=== PATIENT | female | born 1955 | race Caucasian/White ===

== ENCOUNTER 2019-06-07 08:20 | Outpatient (CLI) | payer OTHER, BC, SELFPAY ==
[2019-06-07 08:38] LABS: Hematocrit 41.9 % (35.0-49.0); Hemoglobin 13.6 g/dL (12.0-15.0); Mean Corpuscular HGB Conc 32.5 g/dL (32.0-36.0); Mean Corpuscular Hemoglobin 31.7 pg (27.0-31.0); Mean Corpuscular Volume 97.7 fL (78.0-102.0); Mean Platelet Volume 9.6 fl (9.2-11.8); Platelet Count Result 219 K/mm3 (150-420); Red Blood Count 4.29 M/mm3 (4.20-5.40); White Blood Count 5.1 K/mm3 (4.8-10.8)
[2019-06-07 09:17] LABS: Alanine Aminotransferase 29 U/L (14-59); Albumin Level 4.9 g/dL (3.4-5.0); Alkaline Phosphatase 80 U/L (46-116); Anion Gap 12.5 mmol/L (7-16); Aspartate Amino Transferase 33 U/L (15-37); Bilirubin Direct 0.2 mg/dL (0-0.2); Bilirubin,Total 0.7 mg/dL (0.00-1.00); Blood Urea Nitrogen 11 mg/dL (7-18); Calcium 9.5 mg/dL (8.5-10.1); Carbon Dioxide 31 mmol/L (21-32); Chloride 106 mmol/L (98-108); Cholesterol 155 mg/dL (0-200); Estimated Glomerular Filt Rate > 60; Glucose 87 mg/dL (70-99); HDL Direct 76 mg/dL (40-60); LDL Cholesterol Calculated 67 mg/dL (<130); Osmolality Calculated 298 mOsm/kg (285-295); Potassium 4.5 mmol/L (3.5-5.1); Sodium 145 mmol/L (136-145); Total Protein 7.3 g/dL (6.4-8.2); Triglycerides 59 mg/dL (0-150)
[2019-06-10 18:55] LABS: Immunoglobulin G 557 mg/dL (600-1540)
[2019-06-11 01:09] LABS: NIL 0.02 IU/mL; Quantiferon TB Plus, 1T NEGATIVE (NEGATIVE); TB1-NIL 0.01 IU/mL
== END 2019-06-07 08:21 | disposition home or self-care (01) ==
LOC: CHSLAB 08:24
PROVIDERS: PCP Family Medicine
DX: R13.10 Dysphagia, unspecified (principal); I10 Essential (primary) hypertension; Z79.899 Other long term (current) drug therapy
CPT/HCPCS: 36415; 80048; 80061; 80076; 82784; 85027; 86480

== ENCOUNTER 2019-06-10 08:48 | Outpatient (RCR) | payer OTHER, BC, SELFPAY ==
--- NOTE | 2019-06-10 10:06 | PTOPEVAL ---
Thank you for referring this patient to [facility]. Please review, sign, date and return this plan of care DC. I agree with and certify that the following plan of care is medically necessary. Referring Physician Date Admitting Provider: Attending Provider: Florencio Reyes MD Referring Provider: *PT Outpatient Evaluation Start: 06/10/19 08:53 Freq: Status: Active Protocol: Document 06/10/19 08:53 BRIA (Rec: 06/10/19 09:34 BRAI [id number]) Therapy Assessment Status Assessment Status Assessment Status Evaluation Evaluation Information Problem Diagnosis right knee ankylosis Onset 05/27/19 Subjective Information Pt. reports that she has noted Query Text:As Reported By Patient/ increasing stiffening of the Family right knee. She reports that she is tripping more often due to inability to bend her knee . She reports that she notes that her toe catches the ground because she cannot bend her knee. She notes that she has changed the way she walks due to difficulty with right knee mobility. She has hx bilateral MERRY, bilateral TKA and left ankle replacement. She reports that her goal is to improve her right knee mobility and states that she is hopeful to reduce right knee pain. Diagnostic Tests X-Rays For This Problem Yes Prior Level of Function Activity Level (Last 3 Months) Occupation retired Hand Dominance Right Activity of Daily Living Ability Independent Indoor/Home Mobility Independent Community Mobility Independent Stairs Ability Independent Functional Cognition (Planning, Shopping Independent , Taking Medications) Cooking Yes Cleaning Yes Laundry Yes Shopping Yes Driving Yes Pain Assessment Pain Scale Pain Scale Used Numeric (1 - 10) Self Report Pain Assessment Right Knee(s) Reported Pain Level 5 Pain Frequency Continuous Current Pain Intensity 5 Lowest Pain Intensity 3 Greatest Pain Intensity 9 Pain Aggravating Factors Prolonged Position,Stair
--- NOTE | 2019-07-22 08:21 | PTOPEVAL ---
Thank you for referring Qing Abdullahi to [facility]. Please review, sign, date and return this plan of care DC. I agree with and certify that the following plan of care is medically necessary. Referring Physician Date Admitting Provider: Attending Provider: Florencio Reyes MD Referring Provider: *PT Outpatient Evaluation Start: 06/10/19 08:53 Freq: Status: Active Protocol: Document 07/15/19 08:16 BRIA (Rec: 07/15/19 08:28 BRIA [id number]) Therapy Assessment Status Assessment Status Assessment Status Re-evaluation Outpatient Past Medical History Neurological History Hx Neurological Disorders No Significant History Cardiovascular History Hx Hypertension Yes Respiratory History Hx Chronic Obstructive Pulmonary Disease Yes (COPD) Gastrointestinal History Hx Other Gastrointestinal Disorders Yes: DYSPHAGIA Genitourinary History Hx Kidney Stones Yes: 2013 Musculoskeletal History Hx Arthritis Yes: RHEUMATOID Hx Joint Replacement Yes: BILATERAL SHOULDER, HIP, KNEE & L ANKLE Hematological History Hx Blood Transfusion Reaction Yes: AFTER SURGERY Endocrine History Hx Endocrine Disorders No Significant History HEENT History Hx Sinus Problems Yes: SEPTOPLASTY / TURBINECTOMY Integumentary History Hx Skin Disorders No Significant History Reproductive History Hx Reproductive Disorders No Significant History Psychosocial History Hx Psychiatric Disorders No Significant History Pain History History of Any Previous or Ongoing No Significant History Instance of Pain Anesthesia History Hx Post-Op Nausea/Vomiting Yes Evaluation Information Problem Diagnosis right knee ankylosis Subjective Information Pt. reports that she continues Query Text:As Reported By Patient/ to note improved mobility. Family She does have pain, but states that it is more mild today. She reports that she is able to walk over uneven terrain with less pain. Pain Assessment Pain Scale Pain Scale Used Numeric (1 - 10) Self Report Pain Assessment Right Knee(s) Reported Pain Level 2 Pain Score Pain Score 2: Self Report Lower Extremity Range of Motion General Lower Extremity Range of Motion Gross Lower Extremity Range of Motion right knee AROM 5-65 degrees Comments Lower Extremity Muscle Strength Testing General Lower Extremity Strength Gross Lower Extremity Strength bilateral hip flexion 4+/5, right hip abduction 4-/5, left
== END 2019-08-08 10:51 | disposition home or self-care (01) ==
LOC: CHSPT 08:48
PROVIDERS: Visit Provider Orthopaedic Surgery
DX: M24.669 Ankylosis, unspecified knee (principal)
CPT/HCPCS: 97110; 97112; 97140; 97161

== ENCOUNTER 2019-06-27 01:32 | Day surgery (SDC) | payer OTHER, BC, SELFPAY ==
[2019-06-21 13:09] VITALS: BMI 22.5
[2019-06-27 08:31] VITALS: BP 140/66; PULSE 70; RESP 16; TEMP 37.3; O2SAT 98; BMI 21.9
--- NOTE | 2019-06-27 08:45 | WPDANESEPPF ---
Anes - Initial Pre Proc Eval Procedure: Operation Date: 06/27/19 09:15 Proposed Procedures p Esophagogastroduodenoscopy - Randy Jang MD Date/Time: 06/27/19 08:45 Surgeon: Randy Jang MD Pre Op Diagnosis: Dysphagia Patient Data Age: 63 Gender: F Height: 1.65 m Weight: 59.7 kg Last Vital Signs Temp 37.3 C 06/27/19 08:31 Pulse 70 06/27/19 08:31 Resp 16 06/27/19 08:31 BP 140/66 06/27/19 08:31 Pulse Ox 98 06/27/19 08:31 Allergies Allergy/AdvReac Type Severity Reaction Status Date / Time levofloxacin [Levaquin] Allergy Intermediate Unknown Verified 06/27/19 08:30 Penicillins Allergy Intermediate Unknown Verified 06/27/19 08:30 clindamycin AdvReac Severe Itching on Verified 06/27/19 08:30 scalp Cephalosporins AdvReac Mild Itching Verified 06/27/19 08:30 Mushroom AdvReac Intermediate ARTHRITIS Uncoded 06/27/19 08:30 SWELLS UP. Home Medications Medication Instructions Recorded Confirmed Type cetirizine 5 mg-pseudoephedrine ER 1 tablet PO Q12H 03/07/19 06/21/19 History 120 mg tablet,extended release,12hr lisinopril 20 mg tablet 20 mg PO DAILY 03/07/19 06/21/19 History oxaprozin 600 mg tablet 1,200 mg PO DAILY tablet 03/07/19 06/21/19 History ranitidine HCl 150 mg tablet 150 mg PO BID tablet 03/07/19 06/21/19 History ascorbic acid (vitamin C) 500 mg 500 mg PO DAILY 05/27/19 06/21/19 History capsule black cohosh 540 mg capsule 540 mg PO DAILY 05/27/19 06/21/19 History cholecalciferol (vitamin D3) 125 125 mcg PO DAILY 05/27/19 06/21/19 History mcg (5,000 unit) capsule cranberry extract 250 mg capsule 250 mg PO DAILY 05/27/19 06/21/19 History folic acid 800 mcg tablet 0.8 mg PO DAILY 05/27/19 06/21/19 History omeprazole 20 mg capsule,delayed 20 mg PO DAILY 05/27/19 06/21/19 History release potassium gluconate 595 mg (99 mg) 595 mg PO DAILY 05/27/19 06/21/19 History tablet pyridoxine (vitamin B6) 100 mg 100 mg PO DAILY 05/27/19 06/21/19 History tablet vitamin A 8,000 unit PO DAILY 06/21/19 06/21/19 History Patient hx anesthesia problems: none Family hx anesthesia problems: none [facility] Past Medical History Medical History (Updated 06/27/19 @ 08:44 by Krzysztof Bianchi DO) Arthrofibrosis of knee joint Colon cancer screening Dysphagia History of revision of total replacement of right knee joint (~06/2010) Hypertension Rheumatoid arthritis Surgical History Surgical History History of left ankle joint replacement (~08/2015) History of left hip replacement (~02/2008) History of left knee replacement (~11/2000) History of left shoulder replacement (~06/2011) History of total replacement of right shoulder joint (~09/2003) History of total right hip replacement (~01/2008) History of total right knee replacement (~04/2000) Social History Social History Smoking status: Never smoker Alcohol intake: never Substance use: never Anes - Eval Final PreProcedure Day of Procedure 06/27/19 08:45 Patient weight: normal Heart: regular rate and rhythm Lungs: clear to auscultation and normal air movement Airway: Mallampati scale class II Neurological: alert and oriented Last oral intake: >/= 8 hours ASA classification: III Emergent: no Anesthetic plan: proceed Anesthesia type and monitoring: general GIVS and standard monitoring Informed Consent: The patient's anesthetic plan and its attendant risks and benefits were discussed with the patient/family/POA. Questions were solicited and answers provided to the satisfaction of the patient/family/POA.
[2019-06-27] MEDS: LACTATED RINGERS 1,000 ML 150 ML IV CONT (08:51)
--- NOTE | 2019-06-27 09:08 | WPDHPUPDATE1 ---
History and Physical Update Update Date/Time: 06/27/19 09:08 History and Physical has been reviewed, including an updated exam of the patient. There are NO changes in the patient's condition. Risks, benefits, and alternatives have been discussed and questions answered. Patient agrees to proceed with procedure.
[2019-06-27 09:30] VITALS: BP 120/63; PULSE 74; RESP 16; O2SAT 100
[2019-06-27 09:40] VITALS: BP 146/74; PULSE 77; RESP 16; O2SAT 100
[2019-06-27 09:50] VITALS: BP 122/77; PULSE 69; RESP 16; O2SAT 100
== END 2019-06-27 09:50 | disposition home or self-care (01) ==
PROVIDERS: PCP Family Medicine; Visit Provider Internal Medicine Gastroenterology
PROC: 0DJ08ZZ Inspection of Upper Intestinal Tract, Via Natural or Artificial Opening Endoscopic (ICD-10-PCS; CPT 43235; principal; 2019-06-27 09:15)
DX: R13.10 Dysphagia, unspecified (principal); K21.0 Gastro-esophageal reflux disease with esophagitis; K29.50 Unspecified chronic gastritis without bleeding; M06.9 Rheumatoid arthritis, unspecified; I10 Essential (primary) hypertension
CPT/HCPCS: 43239; 87081; 88305; J2704; J7120

== ENCOUNTER 2019-07-02 12:13 | Outpatient (CLI) | payer OTHER, BC, SELFPAY ==
--- NOTE | ~2019-07-02 | US_ITS ---
EXAMINATION: US renal BI EXAM DATE: 07/02/2019 12:49 INDICATION: Bilateral lower flank pain. TECHNIQUE: Multiple grayscale and Doppler images of the kidneys were obtained (by a technologist who performed the scan) and subsequently reviewed. There is no prior study for comparison. FINDINGS: Right kidney: There is normal contour and echogenicity. It measures 10.5 x 3.5 centimeters. There is a cyst measuring about 1.5 cm, another smaller cyst. Additional 5 mm hyperechoic focus with posterio r shadowing, could be nephrolithiasis. There is no hydronephrosis. Left kidney: There is normal contour and echogenicity. It measures 11.4 x 4.1 x 4.2 centimeters. The re is a cystic mass in the superior pole of the left kidney with septation, and possibly wall thicken ing. This measures up to 3.6 cm, size may be mildly increased compared to a CT scan from 2013. Ther e is no hydronephrosis. Bladder unremarkable. IMPRESSION: 1. Left renal lesion with mild complexity, mild interval increase in size compared to 2013. Recomme nd renal MRI examination for further evaluation. 2. Probable right nephrolithiasis. Reviewed, dictated and finalized at location A. IMPRESSION: 1. Left renal lesion with mild complexity, mild interval increase in size comp ared to 2013. Recommend renal MRI examination for further evaluation. 2. Probable right nephrolithiasis.
== END 2019-07-02 12:14 | disposition home or self-care (01) ==
LOC: CHSIMG 12:15
PROVIDERS: PCP Family Medicine; Visit Provider Nurse Practitioner Family
DX: R10.9 Unspecified abdominal pain (principal); R31.9 Hematuria, unspecified
CPT/HCPCS: 76775

== ENCOUNTER 2019-07-06 08:20 | Outpatient (CLI) | payer OTHER, BC, SELFPAY ==
[2019-07-06 09:32] LABS: Estimated Glomerular Filt Rate > 60
== END 2019-07-06 08:21 | disposition home or self-care (01) ==
LOC: CHSIMG 08:22
PROVIDERS: PCP Family Medicine; Visit Provider Nurse Practitioner Family
DX: N28.89 Other specified disorders of kidney and ureter (principal)
CPT/HCPCS: 99199

== ENCOUNTER 2019-07-27 08:08 | Outpatient (CLI) | payer OTHER, BC, SELFPAY ==
--- NOTE | ~2019-07-27 | MR_ITS ---
EXAMINATION: MR abdomen wo/w con DATE: 07/27/2019 10:58 INDICATION: Left kidney mass. TECHNIQUE: Magnetic resonance imaging (MRI) of the abdomen was performed without and with 10 mL Multi Ramona intravenous contrast. Sequences included coronal T2-weighted FS FSE, coronal and axial FIESTA F S, coronal LAVA-flex, axial LAVA, axial T2-weighted FSE, axial T1-weighted dual-echo FSPGR, axial STI R FSE, and axial DWI. Postcontrast sequences included coronal LAVA-flex and a time course of axial LA VA. COMPARISON: Ultrasound kidneys 07/02/2019, CT abdomen and pelvis 12/03/2012 FINDINGS: Breast implants are noted. There is a 5 mm cyst in the liver. The gallbladder, spleen, pancreas, and adrenal glands are normal. There are simple cysts in the kidneys measuring up to 1.8 cm on the right. There is a 4.4 cm cyst in left kidney with a few thin septa (Bosniak type II). There are no dilated loops of bowel. There are no pathologically enlarged lymph nodes. There is no free intraperitoneal fl uid. IMPRESSION: 1. Benign cysts in the kidneys. Reviewed, dictated and finalized at location A.
[2019-07-27 09:16] LABS: Estimated Glomerular Filt Rate > 60
== END 2019-07-27 08:09 | disposition home or self-care (01) ==
LOC: CHSIMG 08:10
PROVIDERS: PCP Family Medicine; Visit Provider Family Medicine
DX: N28.89 Other specified disorders of kidney and ureter (principal)
CPT/HCPCS: 74183; A9577

== ENCOUNTER 2019-07-30 10:44 | Outpatient (CLI) | payer OTHER, BC, SELFPAY ==
--- NOTE | ~2019-07-30 | XR_ITS ---
EXAMINATION: XR sacroiliac joints min 3V, XR lumbar spine 2-3V DATE: 07/30/2019 11:08 INDICATION: Dorsalgia TECHNIQUE: 1. Anteroposterior and lateral views of the lumbar spine, and cone-down lateral view of the lumbosacr al junction were obtained. 2. AP and left and right oblique views of the sacroiliac joints were obtained. COMPARISON: 11/10/2016 FINDINGS: Lumbar spine: 3 mm anterolisthesis L4 on L5. Vertebral body heights are normal. Mild disc height loss at L3-L4 and L4-L5. Severe disc height loss at L5-S1. Multilevel bilateral lumbar facet osteoarthritis, severe on the right at L4-L5 and moderate on the left at L4-L5 and L5-S1, otherwise mild. Multiple stones proje ct over the upper pole of the right kidney. Sacroiliac joints: Mild bilateral sacroiliac osteoarthritis with no evident erosions to suggest an inflammatory sacroili itis. Sacral arches appear intact. Partially visualized bilateral total hip arthroplasties. Multiple surgical clips near left inguinal region suggesting prior hernia repair. IMPRESSION: 1. Severe spondylosis at L5-S1 with lesser spondylosis in the more cephalad lumbar spine. 2. Mild bilateral sacroiliac osteoarthritis. 3. Right nephrolithiasis. Reviewed, dictated and finalized at location A. IMPRESSION: 1. Severe spondylosis at L5-S1 with lesser spondylosis in the more cephalad lum bar spine. 2. Mild bilateral sacroiliac osteoarthritis. 3. Right nephrolithiasis.
[2019-07-30 11:27] LABS: Add Urine Microscopic? YES; Appearance Urine Sl Cloudy (Clear); Bilirubin Urine Negative (Negative); Blood Urine 3+ (Negative); Color Urine Yellow (Yellow); Glucose Urine UA Negative (Negative); Ketones Urine Negative (Negative); Leukocyte Esterase Ur Negative (Negative); Nitrate Urine Negative (Negative); Protein Urine Negative (Negative); Urobilinogen Urine 0.2 mg/dL (0.2-1.0)
[2019-07-30 11:32] LABS: Bacteria Urine Trace /hpf; RBC Urine 51-75 /hpf (0-2); Squamous Epithelial Cell Urine Rare /hpf (Few); WBC Urine 0-3 /hpf (0-3)
== END 2019-07-30 10:45 | disposition home or self-care (01) ==
PROVIDERS: PCP Family Medicine; Visit Provider Family Medicine
DX: R31.9 Hematuria, unspecified (principal); M54.9 Dorsalgia, unspecified
CPT/HCPCS: 72100; 72202; 81001

== ENCOUNTER 2019-10-22 10:52 | Outpatient (CLI) | payer OTHER, BC, SELFPAY ==
[2019-10-22 11:08] LABS: Basophils Absolute Auto 0.02 K/mm3 (0.00-0.10); Basophils Percent Auto 0.5 % (0.0-1.0); Eosinophils Absolute Auto 0.07 K/mm3 (0.02-0.50); Eosinophils Percent Auto 1.8 % (1.0-6.0); Hematocrit 39.4 % (35.0-49.0); Hemoglobin 13.1 g/dL (12.0-15.0); Immature Granulocyte Absolute 0.01 K/mm3 (0.00-0.00); Immature Granulocyte Percent A 0.3 % (0.0-0.0); Lymphocytes Absolute Auto 1.41 K/mm3 (1.10-4.50); Lymphocytes Percent Auto 35.3 % (18.0-42.0); Mean Corpuscular HGB Conc 33.2 g/dL (32.0-36.0); Mean Corpuscular Hemoglobin 32.1 pg (27.0-31.0); Mean Corpuscular Volume 96.6 fL (78.0-102.0); Mean Platelet Volume 9.5 fl (9.2-11.8); Monocytes Absolute Auto 0.32 K/mm3 (0.10-0.90); Neutrophils Absolute Auto 2.2 K/mm3 (1.7-7.2); Neutrophils Percent Auto 54.1 % (50.0-70.0); Platelet Count Result 243 K/mm3 (150-420); Red Blood Count 4.08 M/mm3 (4.20-5.40); Red Cell Distribution Width 12.9 % (11.6-14.4)
== END 2019-10-22 10:53 | disposition home or self-care (01) ==
PROVIDERS: PCP Internal Medicine Rheumatology; Visit Provider Internal Medicine Rheumatology
DX: Z79.899 Other long term (current) drug therapy (principal)
CPT/HCPCS: 36415; 85025

== ENCOUNTER 2020-03-02 10:39 | Outpatient (CLI) | payer OTHER, BC, SELFPAY ==
--- NOTE | ~2020-03-02 | DEXA_ITS ---
Bone Density Report Name: Qing Abdullahi Age: 64 Sex: Female Ethnicity: White Date of : 1955 Indication: postmenopausal; screening for osteoporosis; rheumatoid arthritis; Referring Provider: Debbie, Mervin Perkins Study: Bone densitometry was performed. Exam Date: March 02, 2020 Accession number: [id number] Bone Density: Region BMD T-score Z-score Classification AP Spine(L1-L4) 0.907 -1.3 0.3 Osteopenia World Health Organization criteria for BMD impression classify patients as: Normal (T-score at or above -1.0), Osteopenia (T-score between -1.0 and -2.5), or Osteoporosis (T-score at or below -2.5). Previous Exams: Region Exam Age BMD T-score BMD Change BMD Change Date g/cm2 vs Baseline vs Previous AP Spine (L1-L4) 03/02/2020 64 0.907 -1.3 -0.136 (-13.1% -0.136 (-13.1% 09/19/2011 55 1.044 0.0 *Denotes significance at 95% confidence level, LSC for AP Spine = 0.022 g/cm2 # Denotes dissimilar scan types or analysis methods Clinical Information Provided by Patient: Has rheumatoid arthritis Has used the following medications: Vitamin D Patient maximum height was 65 Drinks caffeinated beverages Onset of menses at age 19 Number of children 0 Impression: The patient has low bone mass, based on the Total Spine T-score. No significant bone loss was observed. Discussion: BONE DENSITY IS LOW AT ONE OR MORE SKELETAL SITES. This patient's lowest T-score is low at one or more skeletal sites. It meets the World Health Organization's (WHO) criteria for ?low bone mass? (T-score between -1.0 and -2.5). The patient's 10-year risk of fracture as calculated by FRAX is less than the threshold where pharmacological therapy is recommended by the National Osteoporosis Foundation (NOF). However, all treatment decisions require clinical judgment and consideration of individual patient factors, including patient preferences, comorbidities, previous drug use, risk factors not captured in the FRAX model (e.g., frailty, falls, vitamin D deficiency, increased bone turnover, interval significant decline in bone density) and possible under or overestimation of fracture risk by FRAX. The patient should follow a healthful lifestyle (good nutrition with adequate calcium and vitamin D, and appropriate weight-bearing exercise). Follow-Up: Consider repeating this study in 2 to 3 years to reassess this patient's status, or sooner if there is some new clinical indication. Reported by: Dr. Rommel Wild on 03/02/2020 11:23:00 AM. Reviewed, dictated and finalized at location A. [facility]
== END 2020-03-02 10:40 | disposition home or self-care (01) ==
LOC: CHSIMG 10:42
PROVIDERS: PCP Internal Medicine Rheumatology; Visit Provider Internal Medicine Rheumatology
DX: Z78.0 Asymptomatic menopausal state (principal)
CPT/HCPCS: 77080

== ENCOUNTER 2020-03-31 14:40 | Outpatient (CLI) | payer OTHER, BC, SELFPAY ==
[2020-03-31 14:55] LABS: Basophils Absolute Auto 0.02 K/mm3 (0.00-0.10); Basophils Percent Auto 0.5 % (0.0-1.0); Eosinophils Absolute Auto 0.07 K/mm3 (0.02-0.50); Eosinophils Percent Auto 1.6 % (1.0-6.0); Hematocrit 38.3 % (35.0-49.0); Hemoglobin 12.5 g/dL (12.0-15.0); Immature Granulocyte Absolute 0.03 K/mm3 (0.00-0.00); Immature Granulocyte Percent A 0.7 % (0.0-0.0); Lymphocytes Absolute Auto 1.75 K/mm3 (1.10-4.50); Lymphocytes Percent Auto 39.7 % (18.0-42.0); Mean Corpuscular HGB Conc 32.6 g/dL (32.0-36.0); Mean Corpuscular Hemoglobin 32.3 pg (27.0-31.0); Mean Platelet Volume 9.3 fl (9.2-11.8); Monocytes Absolute Auto 0.43 K/mm3 (0.10-0.90); Monocytes Percent Auto 9.8 % (2.0-11.0); Neutrophils Absolute Auto 2.1 K/mm3 (1.7-7.2); Neutrophils Percent Auto 47.7 % (50.0-70.0); Platelet Count Result 295 K/mm3 (150-420); Red Blood Count 3.87 M/mm3 (4.20-5.40); Red Cell Distribution Width 12.8 % (11.6-14.4); White Blood Count 4.4 K/mm3 (4.8-10.8)
[2020-03-31 15:11] LABS: Alanine Aminotransferase 30 U/L (14-59); Albumin Level 4.5 g/dL (3.4-5.0); Alkaline Phosphatase 100 U/L (46-116); Aspartate Amino Transferase 28 U/L (15-37); Bilirubin Direct 0.2 mg/dL (0-0.2); Bilirubin,Total 0.5 mg/dL (0.00-1.00); Estimated Glomerular Filt Rate 47; Total Protein 7.6 g/dL (6.4-8.2)
== END 2020-03-31 14:41 | disposition home or self-care (01) ==
LOC: CHSLAB 14:42
PROVIDERS: PCP Family Medicine; Visit Provider Internal Medicine Rheumatology
DX: Z79.899 Other long term (current) drug therapy (principal)
CPT/HCPCS: 36415; 80076; 82565; 85025

== ENCOUNTER 2020-06-17 11:07 | Outpatient (CLI) | payer OTHER, BC, SELFPAY ==
--- NOTE | ~2020-06-17 | XR_ITS ---
EXAMINATION: XR shoulder LT min 2V DATE: 06/17/2020 11:46 INDICATION: Left shoulder pain TECHNIQUE: AP internally and externally rotated, AP oblique externally rotated and transscapular Y vi ews of the left shoulder were obtained. COMPARISON: None FINDINGS: Left shoulder hemiarthroplasty with noncemented humeral component which appears well seated in near-a natomic alignment. There is remodeling of the glenoid with prominent osteophytes along the inferior g lenoid. No fracture. Mild left acromioclavicular osteoarthritis with inferior directed osteophytes. S oft tissues are unremarkable. Multiple scattered tiny calcified pulmonary nodules consistent with old granulomatous disease. Moderate to severe lower cervical facet osteoarthritis. IMPRESSION: Left glenohumeral hemiarthroplasty with likely secondary remodeling of the glenoid. No acute osseous abnormality. Reviewed, dictated and finalized at location B. NESS CONSULT IMPRESSION: Left glenohumeral hemiarthroplasty with likely secondary remodeling of the mayank oid. No acute osseous abnormality.
--- NOTE | ~2020-06-17 | XR_ITS ---
EXAMINATION: XR_CERV2-3V_CR EXAM DATE: 06/17/2020 11:46 INDICATION: Cervical pain after fall. TECHNIQUE: Cervical spine frontal, lateral, lateral swimmers, submentovertex and open-mouth odontoid projections. Prior study from 06/15/2011 not retrieving at this time. FINDINGS: There is no evidence of acute cervical fracture. The odontoid process is intact. Pre-dens space is normal. Prevertebral soft tissue is normal. There are no soft tissue abnormalities identi fied. Cervical disc heights are maintained. There is advanced cervical arthropathy and likely causin g multilevel neural foraminal stenosis. Bilateral shoulder replacements. The vertebral bodies are al igned in the AP dimension. Lung apices are clear. IMPRESSION: 1. No acute cervical findings. 2. Advanced cervical arthropathy. Reviewed, dictated and finalized at location A. [employer]
== END 2020-06-17 11:08 | disposition home or self-care (01) ==
LOC: CHSIMG 11:10
PROVIDERS: PCP Family Medicine; Visit Provider Family Medicine
DX: M25.512 Pain in left shoulder (principal)
CPT/HCPCS: 72040; 73030

== ENCOUNTER 2020-06-23 07:40 | Outpatient (RCR) | payer OTHER, BC, SELFPAY ==
--- NOTE | 2020-06-23 08:25 | PTOPEVAL ---
Thank you for referring Qing Abdullahi to [facility].? The patient is scheduled to be seen for therapy? __2__x/week for 10 visits. Please review, sign, date and return this plan of care DC. I agree with and certify that the following plan of care is medically necessary. Referring Physician Date Admitting Provider: Attending Provider: Krunal Sarmiento DO Referring Provider: *PT Outpatient Evaluation Start: 06/23/20 07:06 Freq: Status: Active Protocol: Document 06/23/20 07:07 BRIA (Rec: 06/23/20 08:00 BRIA [id number]) Therapy Assessment Status Assessment Status Assessment Status Evaluation Outpatient Past Medical History Neurological History Hx Neurological Disorders No Significant History Cardiovascular History Hx Hypertension Yes Respiratory History Hx Chronic Obstructive Pulmonary Disease Yes (COPD) Gastrointestinal History Hx Other Gastrointestinal Disorders Yes: DYSPHAGIA Genitourinary History Hx Kidney Stones Yes: 2013 Musculoskeletal History Hx Arthritis Yes: RHEUMATOID Hx Joint Replacement Yes: BILATERAL SHOULDER, HIP, KNEE & L ANKLE Hematological History Hx Blood Transfusion Reaction Yes: AFTER SURGERY Endocrine History Hx Endocrine Disorders No Significant History HEENT History Hx Sinus Problems Yes: SEPTOPLASTY / TURBINECTOMY Integumentary History Hx Skin Disorders No Significant History Reproductive History Hx Reproductive Disorders No Significant History Psychosocial History Hx Psychiatric Disorders No Significant History Pain History History of Any Previous or Ongoing No Significant History Instance of Pain Anesthesia History Hx Post-Op Nausea/Vomiting Yes Evaluation Information Problem Diagnosis shoulder pain left, cervicalgia, unsteady gait Onset 06/08/20 Subjective Information Pt. reports that she stumbled Query Text:As Reported By Patient/ and fell into the door frame Family while in her home. She describes striking the front of the left shoulder and into the left side of the neck. In the past weeks she has fallen 2 times. She reports that her pain intensity is staying consistent. She reports that her pain is constant and does not have anything specific that triggers her pain. she reports that the pain does
== END 2020-07-23 11:17 | disposition home or self-care (01) ==
LOC: CHSPT 07:40
PROVIDERS: PCP Family Medicine; Visit Provider Family Medicine
DX: R26.81 Unsteadiness on feet (principal); M25.519 Pain in unspecified shoulder; M54.2 Cervicalgia
CPT/HCPCS: 97014; 97110; 97140; 97162; G0283

== ENCOUNTER 2020-06-29 07:45 | Outpatient (CLI) | payer OTHER, BC, SELFPAY ==
--- NOTE | 2020-06-29 07:47 | ECG_ITS ---
Measurements Intervals [place] Rate: 61 P: 79 CO: 157 QRS: 65 QRSD: 105 T: 72 QT: 410 QTc: 415 Interpretive Statements SINUS RHYTHM POSSIBLE LEFT ATRIAL ENLARGEMENT INCOMPLETE RIGHT BUNDLE BRANCH BLOCK BORDERLINE ECG Electronically Signed On 06-29-2020 8:18:53 CDT by Jose Alberto Jessica D.O.
== END 2020-06-29 07:46 | disposition home or self-care (01) ==
LOC: CHSCARD 07:47
PROVIDERS: PCP Family Medicine; Visit Provider Family Medicine
DX: Z01.818 Encounter for other preprocedural examination (principal)
CPT/HCPCS: 93005

== ENCOUNTER 2020-07-09 07:22 | Outpatient (CLI) | payer OTHER, BC, SELFPAY ==
[2020-07-09 07:32] LABS: Basophils Absolute Auto 0.02 K/mm3 (0.00-0.10); Basophils Percent Auto 0.4 % (0.0-1.0); Eosinophils Absolute Auto 0.04 K/mm3 (0.02-0.50); Eosinophils Percent Auto 0.9 % (1.0-6.0); Hemoglobin 12.8 g/dL (12.0-15.0); Immature Granulocyte Absolute 0.02 K/mm3 (0.00-0.00); Immature Granulocyte Percent A 0.4 % (0.0-0.0); Lymphocytes Absolute Auto 1.32 K/mm3 (1.10-4.50); Lymphocytes Percent Auto 28.5 % (18.0-42.0); Mean Corpuscular HGB Conc 32.8 g/dL (32.0-36.0); Mean Corpuscular Hemoglobin 32.6 pg (27.0-31.0); Mean Corpuscular Volume 99.2 fL (78.0-102.0); Mean Platelet Volume 8.9 fl (9.2-11.8); Monocytes Absolute Auto 0.49 K/mm3 (0.10-0.90); Monocytes Percent Auto 10.6 % (2.0-11.0); Neutrophils Absolute Auto 2.7 K/mm3 (1.7-7.2); Neutrophils Percent Auto 59.2 % (50.0-70.0); Platelet Count Result 245 K/mm3 (150-420); Red Blood Count 3.93 M/mm3 (4.20-5.40); Red Cell Distribution Width 13.4 % (11.6-14.4); White Blood Count 4.6 K/mm3 (4.8-10.8)
[2020-07-09 08:05] LABS: Alanine Aminotransferase 35 U/L (14-59); Albumin Level 4.6 g/dL (3.4-5.0); Alkaline Phosphatase 97 U/L (46-116); Aspartate Amino Transferase 32 U/L (15-37); Bilirubin Direct 0.2 mg/dL (0-0.2); Bilirubin,Total 0.6 mg/dL (0.00-1.00); Cholesterol 173 mg/dL (0-200); Estimated Glomerular Filt Rate > 60; HDL Direct 81 mg/dL (40-60); LDL Cholesterol Calculated 78 mg/dL (<130); Total Protein 7.3 g/dL (6.4-8.2); Triglycerides 72 mg/dL (0-150)
== END 2020-07-09 07:23 | disposition home or self-care (01) ==
LOC: CHSLAB 07:23
PROVIDERS: PCP Family Medicine; Visit Provider Internal Medicine Rheumatology
DX: M06.9 Rheumatoid arthritis, unspecified (principal)
CPT/HCPCS: 36415; 80061; 80076; 82565; 85025

== ENCOUNTER 2021-01-14 08:32 | Outpatient (CLI) | payer OTHER, BC, SELFPAY ==
[2021-01-14 08:47] LABS: Basophils Absolute Auto 0.02 K/mm3 (0.00-0.10); Basophils Percent Auto 0.4 % (0.0-1.0); Eosinophils Absolute Auto 0.07 K/mm3 (0.02-0.50); Eosinophils Percent Auto 1.5 % (1.0-6.0); Hematocrit 39.5 % (35.0-49.0); Hemoglobin 12.7 g/dL (12.0-15.0); Immature Granulocyte Absolute 0.04 K/mm3 (0.00-0.00); Immature Granulocyte Percent A 0.9 % (0.0-0.0); Lymphocytes Absolute Auto 1.38 K/mm3 (1.10-4.50); Lymphocytes Percent Auto 30.2 % (18.0-42.0); Mean Corpuscular HGB Conc 32.2 g/dL (32.0-36.0); Mean Corpuscular Hemoglobin 31.8 pg (27.0-31.0); Mean Platelet Volume 8.8 fl (9.2-11.8); Monocytes Absolute Auto 0.39 K/mm3 (0.10-0.90); Monocytes Percent Auto 8.5 % (2.0-11.0); Neutrophils Absolute Auto 2.7 K/mm3 (1.7-7.2); Neutrophils Percent Auto 58.5 % (50.0-70.0); Platelet Count Result 272 K/mm3 (150-420); Red Blood Count 3.99 M/mm3 (4.20-5.40); Red Cell Distribution Width 13.2 % (11.6-14.4); White Blood Count 4.6 K/mm3 (4.8-10.8)
[2021-01-14 09:31] LABS: Alanine Aminotransferase 45 U/L (14-59); Albumin Level 4.6 g/dL (3.4-5.0); Alkaline Phosphatase 95 U/L (46-116); Anion Gap 9 mmol/L (8-16); Aspartate Amino Transferase 37 U/L (15-37); Bilirubin,Total 0.4 mg/dL (0.00-1.00); Blood Urea Nitrogen 10 mg/dL (7-18); Calcium 9.6 mg/dL (8.5-10.1); Carbon Dioxide 31 mmol/L (21-32); Chloride 102 mmol/L (98-108); Estimated Glomerular Filt Rate > 60; Glucose 73 mg/dL (70-99); Osmolality Calculated 292 mOsm/kg (285-295); Potassium 4.6 mmol/L (3.5-5.1); Sodium 142 mmol/L (136-145); Total Protein 7.2 g/dL (6.4-8.2)
== END 2021-01-14 08:33 | disposition home or self-care (01) ==
PROVIDERS: PCP Family Medicine; Visit Provider Internal Medicine Rheumatology
DX: M06.041 Rheumatoid arthritis without rheumatoid factor, right hand (principal)
CPT/HCPCS: 36415; 80053; 85025

== ENCOUNTER 2021-06-11 07:08 | Outpatient (CLI) | payer OTHER, BC, SELFPAY ==
[2021-06-11 07:22] LABS: Basophils Absolute Auto 0.03 K/mm3 (0.00-0.10); Basophils Percent Auto 0.6 % (0.0-1.0); Eosinophils Absolute Auto 0.07 K/mm3 (0.02-0.50); Eosinophils Percent Auto 1.4 % (1.0-6.0); Hematocrit 38.7 % (35.0-49.0); Hemoglobin 12.4 g/dL (12.0-15.0); Immature Granulocyte Absolute 0.05 K/mm3 (0.00-0.00); Lymphocytes Absolute Auto 1.08 K/mm3 (1.10-4.50); Lymphocytes Percent Auto 21.5 % (18.0-42.0); Mean Corpuscular Hemoglobin 31.1 pg (27.0-31.0); Mean Platelet Volume 8.9 fl (9.2-11.8); Monocytes Absolute Auto 0.48 K/mm3 (0.10-0.90); Monocytes Percent Auto 9.6 % (2.0-11.0); Neutrophils Absolute Auto 3.3 K/mm3 (1.7-7.2); Neutrophils Percent Auto 65.9 % (50.0-70.0); Platelet Count Result 333 K/mm3 (150-420); Red Blood Count 3.99 M/mm3 (4.20-5.40); Red Cell Distribution Width 13.1 % (11.6-14.4)
[2021-06-11 08:50] LABS: Alanine Aminotransferase 25 U/L (14-59); Albumin Level 4.2 g/dL (3.4-5.0); Alkaline Phosphatase 110 U/L (46-116); Aspartate Amino Transferase 24 U/L (15-37); Bilirubin Direct 0.1 mg/dL (0-0.2); Bilirubin,Total 0.4 mg/dL (0.00-1.00); Cholesterol 180 mg/dL (0-200); Estimated Glomerular Filt Rate > 60; HDL Direct 98 mg/dL (40-60); LDL Cholesterol Calculated 73 mg/dL (<130); Thyroid Stimulating Hormone 1.16 uIU/mL (0.36-3.74); Triglycerides 45 mg/dL (0-150)
== END 2021-06-11 07:09 | disposition home or self-care (01) ==
LOC: CHSLAB 07:11
PROVIDERS: PCP Family Medicine; Visit Provider Internal Medicine Rheumatology
DX: Z79.899 Other long term (current) drug therapy (principal)
CPT/HCPCS: 36415; 80061; 80076; 82565; 84443; 85025

== ENCOUNTER 2021-08-09 07:20 | Outpatient (CLI) | payer OTHER, BC, SELFPAY ==
--- NOTE | ~2021-08-09 | CT_ITS ---
EXAMINATION: CT ankle LT wo con DATE: 08/09/2021 08:00 INDICATION: Left ankle pain and intermittent swelling. TECHNIQUE: High resolution computed tomography (CT) of the left ankle was performed without intraveno us contrast. Additional sagittal and coronal reconstructions were performed. Automated exposure contr ol and iterative reconstruction technique were employed. The dose-length product was 507.88 mGy-cm. COMPARISON: 03/15/2016 FINDINGS: Left tibiotalar arthroplasty which appears well seated in near-anatomic alignment. No periprosthetic lucency to suggest loosening or infection. Alignment appears near-anatomic. There is a lucent tunnel tract extending across the calcaneus. No fracture. The talonavicular articulation is fused. Polyartic ular osteoarthritis, moderate severity at the subtalar joint. There is suggestion of potentially deve loping early fusion across the medial margin of the articulation between the talus and the sustentacu lum galileo of the calcaneus. Additional mild to moderate polyarticular osteoarthritis in the mid and hi ndfoot most prominent at the naviculocuneiform, the calcaneocuboid articulation and the articulation between the cuboid and lateral cuneiform. There is some dystrophic calcification extending along the peroneus longus and brevis tendons which could be related to either old trauma or potentially crystal line deposition diseases such as gout. Small Achilles calcaneal spur. IMPRESSION: 1. 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 2. Left total tibiotalar arthroplasty and talonavicular arthrodesis. 3. Dystrophic calcification along the left peroneus longus and brevis tendons which could be sequela of old trauma or crystalline deposition diseases such as gout. Reviewed, dictated and finalized at location B. IMPRESSION: 1. 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 2. Left total tibiotalar arthroplasty and talonavicular arthrodesis. 3. Dystrophic calcification along the left peroneus longus and brevis tendons [facility] could be sequela of old trauma or crystalline deposition diseases such as gout.
== END 2021-08-09 07:21 | disposition home or self-care (01) ==
LOC: CHSIMG 07:21
PROVIDERS: PCP Family Medicine
DX: M25.572 Pain in left ankle and joints of left foot (principal)
CPT/HCPCS: 73700

== ENCOUNTER 2021-10-07 10:25 | Outpatient (CLI) | payer OTHER, BC, SELFPAY ==
[2021-10-07 10:41] LABS: Basophils Absolute Auto 0.02 K/mm3 (0.00-0.10); Basophils Percent Auto 0.4 % (0.0-1.0); Eosinophils Absolute Auto 0.08 K/mm3 (0.02-0.50); Eosinophils Percent Auto 1.8 % (1.0-6.0); Hematocrit 37.4 % (35.0-49.0); Hemoglobin 12.2 g/dL (12.0-15.0); Immature Granulocyte Absolute 0.04 K/mm3 (0.00-0.00); Immature Granulocyte Percent A 0.9 % (0.0-0.0); Lymphocytes Absolute Auto 1.15 K/mm3 (1.10-4.50); Lymphocytes Percent Auto 25.6 % (18.0-42.0); Mean Corpuscular HGB Conc 32.6 g/dL (32.0-36.0); Mean Corpuscular Volume 94.9 fL (78.0-102.0); Mean Platelet Volume 8.8 fl (9.2-11.8); Monocytes Absolute Auto 0.45 K/mm3 (0.10-0.90); Neutrophils Absolute Auto 2.8 K/mm3 (1.7-7.2); Neutrophils Percent Auto 61.3 % (50.0-70.0); Platelet Count Result 279 K/mm3 (150-420); Red Blood Count 3.94 M/mm3 (4.20-5.40); Red Cell Distribution Width 12.9 % (11.6-14.4); White Blood Count 4.5 K/mm3 (4.8-10.8)
--- NOTE | 2021-10-07 10:44 | ECG_ITS ---
Measurements Intervals [place] Rate: 67 P: 85 CO: 132 QRS: 64 QRSD: 99 T: 61 QT: 390 QTc: 413 Interpretive Statements SINUS RHYTHM INCOMPLETE RIGHT BUNDLE BRANCH BLOCK [90+ ms QRS DURATION, TERMINAL R IN V1/V2, 40+ ms S IN I/aVL/V4/V5/V6] BORDERLINE ECG COMPARED TO ECG 06/29/2020 08:03:43 NO SIGNIFICANT CHANGES Electronically Signed On 10-08-2021 15:51:00 CDT by Az Hernandez M.D.
[2021-10-07 11:36] LABS: Alanine Aminotransferase 18 U/L (14-59); Albumin Level 4.2 g/dL (3.4-5.0); Alkaline Phosphatase 111 U/L (46-116); Anion Gap 6 mmol/L (8-16); Aspartate Amino Transferase 26 U/L (15-37); Bilirubin,Total 0.4 mg/dL (0.00-1.00); Blood Urea Nitrogen 12 mg/dL (7-18); Calcium 9.6 mg/dL (8.5-10.1); Carbon Dioxide 30 mmol/L (21-32); Chloride 101 mmol/L (98-108); Estimated Glomerular Filt Rate > 60; Glucose 89 mg/dL (70-99); Osmolality Calculated 282 mOsm/kg (285-295); Potassium 4.8 mmol/L (3.5-5.1); Sodium 137 mmol/L (136-145); Total Protein 7.2 g/dL (6.4-8.2)
== END 2021-10-07 10:26 | disposition home or self-care (01) ==
PROVIDERS: PCP Nurse Practitioner Family; Visit Provider Nurse Practitioner Family
DX: Z01.818 Encounter for other preprocedural examination (principal)
CPT/HCPCS: 36415; 80053; 85025; 93005

== ENCOUNTER 2021-10-22 07:05 | Outpatient (CLI) | payer OTHER, BC, SELFPAY | END 2021-10-22 07:06 | disposition home or self-care (01) | LOC: CHSLAB 07:07 | PROVIDERS: PCP Nurse Practitioner Family; Visit Provider Nurse Practitioner Family | DX: Z01.818 Encounter for other preprocedural examination (principal) | CPT/HCPCS: 87081 ==

== ENCOUNTER 2021-12-28 08:58 | Outpatient (RCR) | payer OTHER, BC, SELFPAY ==
--- NOTE | 2021-12-28 12:02 | PTOPEVAL1 ---
Assessment and note entered by Trini Borrego DPT Evaluation Information Assessment Status Evaluation Diagnosis R TKA Onset 11/02/2021 Subjective Information Pt reports that she had a R TKA on 11/02/2021. This is her 3rd revision for her R knee, it is now a hinge. She reports that her MD says they were able to get to 90 degrees in the operating room. She reports that she feels her knee is doing better now since surgery but still feels very limited in her range of motion. She walks with a cane on uneven grounds, but does not use a cane on even ground. She reports she has had a few falls without serious injury due to her knee staying straight while walking. She also gets a lot of swelling in her knee. She reports knee is uncomfortable and feels stiff and has a lot of muscle tightness. Denies weakness, reports only occasional numbness/tingling. She reports she has been using biofreeze to help with her pain. Pt reports occasional discomfort when sleeping. Pt would like to be able to walk around in her yard without a cane. Reported Pain Level Pain Score 6: Self Report Assessment PT Clinical Summary Pt presents to physical therapy s/p R TKA on 2021 with pain, decreased ROM, decreased strength, and antalgic gait. These deficits make it more challenging for her to walk and stand without pain as needed for walking with her dogs and working. She was provided with an HEP focused on improving strength, balance, and mobility within her tolerance. She will benefit from skilled PT to faciliate symptom relief, improve the aforementioned impairments, and return to functional and recreational activities. Plan of Care Interventions Electrical Stimulation,Gait Training,Hot Pack/Cold Pack,Intermittent Compression,Manual Therapy, Neuro Re-education,Patient/Caregiver Educati, Therapeutic Activities,Therapeutic Exercise PT Services Indicated Yes Treatment Frequency and 1-2x week for 8 visits Duration These treatments will address the objective and functional deficits as defined above. The patient will be advanced safely and appropriately in order for the patient to progress towards his/her prior level of function. Additional exercises will be introduced and as well as a comprehensive home exercise program upon discharge, if needed, ?to ensure carryover of functional gains achieved in the clinic. This treatment plan has been reviewed and agreement upon by the patient.
== END 2022-01-13 13:59 | disposition home or self-care (01) ==
LOC: CHSPT 08:58
PROVIDERS: PCP Family Medicine
DX: T84.84XA Pain due to internal orthopedic prosthetic devices, implants and grafts, initial encounter (principal); M25.561 Pain in right knee
CPT/HCPCS: 97110; 97140; 97161

== ENCOUNTER 2021-12-30 07:56 | Outpatient (CLI) | payer OTHER, BC, SELFPAY ==
[2021-12-30 08:10] LABS: Basophils Absolute Auto 0.03 K/mm3 (0.00-0.10); Basophils Percent Auto 0.7 % (0.0-1.0); Eosinophils Absolute Auto 0.04 K/mm3 (0.02-0.50); Eosinophils Percent Auto 0.9 % (1.0-6.0); Hematocrit 33.2 % (35.0-49.0); Hemoglobin 10.4 g/dL (12.0-15.0); Immature Granulocyte Absolute 0.02 K/mm3 (0.00-0.00); Immature Granulocyte Percent A 0.4 % (0.0-0.0); Lymphocytes Absolute Auto 1.23 K/mm3 (1.10-4.50); Lymphocytes Percent Auto 26.7 % (18.0-42.0); Mean Corpuscular HGB Conc 31.3 g/dL (32.0-36.0); Mean Corpuscular Volume 95.7 fL (78.0-102.0); Mean Platelet Volume 8.8 fl (9.2-11.8); Monocytes Absolute Auto 0.48 K/mm3 (0.10-0.90); Monocytes Percent Auto 10.4 % (2.0-11.0); Neutrophils Absolute Auto 2.8 K/mm3 (1.7-7.2); Neutrophils Percent Auto 60.9 % (50.0-70.0); Platelet Count Result 380 K/mm3 (150-420); Red Blood Count 3.47 M/mm3 (4.20-5.40); Red Cell Distribution Width 15.1 % (11.6-14.4); White Blood Count 4.6 K/mm3 (4.8-10.8)
[2021-12-30 08:22] LABS: Alanine Aminotransferase 20 U/L (14-59); Aspartate Amino Transferase 23 U/L (15-37); Estimated Glomerular Filt Rate > 60
[2021-12-30 09:12] LABS: Erythrocyte Sedimentation Rate 35 mm/hr (0-20)
== END 2021-12-30 07:57 | disposition home or self-care (01) ==
LOC: CHSLAB 07:59
PROVIDERS: PCP Family Medicine
DX: Z79.899 Other long term (current) drug therapy (principal)
CPT/HCPCS: 36415; 82565; 84450; 84460; 85025; 85652

== ENCOUNTER 2022-04-28 14:09 | Outpatient (CLI) | payer OTHER, BC, SELFPAY ==
[2022-04-28 14:28] LABS: Hematocrit 33.3 % (35.0-49.0); Hemoglobin 10.2 g/dL (12.0-15.0); Mean Corpuscular HGB Conc 30.6 g/dL (32.0-36.0); Mean Corpuscular Hemoglobin 28.1 pg (27.0-31.0); Mean Corpuscular Volume 91.7 fL (78.0-102.0); Platelet Count Result 295 K/mm3 (150-420); Red Blood Count 3.63 M/mm3 (4.20-5.40); Red Cell Distribution Width 15.1 % (11.6-14.4)
[2022-04-28 14:46] LABS: Band Neutrophils Percent 0 % (0-6); Neutrophils Absolute Manual 1.44 K/mm3 (1.7-7.2); Neutrophils Percent Manual 48 % (46-73); Total Cells Counted 100
[2022-04-28 14:47] LABS: Basophils Absolute Manual 0.06 K/mm3 (0-0.1); Basophils Percent Manual 2 % (0-1); Eosinophils Absolute Manual 0.03 K/mm3 (0.02-0.5); Eosinophils Percent Manual 1 % (1-6); Lymphocytes Absolute Manual 1.29 K/mm3 (1.1-4.5); Lymphocytes Percent Manual 43 % (18-44); Monocytes Absolute Manual 0.18 K/mm3 (0.1-0.90); Monocytes Percent Manual 6 % (3-9); Platelet Estimate Adequate (Adequate)
[2022-04-28 14:58] LABS: Alanine Aminotransferase 21 U/L (14-59); Aspartate Amino Transferase 17 U/L (15-37)
== END 2022-04-28 14:10 | disposition home or self-care (01) ==
PROVIDERS: PCP Family Medicine
DX: Z79.899 Other long term (current) drug therapy (principal)
CPT/HCPCS: 36415; 84450; 84460; 85025

== ENCOUNTER 2022-09-02 08:00 | Outpatient (CLI) | payer OTHER, BC, SELFPAY ==
[2022-09-02 08:20] LABS: Basophils Absolute Auto 0.03 K/mm3 (0.00-0.10); Basophils Percent Auto 0.7 % (0.0-1.0); Eosinophils Absolute Auto 0.05 K/mm3 (0.02-0.50); Eosinophils Percent Auto 1.2 % (1.0-6.0); Hematocrit 35.3 % (35.0-49.0); Immature Granulocyte Absolute 0.03 K/mm3 (0.00-0.00); Immature Granulocyte Percent A 0.7 % (0.0-0.0); Lymphocytes Percent Auto 19.3 % (18.0-42.0); Mean Corpuscular HGB Conc 31.2 g/dL (32.0-36.0); Mean Corpuscular Hemoglobin 28.8 pg (27.0-31.0); Mean Corpuscular Volume 92.4 fL (78.0-102.0); Mean Platelet Volume 8.9 fl (9.2-11.8); Monocytes Absolute Auto 0.42 K/mm3 (0.10-0.90); Monocytes Percent Auto 10.1 % (2.0-11.0); Neutrophils Absolute Auto 2.8 K/mm3 (1.7-7.2); Platelet Count Result 307 K/mm3 (150-420); Red Blood Count 3.82 M/mm3 (4.20-5.40); Red Cell Distribution Width 15.3 % (11.6-14.4); White Blood Count 4.2 K/mm3 (4.8-10.8)
[2022-09-02 08:52] LABS: Alanine Aminotransferase 19 U/L (14-59); Aspartate Amino Transferase 25 U/L (15-37)
== END 2022-09-02 08:01 | disposition home or self-care (01) ==
LOC: CHSLAB 08:03
PROVIDERS: PCP Family Medicine
DX: Z79.899 Other long term (current) drug therapy (principal)
CPT/HCPCS: 36415; 84450; 84460; 85025

== ENCOUNTER 2022-12-13 14:30 | Outpatient (CLI) | payer MEDICARE, SELFPAY | END 2022-12-13 14:31 | disposition home or self-care (01) | PROVIDERS: PCP Family Medicine; Visit Provider Specialist | DX: D18.01 Hemangioma of skin and subcutaneous tissue (principal) | CPT/HCPCS: 88305 ==

== ENCOUNTER 2022-12-15 08:04 | Outpatient (CLI) | payer MEDICARE, SELFPAY ==
--- NOTE | ~2022-12-15 | DEXA_ITS ---
Bone Density Report Name: ÁLVARO OCASIO Age: 67 Sex: Female Ethnicity: White Date of : 1955 Indication: postmenopausal; screening for osteoporosis; rheumatoid arthritis; Referring Provider: JOHNATHAN SEXTON Study: Bone densitometry was performed. Exam Date: December 15, 2022 Accession number: [id number] Bone Density: Region BMD T-score Z-score Classification AP Spine(L1-L4) 0.845 -1.8 -0.1 Osteopenia World Health Organization criteria for BMD impression classify patients as: Normal (T-score at or above -1.0), Osteopenia (T-score between -1.0 and -2.5), or Osteoporosis (T-score at or below -2.5). Clinical Information Provided by Patient: Has rheumatoid arthritis Has used the following medications: Fosamax (i.e. alendronate), Vitamin D, Calcium Patient maximum height was 65 Menopause Age: 52 No regular weight bearing exercise Drinks caffeinated beverages Onset of menses at age 19 Number of children 0 Impression: The patient has low bone mass, based on the Total Spine T-score. Discussion: BONE DENSITY IS LOW AT ONE OR MORE SKELETAL SITES. This patient's lowest T-score is low at one or more skeletal sites. It meets the World Health Organization's (WHO) criteria for ?low bone mass? (T-score between -1.0 and -2.5). The patient's 10-year risk of fracture as calculated by FRAX is less than the threshold where pharmacological therapy is recommended by the National Osteoporosis Foundation (NOF). However, all treatment decisions require clinical judgment and consideration of individual patient factors, including patient preferences, comorbidities, previous drug use, risk factors not captured in the FRAX model (e.g., frailty, falls, vitamin D deficiency, increased bone turnover, interval significant decline in bone density) and possible under or overestimation of fracture risk by FRAX. The patient should follow a healthful lifestyle (good nutrition with adequate calcium and vitamin D, and appropriate weight-bearing exercise). Follow-Up: Consider repeating this study in 2 to 3 years to reassess this patient's status, or sooner if there is some new clinical indication. Reported by: Dr. Rommel Wild on 12/15/2022 8:27:00 AM. Reviewed, dictated and finalized at location [facility]
== END 2022-12-15 08:05 | disposition home or self-care (01) ==
LOC: CHSIMG 08:06
PROVIDERS: PCP Family Medicine; Visit Provider Nurse Practitioner Family
DX: Z78.0 Asymptomatic menopausal state (principal); M85.88 Other specified disorders of bone density and structure, other site
CPT/HCPCS: 77080

== ENCOUNTER 2023-01-05 08:20 | Outpatient (CLI) | payer MEDICARE, SELFPAY ==
[2023-01-05 08:34] LABS: Basophils Absolute Auto 0.02 K/mm3 (0.00-0.10); Basophils Percent Auto 0.4 % (0.0-1.0); Eosinophils Absolute Auto 0.08 K/mm3 (0.02-0.50); Eosinophils Percent Auto 1.7 % (1.0-6.0); Hematocrit 35.6 % (35.0-42.0); Hemoglobin 11.4 g/dL (11.7-13.8); Immature Granulocyte Absolute 0.03 K/mm3 (0.00-0.00); Immature Granulocyte Percent A 0.6 % (0.0-0.0); Lymphocytes Absolute Auto 0.79 K/mm3 (1.10-4.50); Lymphocytes Percent Auto 16.9 % (18.0-42.0); Mean Corpuscular Hemoglobin 30.2 pg (27.0-31.0); Mean Corpuscular Volume 94.4 fL (78.0-102.0); Mean Platelet Volume 9.1 fl (9.2-11.8); Monocytes Absolute Auto 0.46 K/mm3 (0.10-0.90); Monocytes Percent Auto 9.9 % (2.0-11.0); Neutrophils Absolute Auto 3.3 K/mm3 (1.7-7.2); Neutrophils Percent Auto 70.5 % (50.0-70.0); Platelet Count Result 308 K/mm3 (150-420); Red Blood Count 3.77 M/mm3 (4.20-5.40); Red Cell Distribution Width 13.9 % (11.6-14.4); White Blood Count 4.7 K/mm3 (4.8-10.8)
[2023-01-05 09:19] LABS: Alanine Aminotransferase 20 U/L (14-59); Aspartate Amino Transferase 32 U/L (15-37); Cholesterol 161 mg/dL (0-200); Estimated Glomerular Filt Rate > 60; HDL Direct 86 mg/dL (40-60); LDL Cholesterol Calculated 67 mg/dL (<130); Triglycerides 38 mg/dL (0-150)
== END 2023-01-05 08:21 | disposition home or self-care (01) ==
PROVIDERS: PCP Nurse Practitioner Family
DX: Z13.820 Encounter for screening for osteoporosis (principal); M06.9 Rheumatoid arthritis, unspecified; I10 Essential (primary) hypertension; Z79.899 Other long term (current) drug therapy
CPT/HCPCS: 36415; 80061; 82565; 84450; 84460; 85025

== ENCOUNTER 2023-03-02 07:52 | Outpatient (CLI) | payer MEDICARE, SELFPAY ==
--- NOTE | ~2023-03-02 | MM_ITS ---
EXAMINATION: MM scrn macario implant BI w kosta HISTORY: Screening mammogram TECHNIQUE: Craniocaudal and mediolateral oblique 3-D tomosynthesis images with implant displacement a nd synthetic 2-D images were generated. Craniocaudal and mediolateral oblique views of the breasts wi thout implant displacement were obtained using full field digital mammography. CAD analysis was submi tted and interpreted. COMPARISON: 10/05/2018, 06/08/2015, 12/16/2010 BREAST PARENCHYMAL COMPOSITION: The breasts are heterogeneously dense, which may obscure small masses . FINDINGS: There is no evidence of suspicious mass, calcification, or architectural distortion to sugg est malignancy in either breast. There has been no suspicious interval change. IMPRESSION: 1. No mammographic evidence of malignancy. 2. Recommend routine screening mammography in one year. BI-RADS Category 1: Negative Reviewed, dictated and finalized at location A. L[facility] FUELER
== END 2023-03-02 07:53 | disposition home or self-care (01) ==
PROVIDERS: PCP Nurse Practitioner Family; Visit Provider Obstetrics & Gynecology
DX: Z12.31 Encounter for screening mammogram for malignant neoplasm of breast (principal)
CPT/HCPCS: 77063; 77067

== ENCOUNTER 2023-03-29 08:22 | Outpatient (CLI) | payer MEDICARE, SELFPAY ==
--- NOTE | ~2023-03-29 | CT_ITS ---
CT of the Abdomen and Pelvis: Indication: Abdominal pain Technique: 2.5 mm axial scans were obtained through the abdomen and pelvis following intravenous adm inistration of 100 cc of Omnipaque 350. Dose reduction technique was used on this scan by utilizing a utomated exposure control and iterative reconstruction technique. The dose-length product (DLP) was 2 88.03 mGy-cm. Findings: Scans through the lung bases are unremarkable. There are small bilateral renal cysts, and probable small hepatic cysts. The spleen, pancreas, gallbl adder, and adrenal glands are within normal limits. No evidence of aortic aneurysm. No lymphadenopa thy. There is small amount of peripancreatic/perigastric fluid. No bowel obstruction or bowel wall thickening. There is no evidence to suggest acute appendicitis. Images through the pelvis are degraded by streak artifact from bilateral hip arthroplasty. Urinary bl adder grossly unremarkable. No definite pelvic mass seen. No pelvic ascites seen. Impression: Small amount of fluid in the peripancreatic/epigastric region, nonspecific. Pancreatitis is a potenti al consideration. Reviewed, dictated and finalized at [facility]. [employer] Impression: Small amount of fluid in the peripancreatic/epigastric region, nonspecific. Vega creatitis is a potential consideration.
[2023-03-29 08:51] LABS: Estimated Glomerular Filt Rate > 60
== END 2023-03-29 08:23 | disposition home or self-care (01) ==
PROVIDERS: PCP Nurse Practitioner Family; Visit Provider Nurse Practitioner
DX: R10.31 Right lower quadrant pain (principal)
CPT/HCPCS: 74177; Q9967

== ENCOUNTER 2023-04-13 07:16 | Outpatient (CLI) | payer MEDICARE, SELFPAY ==
--- NOTE | ~2023-04-13 | MR_ITS ---
EXAMINATION: MR MRCP wo/w con/w 3D wo ind DATE: 04/13/2023 09:04 INDICATION: Acute pancreatitis without necrosis. Low abdominal pain. TECHNIQUE: Magnetic resonance imaging (MRI) of the abdomen was performed without and with 11 mL Multi Ramona intravenous contrast. Sequences included coronal T2-weighted FS FSE, coronal T2-weighted FSE, a xial T1-weighted LAVA, coronal FS FIESTA, axial dual-echo T1-weighted SPGR, coronal lava-FLEX, sagitt al T2-weighted FSE, axial T2-weighted FSE, and axial DWI. Thick-slab T2-weighted FSE images were obta ined for magnetic resonance cholangiopancreatography (MRCP). Maximum intensity projection 3-D reconst ructions of the volumetric data were created by the technologist. Postcontrast sequences included cor onal LAVA-flex and time course of axial T1-weighted LAVA. COMPARISON: Abdomen MRI 07/27/2019, CT abdomen and pelvis 03/29/2023 FINDINGS: ABDOMEN MRI: Breast implants are noted. There are cysts in the liver measuring up to 4 mm. The gallbl adder, spleen, pancreas, and adrenal glands are normal. There are cysts in the kidneys measuring up t o 4.5 cm on the left. There are no pathologically enlarged lymph nodes. There is no free intraperiton eal fluid. There are no dilated loops of bowel. ABDOMEN MRCP: The common duct is normal and measures 5 mm. No choledocholithiasis. IMPRESSION: 1. No etiology for the patient's symptoms. 2. Normal pancreas. Reviewed, dictated and finalized at location A. [employer] DES[employer]
== END 2023-04-13 07:17 | disposition home or self-care (01) ==
PROVIDERS: PCP Nurse Practitioner Family; Visit Provider Nurse Practitioner
DX: R11.0 Nausea (principal); R63.0 Anorexia; R10.9 Unspecified abdominal pain; K85.90 Acute pancreatitis without necrosis or infection, unspecified
CPT/HCPCS: 74183; 76376; A9577

== ENCOUNTER 2023-05-18 10:14 | Outpatient (CLI) | payer MEDICARE, SELFPAY ==
[2023-05-18 10:43] LABS: Basophils Absolute Auto 0.03 K/mm3 (0.00-0.10); Basophils Percent Auto 0.7 % (0.0-1.0); Eosinophils Absolute Auto 0.06 K/mm3 (0.02-0.50); Eosinophils Percent Auto 1.4 % (1.0-6.0); Hematocrit 38.4 % (35.0-42.0); Hemoglobin 11.8 g/dL (11.7-13.8); Immature Granulocyte Absolute 0.03 K/mm3 (0.00-0.00); Immature Granulocyte Percent A 0.7 % (0.0-0.0); Lymphocytes Absolute Auto 1.23 K/mm3 (1.10-4.50); Mean Corpuscular HGB Conc 30.7 g/dL (32.0-36.0); Mean Corpuscular Hemoglobin 28.6 pg (27.0-31.0); Mean Platelet Volume 8.6 fl (9.2-11.8); Monocytes Absolute Auto 0.44 K/mm3 (0.10-0.90); Neutrophils Absolute Auto 2.6 K/mm3 (1.7-7.2); Neutrophils Percent Auto 59.2 % (50.0-70.0); Platelet Count Result 358 K/mm3 (150-420); Red Blood Count 4.13 M/mm3 (4.20-5.40); Red Cell Distribution Width 15.1 % (11.6-14.4); White Blood Count 4.4 K/mm3 (4.8-10.8)
[2023-05-18 10:46] LABS: Appearance Urine Clear (Clear); Bilirubin Urine Negative (Negative); Blood Urine Negative (Negative); Color Urine Light Yellow (Yellow); Glucose Urine UA Negative (Negative); Ketones Urine Negative (Negative); Leukocyte Esterase Ur Negative (Negative); Nitrate Urine Negative (Negative); Protein Urine Negative (Negative); Urobilinogen Urine 0.2 mg/dL (0.2-1.0)
[2023-05-18 11:09] LABS: Add Urine Microscopic? NO
[2023-05-18 11:16] LABS: Alanine Aminotransferase 24 U/L (14-59); Albumin Level 4.5 g/dL (3.4-5.0); Alkaline Phosphatase 109 U/L (46-116); Anion Gap 9 mmol/L (8-16); Aspartate Amino Transferase 21 U/L (15-37); Bilirubin,Total 0.6 mg/dL (0.00-1.00); Blood Urea Nitrogen 12 mg/dL (7-18); Calcium 9.2 mg/dL (8.5-10.1); Carbon Dioxide 30 mmol/L (21-32); Chloride 99 mmol/L (98-108); Estimated Glomerular Filt Rate > 60; Glucose 89 mg/dL (70-99); Osmolality Calculated 284 mOsm/kg (285-295); Potassium 4.6 mmol/L (3.5-5.1); Sodium 138 mmol/L (136-145); Total Protein 7.6 g/dL (6.4-8.2)
[2023-05-18 11:18] LABS: CRP < 0.5 mg/dL (0.0-0.9)
[2023-05-18 11:44] LABS: Erythrocyte Sedimentation Rate 12 mm/hr (0-20)
== END 2023-05-18 10:15 | disposition home or self-care (01) ==
PROVIDERS: PCP Nurse Practitioner Family; Visit Provider Nurse Practitioner Family
DX: R10.31 Right lower quadrant pain (principal); R35.0 Frequency of micturition; Z79.899 Other long term (current) drug therapy
CPT/HCPCS: 36415; 80053; 81003; 85025; 85652; 86140; 87086; 87088

== ENCOUNTER 2023-05-20 07:20 | Outpatient (CLI) | payer MEDICARE, SELFPAY ==
[2023-05-23 18:36] LABS: Lactoferrin, Stool Negative (Negative)
[2023-05-27 00:41] LABS: Calprotectin, Stool 66 mcg/g
== END 2023-05-20 07:21 | disposition home or self-care (01) ==
LOC: CHSLAB 07:21
PROVIDERS: PCP Nurse Practitioner Family; Visit Provider Nurse Practitioner Family
DX: R10.9 Unspecified abdominal pain (principal)
CPT/HCPCS: 83630; 83993

== ENCOUNTER 2023-06-12 09:36 | Outpatient (CLI) | payer MEDICARE, SELFPAY ==
--- NOTE | ~2023-06-12 | NM_ITS ---
EXAMINATION: NM hepatobiliary w pharm DATE: 06/12/2023 14:07 INDICATION: Right upper quadrant abdominal pain radiating to the back. COMPARISON: MRCP 04/13/23 TECHNIQUE: 5.56 mCi Tc-99m mebrofenin (Choletec) was administered intravenously. Scintigraphic image s of the abdomen were obtained for one hour. Then, 1.1 mcg sincalide (Kinevac) IV was administered, a nd imaging was continued for 30 minutes. FINDINGS: There is normal clearance of radiotracer from the blood pool. There is homogeneous tracer u ptake by the liver. Activity progresses to the bowel and gallbladder. Gallbladder ejection fraction (GBEF) was 88%. Note that most patients with gallbladder dysfunction have GBEF < 35%, which overlaps with the broad normal range of 10-90%. IMPRESSION: 1. Normal hepatobiliary scintigraphy. Reviewed, dictated and finalized at location A. N PIPE VOICER
== END 2023-06-12 09:37 | disposition home or self-care (01) ==
LOC: CHSIMG 09:40
PROVIDERS: PCP Nurse Practitioner Family; Visit Provider Nurse Practitioner
DX: R10.11 Right upper quadrant pain (principal)
CPT/HCPCS: 78227; A9537; J2805

== ENCOUNTER 2023-06-26 09:02 | Outpatient (CLI) | payer MEDICARE, SELFPAY ==
--- NOTE | 2023-06-26 09:09 | ECHO_ITS ---
Patient Info Name: Qing Mcnair Age: 67 years : 1955 Gender: Female Ht: 66 in Wt: 125 lbs BSA: 1.62 m2 HR: 65 bpm BP: 154 / 74 mmHg Heart Rhythm: Sinus Rhythm Technical Quality: Good Exam Date: 06/26/2023 9:18 AM Exam Location: Echo Lab Patient Status: Outpatient Admit Date: 06/26/2023 Staff Ordering Physician: Jose Alberto Jessica DO Proofer Apprentice: Barb Salas RDCS Attending Provider: Jose Alberto Jessica DO Referring Physician: Jaskaran YADAV; Exam Type: CA echo doppler color flow Study Info Indications - other forms dyspnea Complete two-dimensional, color flow and Doppler transthoracic echocardiogram is performed. Summary 1. Complete two-dimensional, color flow and Doppler transthoracic echocardiogram is performed. 2. Left ventricular chamber dimension is normal. 3. Left ventricular systolic function is normal, estimated at 60-65%. 4. There is mild concentric increased left ventricular wall thickness. 5. The left ventricular diastolic function is normal. 6. E/e' 8 is minimally elevated. 7. There is mild aortic valve sclerosis. 8. There is mild mitral valve regurgitation. 9. There is mild tricuspid valve regurgitation. 10. No pulmonary hypertension, estimated pulmonary arterial systolic pressure is 27 mmHg. Left Ventricle E/e' 8 is minimally elevated. Left ventricular chamber dimension is normal. Left ventricular systolic function is normal, estimated at 60-65%. There is mild concentric increased left ventricular wall thickness. The left ventricular diastolic function is normal. Right Ventricle Right ventricular systolic function is normal and with normal TAPSE 2.9 cm. Right ventricular chamber dimension is normal. Left Atria Left atrial chamber dimension is normal. Right Atria Right atrial chamber dimension is normal. Aortic Valve The aortic valve is trileaflet. There is mild aortic valve sclerosis. There is no aortic valve stenosis. There is no aortic valve regurgitation. Pulmonic Valve There is no pulmonic regurgitation. Mitral Valve There is no mitral valve stenosis. There is mild mitral valve regurgitation. Tricuspid Valve There is mild tricuspid valve regurgitation. No pulmonary hypertension, estimated pulmonary arterial systolic pressure is 27 mmHg. Pericardium/Pleural There is no pericardial effusion. Inferior Vena Cava Normal inferior vena cava with >50% collapse upon inspiration consistent with normal right atrial pressure, 5 mmHg. Aorta The aortic root size at the sinus of Valsalva is normal. Left Ventricular Outflow Tract Name Value Normal LVOT 2D LVOT Diameter 1.9 cm LVOT Doppler LVOT Peak Velocity 95 cm/s LVOT Peak Gradient 3 mmHg LVOT Mean Gradient 2 mmHg LVOT VTI 31 cm LVOT VTI/AV VTI Ratio 1.0 LVOT Stroke Volume 91 ml Pulmonic Valve Name Value Normal RVOT Doppler
== END 2023-06-26 09:03 | disposition home or self-care (01) ==
LOC: CHSIMG 09:04
PROVIDERS: PCP Family Medicine; Visit Provider Internal Medicine Cardiovascular Disease
DX: R06.09 Other forms of dyspnea (principal); I08.3 Combined rheumatic disorders of mitral, aortic and tricuspid valves
CPT/HCPCS: 93306

== ENCOUNTER 2023-10-05 09:34 | Day surgery (SDC) | payer MEDICARE, SELFPAY ==
[2023-10-05] MEDS: LACTATED RINGERS 1,000 ML 150 ML IV CONT (11:07)
--- NOTE | 2023-10-05 11:09 | PM.HPGS ---
History of Present Illness History of Present Illness Consent: Risks, benefits, and alternatives have been discussed and questions answered. Patient agrees to proceed with procedure. Chief complaint: Right abdominal pain Narrative: Qing Mcnair is a 67 year old female presents for both colonoscopy and EGD. It is rights mid abdominal pain that has been present since fall. Patient was seen in the GI office in March of 2023 and colonoscopy in EGD were recommended. Patient states over the last 6-7 months pain is intensified. She has difficulty describing the pain rather states it is a pain. It may be somewhat worse after eating it is not related to bowel habits. Patient had somewhat diminished appetite. She has normal bowel habits with no bleeding. 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 Previous Gyne workup is unremarkable. Review of Systems Review of Systems: All systems reviewed & are unremarkable except as noted in HPI and below PMFSH Past Medical History Medical History Abdominal pain Arthrofibrosis of knee joint Colon cancer screening Decreased appetite Dysphagia GERD with esophagitis History of revision of total replacement of right knee joint (~06/2010) Hypertension Nausea Pancreatitis Rheumatoid arthritis RLQ abdominal pain RUQ pain Surgical History Surgical History History of left ankle joint replacement (~08/2015) History of left hip replacement (~02/2008) History of left knee replacement (~11/2000) History of left shoulder replacement (~06/2011) History of total replacement of right shoulder joint (~09/2003) History of total right hip replacement (~01/2008) History of total right knee replacement (~04/2000) Family History Family History Other Cerebrovascular accident Diabetes mellitus Hypertension Social History Social History Smoking status: Former smoker Alcohol intake: never Substance use: never Substance use type: does not use Do You Feel Safe in your Home?: Yes Lack of Transportation: No Lack of Food: Never True Current Housing: I Have Housing Concerned About Future Housing: No Difficulty Paying Gas/Electric Bills: No Difficulty Paying for Meds: No Currently Unemployed: No Education: Bachelor's Degree Difficulty w/ Childcare or Family Care: No Living arrangements: with family Occupation/Education: unemployed Meds Home Medications and Allergies Home Medications Medication Instructions Recorded Confirmed Type cholecalciferol (vitamin D3) 125 125 mcg PO DAILY 05/27/19 10/05/23 History mcg (5,000 unit) capsule (Dialyvite Vitamin D) upadacitinib 15 mg tablet,extended 15 mg PO DAILY 10/22/19 10/05/23 History release 24 hr (Rinvoq) lisinopril 20 mg tablet See Rx Instructions .Route 01/02/23 10/05/23 Rx .COMPLEX #90 tabs Allergies Allergy/AdvReac Type Severity Reaction Status Date / Time levofloxacin [Levaquin] Allergy Intermediate Unknown Verified 10/05/23 10:49 Penicillins Allergy Intermediate Unknown Verified 10/05/23 10:49 clindamycin AdvReac Severe Itching on Verified 10/05/23 10:49 scalp Cephalosporins AdvReac Mild Itching Verified 10/05/23 10:49 Mushroom AdvReac Intermediate ARTHRITIS Uncoded 10/05/23 10:49 SWELLS UP. Exam Narrative: Physical exam reveals patient to be alert. Vital signs stable. HEENT exam is unremarkable. Patient is anicteric. Lungs are clear to auscultation and percussion. Heart is without murmur extra sounds. Abdomen bowel sounds are present soft nontender with no organomegaly. Digital external rectal exam normal. Assessment and Plan Assessment and plan (1) RUQ pain: Code(s): R10.11 - Right upper quadrant pain Status: Acute Asse
[2023-10-05 11:18] VITALS: BP 125/77; PULSE 96; RESP 20; TEMP 37.6; O2SAT 99; BMI 19.4
--- NOTE | 2023-10-05 11:57 | WPDANESEPPF ---
Anes - Initial Pre Proc Eval Procedure: Operation Date: 10/05/23 11:30 Proposed Procedures p Esophagogastroduodenoscopy - Mervin Birmingham MD s Diagnostic Colonoscopy - Mervin Birmingham MD Date/Time: 10/05/23 11:57 Surgeon: Mervin Birmingham MD Pre Op Diagnosis: Right abdominal pain Patient Data Age: 67 Gender: F Height: 1.65 m Weight: 52.9 kg Last Vital Signs Temp 37.6 C H 10/05/23 11:18 Pulse 96 10/05/23 11:18 Resp 20 10/05/23 11:18 BP 125/77 10/05/23 11:18 Pulse Ox 99 10/05/23 11:18 O2 Del Method Room Air 10/05/23 11:18 Allergies Allergy/AdvReac Type Severity Reaction Status Date / Time levofloxacin [Levaquin] Allergy Intermediate Unknown Verified 10/05/23 10:49 Penicillins Allergy Intermediate Unknown Verified 10/05/23 10:49 clindamycin AdvReac Severe Itching on Verified 10/05/23 10:49 scalp Cephalosporins AdvReac Mild Itching Verified 10/05/23 10:49 Mushroom AdvReac Intermediate ARTHRITIS Uncoded 10/05/23 10:49 SWELLS UP. Home Medications Medication Instructions Recorded Confirmed Type cholecalciferol (vitamin D3) 125 125 mcg PO DAILY 05/27/19 10/05/23 History mcg (5,000 unit) capsule (Dialyvite Vitamin D) upadacitinib 15 mg tablet,extended 15 mg PO DAILY 10/22/19 10/05/23 History release 24 hr (Rinvoq) lisinopril 20 mg tablet See Rx Instructions .Route 01/02/23 10/05/23 Rx .COMPLEX #90 tabs Patient hx anesthesia problems: none Family hx anesthesia problems: none Results Review: All pre-operative results and documents have been reviewed as part of the pre-operative evaluation. [facility] Past Medical History Medical History Abdominal pain Arthrofibrosis of knee joint Colon cancer screening Decreased appetite Dysphagia GERD with esophagitis History of revision of total replacement of right knee joint (~06/2010) Hypertension Nausea Pancreatitis Rheumatoid arthritis RLQ abdominal pain RUQ pain Surgical History Surgical History History of left ankle joint replacement (~08/2015) History of left hip replacement (~02/2008) History of left knee replacement (~11/2000) History of left shoulder replacement (~06/2011) History of total replacement of right shoulder joint (~09/2003) History of total right hip replacement (~01/2008) History of total right knee replacement (~04/2000) Family History Family History Other Cerebrovascular accident Diabetes mellitus Hypertension Social History Social History (Updated 10/05/23 @ 12:01 by Neal Ibrahim MD) Smoking status: Never smoker Alcohol intake: never Substance use: never Substance use type: does not use Do You Feel Safe in your Home?: Yes Lack of Transportation: No Lack of Food: Never True Current Housing: I Have Housing Concerned About Future Housing: No Difficulty Paying Gas/Electric Bills: No Difficulty Paying for Meds: No Currently Unemployed: No Education: Bachelor's Degree Difficulty w/ Childcare or Family Care: No Living arrangements: with family Occupation/Education: unemployed Anes - Eval Final PreProcedure Day of Procedure 10/05/23 11:57 Patient weight: normal Heart: regular rate and rhythm Lungs: clear to auscultation Airway: Mallampati scale class II and special considerations poor extension Neurological: alert and oriented Last oral intake: >/= 8 hours ASA classification: III Emergent: no Anesthetic plan: proceed Anesthesia type and monitoring: general GIVS and standard monitoring Results Review: All pre-operative results and documents have been reviewed as part of the pre-operative evaluation. Informed Consent: The patient's anesthetic plan and its attendant risks and benefits were discussed with the patient/family/POA. Questions were solicited and answers provided to t
[2023-10-05 13:36] VITALS: BP 139/74; PULSE 75; RESP 15; O2SAT 100
[2023-10-05 13:46] VITALS: BP 124/78; PULSE 74; RESP 16; O2SAT 100
[2023-10-05 13:56] VITALS: BP 152/79; PULSE 66; RESP 16; O2SAT 99
== END 2023-10-05 14:05 | disposition home or self-care (01) ==
PROVIDERS: PCP Nurse Practitioner Family; Visit Provider Internal Medicine Gastroenterology
PROC: 0DJ08ZZ Inspection of Upper Intestinal Tract, Via Natural or Artificial Opening Endoscopic (ICD-10-PCS; CPT 43235; principal; 2023-10-05 11:30)
PROC: 0DJD8ZZ Inspection of Lower Intestinal Tract, Via Natural or Artificial Opening Endoscopic (ICD-10-PCS; CPT 45378; 2023-10-05 11:30)
DX: Z12.11 Encounter for screening for malignant neoplasm of colon (principal); R10.11 Right upper quadrant pain; D12.5 Benign neoplasm of sigmoid colon; K64.8 Other hemorrhoids
CPT/HCPCS: 45385; 43239

== ENCOUNTER 2023-10-06 10:58 | Outpatient (NON) | payer MEDICARE, SELFPAY | END 2023-10-06 10:59 | disposition home or self-care (01) | LOC: ANHLAB 10:59 | PROVIDERS: PCP Nurse Practitioner Family; Visit Provider Internal Medicine Gastroenterology | DX: Z12.11 Encounter for screening for malignant neoplasm of colon (principal) | CPT/HCPCS: 88305 ==

== ENCOUNTER 2023-10-10 09:48 | Outpatient (CLI) | payer MEDICARE, SELFPAY ==
--- NOTE | ~2023-10-10 | XR_ITS ---
EXAMINATION: XR ribs RT 2V DATE: 10/10/2023 10:05 INDICATION: Right upper quadrant abdominal pain post fall couple months prior. TECHNIQUE: 3 views of the right ribs were obtained. COMPARISON: Chest radiograph dated FINDINGS: No rib fractures identified. There are multiple scattered small calcified pulmonary nodules in the ri ght hemithorax consistent with old granulomatous disease. Cluster of renal stones measuring up to 7 m m project over the upper pole the right kidney. Right glenohumeral hemiarthroplasty with remodeling o f the glenoid. Moderate thoracic spondylosis. IMPRESSION: 1. No rib fracture or acute cardiopulmonary disease. 2. Right nephrolithiasis. Reviewed, dictated and finalized at location B.
== END 2023-10-10 09:49 | disposition home or self-care (01) ==
LOC: CHSIMG 09:50
PROVIDERS: PCP Nurse Practitioner Family; Visit Provider Nurse Practitioner Family
DX: R10.11 Right upper quadrant pain (principal); N20.0 Calculus of kidney
CPT/HCPCS: 71100

== ENCOUNTER 2023-10-12 07:52 | Outpatient (CLI) | payer MEDICARE, SELFPAY ==
--- NOTE | ~2023-10-12 | US_ITS ---
EXAMINATION: US soft tissue abdomen DATE: 10/12/2023 08:15 INDICATION: Chronic right lower quadrant abdominal pain. TECHNIQUE: Multiple grayscale and Doppler ultrasound images of the abdomen were obtained. COMPARISON: CT abdomen and pelvis 03/29/2023 FINDINGS: There is no abnormal wall hernia or mass in the patient's area of concern. IMPRESSION: 1. No abdominal wall hernia or mass in the patient's area of concern. Reviewed, dictated and finalized at location A.
[2023-10-12 08:41] LABS: Appearance Urine Clear (Clear); Bilirubin Urine Negative (Negative); Blood Urine Negative (Negative); Color Urine Light Yellow (Yellow); Glucose Urine UA Negative (Negative); Ketones Urine Negative (Negative); Leukocyte Esterase Ur Negative (Negative); Nitrate Urine Negative (Negative); Protein Urine Negative (Negative); Urobilinogen Urine 0.2 mg/dL (0.2-1.0)
[2023-10-12 08:43] LABS: Add Urine Microscopic? NO
== END 2023-10-12 07:53 | disposition home or self-care (01) ==
PROVIDERS: PCP Family Medicine; Visit Provider Nurse Practitioner Family
DX: M54.9 Dorsalgia, unspecified (principal); R35.0 Frequency of micturition
CPT/HCPCS: 76705; 81003; 87086

== ENCOUNTER 2023-11-01 12:59 | Outpatient (CLI) | payer MEDICARE, SELFPAY ==
[2023-11-01 13:19] LABS: Hematocrit 36.1 % (35.0-42.0); Hemoglobin 11.7 g/dL (11.7-13.8); Mean Corpuscular HGB Conc 32.4 g/dL (32-36); Mean Corpuscular Hemoglobin 32.4 pg (27.0-31.0); Mean Platelet Volume 9.4 fl (9.2-11.8); Platelet Count Result 297 K/mm3 (150-420); Red Blood Count 3.61 M/mm3 (4.20-5.40); Red Cell Distribution Width 16.1 % (11.6-14.4); White Blood Count 3.5 K/mm3 (4.8-10.8)
[2023-11-01 13:32] LABS: Band Neutrophils Percent 0 % (0-6); Basophils Absolute Manual 0.03 K/mm3 (0-0.1); Basophils Percent Manual 1 % (0-1); Eosinophils Absolute Manual 0.07 K/mm3 (0.02-0.50); Eosinophils Percent Manual 2 % (1-6); Lymphocytes Absolute Manual 0.87 K/mm3 (1.1-4.5); Lymphocytes Percent Manual 25 % (18-44); Monocytes Absolute Manual 0.35 K/mm3 (0.1-0.90); Monocytes Percent Manual 10 % (3-9); Neutrophils Absolute Manual 2.13 K/mm3 (1.7-7.2); Neutrophils Percent Manual 61 % (46-73); Total Cells Counted 100
[2023-11-01 13:33] LABS: Myelocytes Percent 1 %; Platelet Estimate Adequate (Adequate)
[2023-11-01 13:58] LABS: Alanine Aminotransferase 50 U/L (14-59); Aspartate Amino Transferase 40 U/L (15-37)
== END 2023-11-01 13:00 | disposition home or self-care (01) ==
LOC: CHSLAB 13:03
PROVIDERS: PCP Family Medicine
DX: Z91.89 Other specified personal risk factors, not elsewhere classified (principal)
CPT/HCPCS: 36415; 84450; 84460; 85025

== ENCOUNTER 2024-02-23 07:47 | Outpatient (CLI) | payer MEDICARE, SELFPAY ==
[2024-02-23 08:14] LABS: Hemoglobin 11.5 g/dL (11.7-13.8); Mean Corpuscular HGB Conc 32.9 g/dL (32-36); Mean Corpuscular Hemoglobin 32.5 pg (27.0-31.0); Mean Corpuscular Volume 98.9 fL (78.0-102.0); Mean Platelet Volume 8.4 fl (9.2-11.8); Platelet Count Result 289 K/mm3 (150-420); Red Blood Count 3.54 M/mm3 (4.20-5.40); Red Cell Distribution Width 13.5 % (11.6-14.4); White Blood Count 3.8 K/mm3 (4.8-10.8)
[2024-02-23 09:14] LABS: Band Neutrophils Percent 0 % (0-6); Basophils Absolute Manual 0.03 K/mm3 (0-0.1); Basophils Percent Manual 1 % (0-1); Eosinophils Percent Manual 0 % (1-6); Lymphocytes Absolute Manual 0.95 K/mm3 (1.1-4.5); Lymphocytes Percent Manual 25 % (18-44); Monocytes Absolute Manual 0.34 K/mm3 (0.1-0.90); Monocytes Percent Manual 9 % (3-9); Neutrophils Absolute Manual 2.47 K/mm3 (1.7-7.2); Neutrophils Percent Manual 65 % (46-73); Platelet Estimate Adequate (Adequate); Total Cells Counted 100
[2024-02-23 09:29] LABS: Alanine Aminotransferase 26 U/L (14-59)
[2024-02-23 09:42] LABS: Aspartate Amino Transferase 27 U/L (15-37)
== END 2024-02-23 07:48 | disposition home or self-care (01) ==
LOC: CHSLAB 07:50
PROVIDERS: PCP Family Medicine
DX: Z79.899 Other long term (current) drug therapy (principal)
CPT/HCPCS: 36415; 84450; 84460; 85025

== ENCOUNTER 2024-10-23 08:49 | Outpatient (CLI) | payer MEDICARE, SELFPAY ==
--- OUTSIDE RECORDS SUMMARY | 2024-10-23 08:59 | XMS_ITS | Data Portability ---
Author Organization [facility], [address] Neurology ([place]) Address [address] [place] [address] Care Team Providers Care Welt Sewer Name Role Phone FOZIA GRAMAJO Primary Care Provider Assessment Encounter Date Assessment Date Assessment LastModified by Organization Details LastModified Time 10/13/2023 10/13/2023 1. Seropositive erosive rheumatoid arthritis. She has remained stable on the Rinvoq 15 mg once daily monotherapy. ACR Covid guidelines regarding the KELLY inhibitor and the oral surveillance data were explained to the patient with her understanding. She will follow up blood tests regarding high-risk drug use. 2. Status post shingles. I did suggest she discuss with her primary care about the appropriate timing of getting the Shingrix vaccine and we discussed about the incidence of shingles with KELLY inhibitors. 3. Follow up in 4 months. I personally spent a total of 20 minutes on the patient on this date of service including both gizm-ql-vwjn and qxa-sfiu-ar-face time excluding any separately reportable services. [facility] [email or web address] Not available 10/13/2023 10:50:38 02/09/2024 02/09/2024 Seropositive erosive rheumatoid arthritis. We are going to maintain on the Rinvoq 15 mg once daily. Perioperative management of the Rinvoq was explained to the patient for upcoming surgeries with her understanding. Will follow-up blood tests regarding high-risk drug use. ACR Covid guidelines regarding the DMARD use were explained to the patient with her understanding including the oral surveillance data. Would recommend she is up to date with all vaccines including upcoming flu vaccine. Follow up in 4 to 5 months. I personally spent a total of 15 minutes on the patient on this date of service including both iejz-md-cpxb and cqq-koqn-bp-face time excluding any separately reportable services. [facility] [email or web address] Not available 02/10/2024 04:44:22 06/14/2024 06/14/2024 SUBJECTIVE: This is a 68-year-old female with a history of seropositive rheumatoid arthritis, here for a followup. She has been noticing more achiness in various aspects of her body, the worse being her right low back going into her mid-leg. There was no trauma. She has had no bladder or bowel incontinence. It is variable in its nature but seems to be worse with changes in weather, which can also affect her repaired left ankle and her hands. She still has problems with mobility of her knee which has been replaced. No swelling. She has had no complications with the Rinvoq. No infectious complications. No cardiovascular events, MACE events, or embolic events. She just feels overall that maybe pain control should be better at this time. Otherwise no constitutional symptoms, no fever, and no change in her medicine. OBJECTIVE: CONST: No acute distress. EYES: No icterus. No proptosis or periorbital edema. Conjunctiva and sclera are clear. ENT: Mucous membranes moist. No aphthous ulcerations. No cervical lymphadenopathy. No malar erythema. No patchy alopecia. RESP: Breathing appears normal. No use of accessory muscles. Clear to auscultation. CV: Regular rate and rhythm. GI: Abdomen non-distended MSK: Hands: She has multiple deformities and subluxations of her MP joints. No synovitis in the DIP, PIP, or MP joints. 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 Elbows: Limited range of motion. Shoulders: Decreased abduction bilaterally. Positive impingement maneuvers. Hips: Normal flexion and extension, internal and external rotation. Straight leg raise normal. Knees: The right knee shows limited flexion at this point. No effusion. Ankles, MTP: Left ankle is essentially fused. Axial: She has some right paralumbar discomfort. SKIN: No jaundice. No rashes or nodules or vasculitic lesions. PSYCH: Appropriate mood and affect. NEURO: No speech difficulty. Hand strength normal. Proximal muscle strength is 5/5 in a symmetric fashion. Gait normal. Reviewed pertinent diagnostic tests, lab work, and imaging. These were reviewed with the patient. ASSESSMENT AND PLAN: 1. Right leg pain. It seems to be consistent with lumbar radiculopathy. No signs of cord impingement. I am going to follow up with an x-ray today, but she would be willing to be evaluated by our Pain Management Team. Pending the x-ray, we will have her evaluated by Dr. Chávez further. 2. Rheumatoid arthritis. Overall, I do believe her rheumatoid is well controlled. Unfortunately, I do believe the majority of her pain is from chronic deformities and degenerative changes as opposed to active rheumatoid. We will follow up blood tests regarding high-risk drug use today, including a sed rate and CRP. ACR Covid Guidelines regarding the KELLY inhibitor and the oral surveillance data were explained to the patient with her understanding. 3. Follow up in 4 months. I personally spent a total of 20 minutes on the patient on this date of service including both mlhn-ex-jiie and cct-youc-ej-face time excluding any separately reportable services. [email or web address] Not available 06/14/2024 11:13:49 07/25/2024 07/25/2024 IMPRESSION: 1. 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 I do not think a gallbladder or a kidney stone is the cause. 2. Lumbar back pain radiating to the gluteal area and to the back of the thigh, could well be an SI joint dysfunction as the plain x-rays have shown L5-S1 degenerative disc disease and narrowing and foraminal narrowing. MANAGEMENT PLAN: 1. I did explain to her that the only thing we can offer for the postherpetic neuralgic pain is medications. I have written the list; Lyrica, gabapentin, Trileptal, and amitriptyline. If she does wish to, we can try out one after the other, but there is no guarantee it will help and, unfortunately, they can cause side effects as well, which she fully understood. 2. From the back point of view, she has not had any therapy. We need an MRI scan and I would suggest to her to try out the physical therapy first and so that we can get approval from the insurance if therapy alone does not help. 3. We will defer any medication option at this stage until she decides. 4. She would like to wait even for the therapy. She will be in touch with us if she wants to consider a physical therapy slip first for an MRI scan of the lumbar spine done or if she does wish to have medication options, such as Lyrica or gabapentin for the postherpetic neuralgic pain. [email or web address] Not available 07/25/2024 11:33:09 10/04/2024 10/04/2024 HISTORY OF PRESENT ILLNESS: Qnig Mcnair comes into clinic today with history of seropositive erosive rheumatoid arthritis with multiple deformities here for routine follow-up. She is maintained on Rinvoq 15 mg once daily monotherapy which she has tolerated without any reported complications. No febrile illnesses. No cardiovascular events, MACE events, or embolic events. She has scheduled follow-up with [facility] regarding her left ankle arthrodesis which has been giving her some issues recently. She said overall there has been no change on the Rinvoq. No worsening of her peripheral joint pain or any new functional limitations. She was seen by our neurology department for the chronic low back pain. We also felt that her abdominal pain was like post-herpetic neuralgia and gave her some options, but she was concerned about potential side effects of the medication. PHYSICAL EXAMINATION: CONST: No acute distress. EYES: No icterus. No proptosis or periorbital edema. Conjunctiva and sclera are clear. ENT: Mucous membranes moist. No aphthous ulcerations. No cervical lymphadenopathy. No malar erythema. No patchy alopecia. RESP: Breathing appears normal. No use of accessory muscles. Clear to auscultation. CV: Regular rate and rhythm. GI: Abdomen non-distended MSK: Hands: There are multiple deformities and subluxation of her MP joints. No synovitis of the DIP or PIP joints. There is trace synovitis in the 2nd through 5th MP joints bilaterally. Wrists: No synovitis or tenosynovitis. Elbows: No synovitis, bursitis or epicondylitis. Shoulders: There is limited range of motion without effusion or synovitis. Hips: Normal flexion and extension, internal and external rotation. Straight leg raise normal. Knees: Right knee is in a fixed flexed position. Ankles, MTP: Left ankle is essentially fused. Her ankle has minimal range of motion at this time. Axial: Exam is normal. SKIN: No jaundice. No rashes or nodules or vasculitic lesions. PSYCH: Appropriate mood and affect. NEURO: No speech difficulty. Hand strength normal. Proximal muscle strength is 5/5 in a symmetric fashion. Gait antalgic. Reviewed pertinent diagnostic tests, lab work, and imaging. These were reviewed with the patient. ASSESSMENT AND PLAN: 1. Seropositive erosive rheumatoid arthritis. At this point, she has remained stable on the Rinvoq. She still has significant deformity from her years of rheumatoid arthritis, but we agreed to continue with the Rinvoq. We will follow up with blood tests regarding high-risk drug use. ACR COVID guidelines regarding the KELLY inhibitor and oral surveillance data were explained to the patient with understanding. 2. Possible post-herpetic neuralgia under the care of neurology. 3. Chronic lumbar back pain. 4. Status-post left ankle arthrodesis with complications. Scheduled to follow up with [facility]. 5. Follow up in 4-5 months. I personally spent a total of 20 minutes on the patient on this date of service including both ggpu-nm-lorh and air-fnzu-lz-face time excluding any separately reportable services. [email or web address] Not available 10/04/2024 10:27:43 Plan of Treatment Reminders Order Date Submit Date Provider Last Modified By Organization Details Last Modified Time Details Appointments Establish ed Patient 15.EST 2024 09:15A M Dr. Aristeo Kerr Not available Not available Not available Establish ed Patient 15.EST 2025 09:00A M Dr. Aristeo Kerr Not available Not available Not available Lab ALT (alanine aminotran sferase), serum or plasma 2024 025 [email or web address] [facility], [address] [place] [address], [id number], 10/22/2024 18:20:17 AST/SGOT (aspartat e aminotran sferase), serum or plasma 2024 025 [email or web address] [facility], [address] [place] [address], [id number], 10/22/2024 18:20:17 CBC w/ auto diff 2024 025 [email or web address] [facility], [address] [place] [address], [id number], 10/22/2024 18:20:17 ALT (alanine aminotran sferase), serum or plasma 2024 025 [place], [address] [place] [address], [id number], 06/14/2024 13:37:25 AST/SGOT (aspartat e aminotran sferase), serum or plasma 2024 025 [place] [facility], [address] [place] [address], [id number], 06/14/2024 13:37:21 CBC w/ auto diff 2024 025 [place] [facility], [address] [place] [address], [id number], 06/14/2024 12:58:33 ESR (erythroc yte sedimenta tion rate), blood 2024 025 [place] [facility], [address] [place] [address], [id number], 06/14/2024 13:15:20 C-reactiv e protein, quantitat shelly, serum or plasma 2024 025 [place] [facility], [address] [place] [address], [id number], 06/14/2024 13:37:23 ALT (alanine aminotran sferase), serum or plasma 2023 024 [email or web address] [facility], [address] [place] [address], [id number], 10/13/2023 10:16:20 CBC w/ auto diff 2023 024 [email or web address] [facility], [address] [place] [address], [id number], 10/13/2023 10:16:20 Referral None recorded. Procedures None recorded. Surgeries None recorded. Imaging XR, lumbosacr al spine, 2 or 3 view 2024 025 [facility], [address] [place] [address], [id number], 06/14/2024 11:19:03 Medication Orders None recorded. Patient TargetsNo targets recorded. Patient InstructionsNo instructions recorded. Reason for Referral None Reported. Results Created Date Observation Date Name Description Value Unit Range Abnormal Flag Note LastModifiedBy Organization Detail LastModifiedTime 06/14/1906/14/2024 CBC w/ auto diff CBC with differential Not Available [facility] [address] [place] [address], [id number], 06/14/2024 12:58:33 06/14/1906/14/2024 CBC w/ auto diff WBC 4.0 K/uL 3.8-11 .2 Not Available [facility] [address] [place] [address], [id number], 06/14/2024 12:58:33 06/14/1906/14/2024 CBC w/ auto diff RBC 3.76 M/uL 3.92-5 .10 low Not Available [facility] [address] [place] [address], [id number], 06/14/2024 12:58:33 06/14/1906/14/2024 CBC w/ auto diff HGB 12.5 g/dL 11.8-1 5.3 Not Available [facility] [address] [place] [address], [id number], 06/14/2024 12:58:33 06/14/1906/14/2024 CBC w/ auto diff HCT 38.7 % 36.5-4 4.8 Not Available [facility] [address] [place] [address], [id number], 06/14/2024 12:58:33 06/14/19 25 06/14/2024 CBC w/ auto diff MCV 102.9 fL 80.0-9 9.0 high Not Available [facility] [address] [place] [address], [id number], 06/14/2024 12:58:33 06/14/19 25 06/14/2024 CBC w/ auto diff MCH 33.2 pg 25.5-3 3.6 Not Available [facility] [address] [place] [address], [id number], 06/14/2024 12:58:33 06/14/19 25 06/14/2024 CBC w/ auto diff MCHC 32.3 g/dL 32.0-3 6.0 Not Available [facility] [address] [place] [address], [id number], 06/14/2024 12:58:33 06/14/19 25 06/14/2024 CBC w/ auto diff RDW-SD 52.5 fL 35.1 - 46.3 high Not Available [facility] [address] [place] [address], [id number], 06/14/2024 12:58:33 06/14/19 25 06/14/2024 CBC w/ auto diff plt 300 K/uL 130-40 0 Not Available [facility] [address] [place] [address], [id number], 06/14/2024 12:58:33 06/14/19 25 06/14/2024 CBC w/ auto diff MPV 9.4 fL 9.3-12 .8 Not Available [facility] [address] [place] [address], [id number], 06/14/2024 12:58:33 06/14/19 25 06/14/2024 CBC w/ auto diff natacha% 57.9 % not estab Not Available [facility] [address] [place] [address], [id number], 06/14/2024 12:58:33 06/14/19 25 06/14/2024 CBC w/ auto diff lym% 30.7 % not estab Not Available [facility] [address] [place] [address], [id number], 06/14/2024 12:58:33 06/14/19 25 06/14/2024 CBC w/ auto diff mono% 9.1 % not estab Not Available [facility] [address] [place] [address], [id number], 06/14/2024 12:58:33 06/14/19 25 06/14/2024 CBC w/ auto diff eos% 1.5 % not estab Not Available [facility] [address] [place] [address], [id number], 06/14/2024 12:58:33 06/14/19 25 06/14/2024 CBC w/ auto diff baso% 0.5 % not estab Not Available [facility] [address] [place] [address], [id number], 06/14/2024 12:58:33 06/14/19 25 06/14/2024 CBC w/ auto diff abs natacha 2.3 K/uL 1.8-7. 5 Not Available [facility] [address] [place] [address], [id number], 06/14/2024 12:58:33 06/14/19 25 06/14/2024 CBC w/ auto diff abs lym 1.2 K/uL 1.1-3. 3 Not Available [facility] [address] [place] [address], [id number], 06/14/2024 12:58:33 06/14/19 25 06/14/2024 CBC w/ auto diff abs mono 0.4 K/uL 0.1-1. 0 Not Available [facility] [address] [place] [address], [id number], 06/14/2024 12:58:33 06/14/19 25 06/14/2024 CBC w/ auto diff abs eos 0.1 K/uL 0.0-0. 7 Not Available [facility] [address] [place] [address], [id number], 06/14/2024 12:58:33 06/14/19 25 06/14/2024 CBC w/ auto diff abs baso 0.0 K/uL 0.0-0. 2 Not Available [facility] [address] [place] [address], [id number], 06/14/2024 12:58:33 06/14/19 25 06/14/2024 CBC w/ auto diff imm. gran % 0.3 % 0-5 Not Available [facility] [address] [place] [address], [id number], 06/14/2024 12:58:33 06/14/19 25 06/14/2024 CBC w/ auto diff NRBC % 0.0 % 0.0-0. 2 Not Available [facility] [address] [place] [address], [id number], 06/14/2024 12:58:33 06/14/19 25 06/14/2024 ESR (eryt hrocy te sedim entat ion rate) , blood sed rate 17 mm/HR 0 - 30 Not Available [facility] [address] [place] [address], [id number], 06/14/2024 13:15:20 06/14/19 25 06/14/2024 AST/S GOT (aspa rtate amino trans feras e), serum or plasm a AST (SGOT) high Not Available [facility] [address] [place] [address], [id number], 06/14/2024 13:37:21 06/14/19 25 06/14/2024 AST/S GOT (aspa rtate amino trans feras e), serum or plasm a AST (SGOT) 47 U/L 10-40 high Not Available [facility] [address] [place] [address], [id number], 06/14/2024 13:37:21 06/14/19 25 06/14/2024 C-eliseo ctive prote in, quant itati ve, serum or plasm a CRP Not Available [facility] [address] [place] [address], [id number], 06/14/2024 13:37:23 06/14/19 25 06/14/2024 C-eliseo ctive prote in, quant itati ve, serum or plasm a CRP <0.5 mg/dL <0.4-0 .5 Not Available [facility] [address] [place] [address], [id number], 06/14/2024 13:37:23 06/14/19 25 06/14/2024 ALT (rhina ine amino trans feras e), serum or plasm a ALT (SGPT) high Not Available [facility] [address] [place] [address], [id number], 06/14/2024 13:37:25 06/14/19 25 06/14/2024 ALT (rhina ine amino trans feras e), serum or plasm a ALT (SGPT) 39 U/L 8-35 high Not Available [facility] [address] [place] [address], [id number], 06/14/2024 13:37:25 11/30/19 24 05/11/2022 imagi ng/di agnos tic resul t No observ ation record ed. [email or web address] Not Available 11/30/2023 02:27:11 06/14/1906/14/2024 XR, lumbo sacra l spine , 2 or [address] [address] Teleph one Name: Qing Walton 2224Ex am Date: 2024 Age: 68Phys ician: Starla hutchins MD, Aristeo : 1955Ex aminat ion: XR LUMBAR 2 OR 3 VWS Exam: XR LUMBAR 2 OR 3 VWS INDICA TION: Lumbar spine pain into right leg for 5 months with no known injury . PROCED URE: Fronta l and latera l views of the lumbar spine were obtain ed. COMPAR ORESTES:N one availa ble FINDIN GS: Modera te facet and endpla te degene rative change s are seen at L5-S1. No fractu re. No listhe sis. Mild degene rative change s throug hout the remain ing lumbar spine. IMPRES FER: No fractu re. Degene rative change s. If furthe r evalua tion is necess kerry consid er MRI. Electr onical ly signed in [place] cribe by: RAND Goldberg MD on:05/19 10:16 AM cc: Page PAGE 1 of [facility] 1 [email or web address] [facility] [address] [place] [address], [id number], 06/17/2024 08:52:38 08/14/1911/17/2021 imagi ng/di agnos tic resul t No observ ation record ed. [email or web address] Not Available 02:14:29 10/19/19 25 06/26/2017 imagi ng/di agnos tic resul t No observ ation record ed. [email or web address] Not Available 0 10/18/2024 03:48:41 10/19/19 25 07/30/2019 imagi ng/di agnos tic resul t No observ ation record ed. [email or web address] Not Available 0 10/18/2024 03:48:41 10/19/19 25 03/02/2020 imagi ng/di agnos tic resul t No observ ation record ed. [email or web address] Not Available 0 10/18/2024 03:48:58 10/19/19 25 03/07/2019 imagi ng/di agnos tic resul t No observ ation record ed. [email or web address] Not Available 0 10/18/2024 03:48:58 Result Notes Documentation Provider Name and Address Organization Details Recorded Time Xr, Lumbosacral Spine, 2 Or 3 View : [address] [address] Name: Qing Mcnair Date: 06/14/2024 Age: 68Physician: MD Cirilo, Aristeo : 1955Examination: XR LUMBAR 2 OR 3 VWS Exam: XR LUMBAR 2 OR 3 VWS INDICATION: Lumbar spine pain into right leg for 5 months with no known injury. PROCEDURE: Frontal and lateral views of the lumbar spine were obtained. COMPARISON:None available FINDINGS: Moderate facet and endplate degenerative changes are seen at L5-S1. No fracture. No listhesis. Mild degenerative changes throughout the remaining lumbar spine. IMPRESSION: No fracture. Degenerative changes. If further evaluation is necessary consider MRI. Electronically signed in [employer] Training[employer] by: RAND GOMEZ MD on:06/14/2024 10:16 AM cc: Page PAGE 1 of [facility] 1 Aristeo Kerr MD [address] [place] [address], [phone], [facility] 06/17/2024 08:52:38 Problems Name Problem SNOMED Code Status Onset Date Resolution Date Notes Provider Name and Address Organization Details Recorded Time Lumbar radiculopathy 894301986 Active 2024 Aristeo Kerr MD [address] [place] [address], [phone], [facility] 5 10:20:20 Seropositive rheumatoid arthritis 434535178 Active 2024 Aristeo Kerr MD [address] [place] [address], [phone], [facility] 5 10:28:57 Seropositive erosive rheumatoid arthritis 961309337 Active 2023 Marti Wiseman [facility], [facility] 4 13:27:03 Problem Notes None recorded. Medical Equipment None Reported. Allergies Allergen ID Allergen Name Allergen Category Reaction Reaction Severity Criticality Documentation Date Start Date Code Code System Note Provider Name and Address Organization Details Recorded Time 7024108 mercaptop urine medicatio n Not available Not available Not available 05/17/20232016 103 RxNorm Comme nt: Annot ation s: FAUTSINO DA, YOSELIN E 2016 1:25P M leuko penia ; ; Not Available [facility] 4 04:14:22 8079321 hydroxych loroquine sulfate medicatio n dizziness Not available Not available 05/17/20232016 92188 2 RxNorm React ion: Dizzi ness; Not Available [facility] 4 04:14:24 1904601 famotidin e medicatio n headache Not available Not available 05/17/20232019 4278 RxNorm React ion: Heada len; Not Available [facility] 4 04:14:25 208130 Product containin g penicilli n (product) medicatio n hives Not available Not available 05/15/20232013 15205 8001 SNOMED React ion: Hives ; Itchi ng; Not Available [facility] 4 21:21:35 765947 Ceftin medicatio n hives itching Not available Not available Not available 05/15/20232022 41985 6 RxNorm React ion: Itchi ng; Not Available [facility] 4 19:17:09 696780 clindamyc in Not available itching Not available Not available 05/15/20232022 2582 RxNorm React ion: Itchi ng; Not Available [facility] 4 19:17:10 038062 sulfasala zine medicatio n nausea Not available Not available 05/15/20232015 9524 RxNorm React ion: Nause a; Not Available [facility] 4 21:21:36 247688 Biaxin medicatio n other Not available Not available 05/15/2023202272 9 RxNorm React ion: Other ; Comme nt: Other Anno tatio ns: Healt h Note, ADPVe ndor 2022 10:54 AM garli c and onion s; ; [facility] 19:[facility] Medications Name Sig Start Date Stop Date Status Note LastModified by Organization Details LastModified Time albuterol sulfate 0.63 mg/3 mL solution for nebulization NEEDED active Not Available Not Available No t Available benzonatate 200 mg capsule 10/12 completed Not Available Not Available Not Available hydrocodone 5 mg-acetaminop hen 325 mg tablet 10/12 completed Not Available Not Available Not Available lisinopril 20 mg tablet Once daily active Not Available Not Available No t Available valacyclovir 500 mg tablet 10/12 completed Not Available Not Available Not Available omeprazole 40 mg capsule,delay ed release once daily active Not Available Not Available No t Available ondansetron 8 mg disintegratin g tablet 10/12 completed Not Available Not Available Not Available dicyclomine 20 mg tablet 10/12 completed Not Available Not Available Not Available doxycycline monohydrate 100 mg capsule 10/12 completed Not Available Not Available Not Available gabapentin 300 mg capsule 10/12 completed Not Available Not Available Not Available fluticasone propionate 50 mcg/actuation nasal spray,suspens ion As Needed active Not Available Not Available No t Available oxycodone 5 mg tablet 10/04 completed Not Available Not Available Not Available duloxetine 60 mg capsule,delay ed release 02/08 completed Not Available Not Available Not Available sodium,potass ium,mag sulfates 17.5 gram-3.13 gram-1.6 gram oral soln 10/12 completed Not Available Not Available Not Available Rinvoq 15 mg tablet,extend ed release TAKE 1 TABLET BY MOUTH EVERY DAY active Not Available Not Available No t Available Vitals Date Recorded Heart rate Oxygen saturation Oxygen saturation in Arterial blood by Pulse oximetry Respiratory rate Provider Name and Address Organization Details Last Updated DateTime 07/25/2024 89 /min 98 % 98 % 20 /min Denilson Leavitt [facility] 09:04:53 Date Recorded Body weight Heart rate Systolic And Diastolic Provider Name and Address Organization Details Last Updated DateTime 10/04/2024 62953.01 g 79 /min 124/76 mm[Hg] [facility] 09:42[facility]26 Date Recorded Body weight Heart rate Systolic And Diastolic Provider Name and Address Organization Details Last Updated DateTime 10/13/2023 47526.08 g 72 /min 144/86 mm[Hg] [facility]13[facility] 10:04:50 Date Recorded Body weight Systolic And Diastolic Provider Name and Address Organization Details Last Updated DateTime 02/09/2024 88201.82 g 158/90 mm[Hg] Debra Kern [facility] 02/09/2024 10:04:20 Social History None recorded. Functional Status None recorded. Mental Status None recorded. Family History Nothing Reported. Medical History No medical history recorded. Gynecological HistoryNo gynecological history recorded. Obstetrics History GPAL:G 0 P 0 0 0 0 Past Encounters Encounter ID Performer Location Encounter Start Date Encounter Closed Date Diagnosis/Indication Diagnosis SNOMED-CT Code Diagnosis ICD10 Code Diagnosis Note [id number] Aristeo Kerr MD [facility] [place] [address] [place] [phone] 10/13/2023 09:49:43 10/14/2023 07:10:34 Taking high risk medication 6981051763 77308 Z91.89 Seropositi ve erosive rheumatoid arthritis 254354601 M05.9 Long-term current use of immunosuppressive drug 849206692 Z79.622 [id number] Aristeo Kerr MD [address] [facility] [place] [address] [place] [address] 3 02/09/2024 09:48:52 02/12/2024 18:06:08 Taking high risk medication 6709910057 18336 Z79.899 Seropositi ve erosive rheumatoid arthritis 004005112 M05.9 Long-term current use of drug therapy 567858247 Z79.622 [id number] Aristeo Kerr MD [address] [facility] [place] [address] [place] [address],[address] [place] [address] 3 06/14/2024 09:43:23 06/16/2024 05:05:09 Lumbar radiculopathy 118893403 M54.16 Taking hig h risk medication 7560278584 39552 Z79.899 Seropositi ve rheumatoid arthritis 902802971 M05.9 [id number] Jeremiah Chávez MD [address] [facility] [place]) [address] [place] [address] 07/25/2024 08:45:52 07/25/2024 12:01:22 [id number] Aristeo Kerr MD [address] [facility] [place] [address] [place] [address] 10/04/2024 09:30:03 10/08/2024 18:21:41 Taking high risk medication 9981268124 65512 Z79.899 Seropositi ve erosive rheumatoid arthritis 661315293 M05.9 Long-term current use of drug therapy 770597296 Z79.622 Health Concerns Section Related Observation LastModified by Organization Detai ls LastModified Time None Recorded Concern Status LastModified by Organization Details LastModified Time None Recorded Advance Directives Directive None Recorded Payers Insurance Date Sequence Insurance Name Policy Number Policy Jeffries Covered Member ID Jeffries Member ID Guarantor Name 10/10/2024 1 [employer] (MEDICARE REPLACEMENT/ ADVANTAGE - PPO) [id number] Qing Mcnair [id number] Qing Mcnair Notes Date Note Type Note Provider Name and Address Organization Details Recorded Time 10/13/2023 text/html This is a 67-year-old female who returns to the clinic in follow up for seropositive rheumatoid arthritis. Maintained on Rinvoq 15 mg once daily monotherapy. She has been compliant with the regimen. She has tolerated it without any complications. No cardiovascular events, MACE events or embolic events. Rheumatoid arthritis symptoms have remained stable. Unfortunately, she did have an episode of shingles since the last visit and she has been dealing with some nonspecific abdominal pain. She has had an extensive workup including imaging, scopes, etc. without any identifiable cause. They did however find some kidney stones and questioned if that could have been some of the culprit. She has follow up imaging pending. Otherwise, once again no febrile illnesses.klp Aristeo Kerr MD [address] [place] [address], [phone], [facility] 10/13/2023 15:28:33 02/09/2024 text/html This is a 68-year-old female who returns to the clinic in follow up for seropositive erosive rheumatoid arthritis. Maintained on her Rinvoq 15 mg once daily monotherapy. She tolerates it in a compliant manner. Reports no complications. No febrile illnesses. No cardiovascular events, MACE events or embolic events. There has been no worsening of her peripheral joint pain. She tells me she will be having elective gallbladder surgery here in the next couple weeks and cataract surgery. Otherwise, she remains at her normal state of health.reece Kerr MD [address] [place] [address], [phone], [facility] 02/12/2024 08:51:10 07/25/2024 text/html 68 year old who has had right-sided loin pain following the shingles in July of last year with significant well-healed scarring of the shingles blisters present with a girdle distribution pain along with it in the T9-10 distribution, 2. Having had lumbar back pain radiating into the gluteal area up to the middle of the thigh on the right side since she has had the knee replacement, which did not heal well and while she was in the boot as well, as been sent for further evaluation and advice by Dr. Kerr. She also had significant arthritis in the hands. She has never had any strokes, seizures. She rates the pain in the shingles area being 5 to 6 and in the back and thigh area being about 6 to 7. She cannot take the pain medications as they cause her significant vomiting and has to take Zofran with it. She only takes Tylenol p.r.n. She has not bladder or bowel problems. She does not use any assistive devices. [place] in the [place]. She has not had any physical therapy for the back or the leg. She has had a gallbladder removal without any improvement of the right-sided pain. 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 Jeremiah Chávez MD [address] [facility], [place], [address], [facility] 07/25/2024 20:29:20 OBGyn Episode No OBEpisode recorded.
--- OUTSIDE RECORDS SUMMARY | 2024-10-23 08:59 | XMS_ITS | Clinical Summary ---
Author Organization [address] Address [address] [place] [address] Care Team Providers Care Clinic Business Manager Name Role Phone Bart Connor MD Primary Care Provider [phone] Allergies Active Allergy Reactions Criticality Noted Date Comments Cefuroxime Axetil Itching Medium 01/20/2016 Penicillins Hives High 01/20/2016 Unclassified Drug Other (See Comments) 01/28/20 16 Cat gut suture Medications tocilizumab (ACTEMRA) 162 mg/0.9 mL Syringe Inject 162 mg by subcutaneous injection every 7 days. Active raNITIdine (ZANTAC) 150 mg tablet Take 150 mg by mouth 2 times daily. Active lisinopril (PRINIVIL) 20 mg tablet Take 20 mg by mouth daily. Active meloxicam (MOBIC) 15 mg tablet Take 15 mg by mouth daily. Active pyridoxine, vitamin B6, (VITAMIN B6) 100 mg Tablet Take 50 mg by mouth 2 times daily. Active vitamin A 10,000 unit capsule Take 10,000 Units by mouth daily. Active folic acid (FOLVITE) 0.8 mg Tablet Take 800 mcg by mouth 2 times daily. Active cholecalciferol , Vitamin D3, 2,000 unit Tablet Take 2,000 Units by mouth 2 times daily. Active Cranberry 400 mg Capsule Take 250 mg by mouth 2 times daily. Active Potassium 99 mg Tablet Take 99 mg by mouth 3 times daily. Active ascorbic acid, vitamin C, (VITAMIN C) 500 mg Tablet, Chewable Take 500 mg by mouth 3 times daily. 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 Gender Identity Not on file Sexual Orientation Not on file Last Filed Vital Signs Vital Sign Reading Time Taken Comments Blood Pressure 142/76 07/15/2016 10:41 AM CDT Pulse 89 01/28/2016 12:45 PM CDT Temperature 37.6 C (99.6 F) 01/28/2016 12:45 PM CDT Respiratory Rate 16 01/28/2016 12:45 PM CDT Oxygen Saturation 95% 01/28/2016 12:45 PM CDT Inhaled Oxygen Concentration - - Weight 60.3 kg (133 lb) 07/15/2016 10:41 AM CDT Height 165.1 cm (5' 5) 07/15/2016 10:41 AM CDT Body Mass Index 22.13 07/15/2016 10:41 AM CDT Plan of Treatment Health Maintenance Due Date Last Done Comments DTAP/TDAP/TD VACCINES (1 - Tdap) 1976 BREAST CANCER SCREENING 1997 COLORECTAL SCREENING 2002 Colorectal Cancer Screening 2002 FIT-DNA Q 3 years 2002 FIT/FOBT Q 1 year 2002 Flex Sig/CT Colonography Q 5 years 2002 PNEUMOCOCCAL VACCINE 50+ YEARS (1 of 1 - PCV) 11/22/19 08 ZOSTER VACCINE (1 of 2) 11/22/2007 OSTEOPOROSIS SCREENING 2022 INFLUENZA VACCINE (#1) 2024 RSV VACCINE (60+ or ) (1 - 1-dose 75+ series) [address] [place] [id number] BLUE ACCESS/TRUE BLUE PPO [employer] O OPEN ACCESS Advance Directives For more information, please contact: [phone] * Full Code (Latest Code Status on File) Date Activated Date Inactivated Comments 01/28/2016 9:25 AM 01/28/2016 3:07 PM * Full Code Date Activated Date Inactivated Comments 01/28/2016 8:24 AM 01/28/2016 9:25 AM Care Teams Clinic Business Manager Relationship Specialty Start Date End Date Bart Connor MD [facility] [place] [address] PCP - General Family Practice 01/13/16
--- OUTSIDE RECORDS SUMMARY | 2024-10-23 08:59 | XMS_ITS | Clinical Summary ---
Author Organization [email or web address] Address [address] [place] [address] Care Team Providers Care Air Plant Engineer Name Role Phone NataliaKrunal foster Primary Care Provider [phone] Source Comments [facility],non-owned Affiliates and Associated Physician Practices is amultiple site organization consisting of ambulatory clinics and hospital sitesin [place], [place], [place] and [place]. This disclosure is being madepursuant to the Care Everywhere program and may not contain all information available regarding this patient. Last updated 18.[facility] Social History Tobacco Use Types Packs/Day Years Used Date Smoking Tobacco: Never Assessed Comments Unknown Sex and Gender Information Value Date Recorded Sex Assigned at Not on file Legal Sex Female 10:47 AM CDT Gender Identity Not on file Sexual Orientation Not on file Plan of Treatment Health Maintenance Due Date Last Done Comments BONE DENSITY TESTING 1957 COLOGUARD (AGES 45-75) - COL ON CA SCREENING 1957 COLON MONITORING 1957 COLONOSCOPY - COLON CA SCREENING 1957 CT COLONOGRAPHY - COLON CA SCREENING 1957 Colorectal Cancer Screening 1957 FIT - COLON CA SCREENING 1957 FLEX SIG - COLON CA SCREENING 1957 MAMMOGRAM 1957 HEPATITIS C SCREENING 11/17/1975 DTAP/TDAP/TD VACCINES (1 - Tdap) 1976 PNEUMOCOCCAL VACCINE 50+ (1 of 1 - PCV) 11/22/2007 ZOSTER VACCINE (1 of 2) 11/22/2007 COVID-19 VACCINE ( - 2023-2 5 season) 2023 DEPRESSION SCREENING 04/17/2024 MEDICARE AWV CALENDAR YEAR 2024 LIPID TESTING 10/07/2024 10/08/2019 INFLUENZA VACCINE (#1) 2024 Respiratory Syncytial Virus (RSV) Vaccine Pt: or over 60 yrs (1 - 1-dose 75+ series) 2032 HEPATITIS B VACCINE Aged Out No longe r eligible based on patient's age to complete this topic HIB VACCINE Aged Out No longer eligi ble based on patient's age to complete this topic HPV VACCINE Aged Out No longer eligi ble based on patient's age to complete this topic MENINGOCOCCAL (Group B) VACC INE SHARED DECISION-MAKING Aged Out No longer eligibl e based on patient's age to complete this topic MENINGOCOCCAL GROUPS A/C/Y/W VACCINE Aged Out No longer eligible b ased on patient's age to complete this topic Insurance [facility] AETNA MEDICARE ADV * Guarantor: ÁLVARO MCNAIR Account Type Relation to Patient Date of Phone Billing Address Personal/Family [address] [place] [address] * Guarantor: ÁLVARO MCNAIR Account Type Relation to Patient Date of Phone Billing Address Personal/Family [address] [place] [address] * Guarantor: ÁLVARO MCNAIR Account Type Relation to Patient Date of Phone Billing Address Personal/Family [address] [place] [address] Care Teams Air Plant Engineer Relationship Specialty Start Date End Date Krunal Sarmiento DO [address] [place] [address] PCP - General Family Medicine 07/10/20
--- OUTSIDE RECORDS SUMMARY | 2024-10-23 08:59 | XMS_ITS | Encounter Summary ---
Author Organization [employer] Address [address] [place] [address] Care Team Providers Care Software Application Tester Name Role Phone Bart Connor MD Primary Care Provider [phone] Encounter Details Date Type Department Care Team (Latest Contact Info) Description 12/04/2000 Inpatient Historical [facility] Neal Talamantes MD NO ADDRESS ON FILE Polyarticular juvenile rheumatoid arthritis, chronic or unspecified (CMS/HCC) (Primary Dx) Social History Tobacco Use Types Packs/Day Years Used Date Smoking Tobacco: Never Assessed Comments Unknown Sex and Gender Information Value Date Recorded Sex Assigned at Not on file Legal 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
--- OUTSIDE RECORDS SUMMARY | 2024-10-23 08:59 | XMS_ITS | Clinical Summary ---
Author Organization [facility] Address [address] [place] [address] Care Team Providers Care Card Grader Name Role Phone NataliaKrunal foster Primary Care Provider [phone] Allergies Active Allergy Reactions Criticality Noted Date Comments Cefuroxime Hives 10/31/2023 Cephalosporins Itching 10/26/2021 Vaginal itching Cephalosporins Hives 10/31/2023 Clindamycin Itching 07/01/2021 Clindamycin Hives 10/31/2023 Indomethacin Other (see comment) 10/26/2021 Reaction: open sores, , Reaction: open sores, Levofloxacin Unknown 10/26/2021 Penicillins Hives,Rash,Unknown High 09/23/2010 Reaction: Hives, Penicillins Hives 10/31/2023 Sulfa Antibiotics Hives,Itching 11/08/2023 Suture Material Other (see comment) Low 01/28/2016 Cat gut suture Cat gut suture Medications Cranberry 250 MG Tab Take 1 tablet by mouth daily. Active Black Cohosh 540 MG Cap Take 2 capsules by mouth nightly. Active vitamin C 500 MG Chew Tab chewable tablet Chew 1 tablet (500 mg total) by mouth 2 (two) times a day. Active Upadacitinib ER (RINVOQ) 15 MG TABLET SR 24 HR Take 1 tablet by mouth daily. Active vitamin D3, cholecalciferol , 5000 UNITS capsule Take 1 capsule (125 mcg total) by mouth daily. Active omeprazole EC (PRILOSEC OTC) 20 MG tablet Take 1 tablet (20 mg total) by mouth daily as needed. Active ondansetron (ZOFRAN) 4 MG tablet Take 1 tablet (4 mg total) by mouth every 8 (eight) hours as needed for Nausea. 20 tablet 4 11/03/2021 Active lisinopril (PRINIVIL) 20 MG tablet Take 1 tablet (20 mg total) by mouth daily. Active Potassium 99 MG tablet Take 1 tablet by mouth daily. Active Magnesium 100 MG Tab Take by mouth daily. Active acetaminophen (TYLENOL) 325 MG tablet Take 2 tablets (650 mg total) by mouth every 6 (six) hours as needed for Pain. Active fluticasone propionate (FLONASE) 50 MCG/ACT nasal spray 2 sprays by Nasal route 2 (two) times daily. 11/17/2023 Active omeprazole (PRILOSEC) 40 MG capsule Take 1 capsule (40 mg total) by mouth 3 (three) times daily. 01/31/2024 Active oxyCODONE immediate release (ROXICODONE) 5 MG immediate release tabletIndicatio ns:Acute Pain < 7 Day Supply Take 1 tablet (5 mg total) by mouth every 4 (four) hours as needed. Indications: Acute Pain < 7 Day Supply 21 tablet 02/28/2024 Active ondansetron (ZOFRAN) 4 MG tabletIndicatio ns:Biliary dyskinesia Take 1 tablet (4 mg total) by mouth every 8 (eight) hours as needed for Nausea. 20 tablet 02/28/2024 Active Active Problems Problem Noted Date Diagnosed Date Painful orthopaedic hardware 07/02/2021 Flexion contracture of right knee 07/02/2021 Family History Medical History Relation Comments Cancer Father Hypertension Mother Thyroid Disease Mother Relation Status Comments Brother Alive Father Mother Alive Social History Tobacco Use Types Packs/Day Years Used Date Smoking Tobacco: Never Smokeless Tobacco: Never Tobacco Cessation:Counseling Given: Not Answered Alcohol Use Standard Drinks/Week Comments Not Currently 0 (1 standard drink = 0.6 oz pur e alcohol) rare occasion Comments No Sex and Gender Information Value Date Recorded Sex Assigned at Not on file Legal Sex Female 8:29 PM CDT Gender Identity Female 06/30/2021 9:33 AM CDT Sexual Orientation Straight 06/30/2021 9: 33 AM CDT Last Filed Vital Signs Vital Sign Reading Time Taken Comments Blood Pressure 134/70 02/28/2024 4:30 PM DEPUTY CONTROLLER Pulse 71 02/28/2024 4:30 PM DEPUTY CONTROLLER Temperature 37.1 C (98.8 F) 02/28/2024 4:30 PM DEPUTY CONTROLLER Respiratory Rate 16 02/28/2024 4:30 PM DEPUTY CONTROLLER Oxygen Saturation 92% 02/28/2024 4:30 PM DEPUTY CONTROLLER Inhaled Oxygen Concentration - - Weight 57.5 kg (126 lb 12.2 oz) 024 10:45 AM DEPUTY CONTROLLER Height 166.4 cm (5' 5.5) 02/28/2024 10 :45 AM DEPUTY CONTROLLER Body Mass Index 20.77 02/28/2024 10:45 AM DEPUTY CONTROLLER Plan of Treatment Health Maintenance Due Date Last Done Comments Colorectal Cancer Screening Colonoscopy (10 Years) 1957 Hepatitis C 11/22/1975 DTaP, Tdap and Td Vaccines ( 1 - Tdap) 1976 Mammogram Screening 1997 Pneumococcal Vaccine: 50+ Ye ars (1 of 1 - PCV) 11/22/2007 Zoster Vaccines (1 of 2) 11/22/2007 Annual Medicare Wellness Visit 2022 Dexa Scan (General) 2022 COVID-19 Vaccine (2 - 2023-2 5 season) 2023 09/04/2020 RSV Immunization or 60+ Years (1 - 1-dose 75+ series) 2032 Meningococcal B Vaccine Aged Out No l onger eligible based on patient's age to complete this topic Meningococcal Vaccine Aged Out No reese reji eligible based on patient's age to complete this topic RSV Immunizations Under 20 Months Aged Out No longer eligible based on patient's age to complete this topic Medical Devices Implanted Type Area Machine Operator Cane Cutter Device Identifier Shelf Expiration Date Model / Serial / Lot Cement Bone Refobacin Sterile Latex Free Disposable - [id number] Implanted:Qty : 2 on 11/02/2021 by Gilberto Ponce MD at [facility] Cement Implant Right: Knee [employer] 09/15/2023 [id number] / / Component Tibial Stemmed Porous Megan Size 5 - [id number] Implanted:Qty : 1 on 11/02/2021 by Gilberto Ponce MD at [facility] Knee Components Right: Knee [employer] [id number] 01/04/2025 [id number] / / [id number] Stem Megan Femur Ext 11 X 130mm Fluted - [id number] Implanted:Qty : 1 on 11/02/2021 by Gilberto Ponce MD at [facility] Knee Components Right: Knee [employer] [id number] 06/14/2028 [id number] / / [id number] Stem Megan Tibial Ext 10 X 145mm Str - [id number] Implanted:Qty : 1 on 11/02/2021 by Gilberto Ponce MD at [facility] Knee Components Right: Knee [employer] [id number] 10/15/2027 [id number] / / [id number] Stent Ureteral Contour Vl 4.8fr X 22-30cm - [id number] Implanted:Qty : 1 on 11/08/2023 by Clyde Tom MD at [facility] Stent Right: Ureter [employer] MARIAH [id number] 09/04/2026 [id number] / / [id number] Anti-Rotation Screw Implanted:Qty : 1 on 11/02/2021 by Gilberto Ponce MD at [facility] Right: Knee [employer] 09/25/[id number] / / Rotating Hinge Knee Femoral Component Implanted:Qty : 1 on 11/02/2021 by Gilberto Ponce MD at [facility] Right: Knee [employer] [id number] 09/14/2024 / / [id number] Articular Surface Implanted:Qty : 1 on 11/02/2021 by Gilberto Ponce MD at [facility] Right: Knee [employer] [id number] 06/28/2025 / / [id number] Femoral Metaphyseal Cone Implanted:Qty : 1 on 11/02/2021 by Gilberto Ponce MD at [facility] Right: Knee [employer] [id number] 10/04/2030 [id number] / / [id number] Tibia Central Cone Implanted:Qty : 1 on 11/02/2021 by Gilberto Ponce MD at [facility] Right: Knee [employer] [id number] 11/16/2029 [id number] / / [id number] Explanted Type Area Machine Operator Cane Cutter Device Identifier Shelf Expiration Date Model / Serial / Lot System Bone Cement Clearmix 1 2 - [id number] Explanted:Qty: 1 on 11/02/2021 by Gilberto Ponce MD at [facility] Cement Implant Right: Knee [employer] [id number] / / 2mm Set Screw Welding Machine Operator Gas Metal Arc Explanted:Qty: 1 on 11/02/2021 by Gilberto Ponce MD at [facility] Right: Knee [employer] [id number] / / Insurance [employer] Advance Directives * Full Code (Latest Code Status on File) Date Activated Date Inactivated Comments 11/02/2021 6:57 PM 11/03/2021 7:03 PM Care Teams Card Grader Relationship Specialty Start Date End Date Krunal Sarmiento DO [address] [place] [address] PCP - General FAMILY PRACTICE 10/08/19
--- OUTSIDE RECORDS SUMMARY | 2024-10-23 08:59 | XMS_ITS | Clinical Summary ---
Author Organization [facility] Medical Office Building 1 [address] [facility] [address] [place] [phone] Care Team Providers Care Workforce Advisor Name Role Phone Krunal Sarmiento Primary Care Provider Allergies Active Allergy Reactions Criticality Noted Date Comments Cefuroxime Itching,Unknown,Rash Medium 09/23/2010 Reaction: Itching, Clindamycin Itching Low 07/01/2021 Indomethacin Other (See comments) Reaction: open sores, , Reaction: open sores, Other Other (See comments) Low 01/28/2016 Cat gut suture Penicillins Hives,Rash,Unknown High 09/23/2010 Reaction: Hives, Unclassified Drug Other (See comments) Low 01/28/20 16 Cat gut suture Medications ranitidine (ZANTAC) 150 mg capsule TAKE 1 CAPSULE TWICE A DAY 180 5 2 Active folic acid (FOLVITE) 800 mcg tablet take 1 tablet (0.8MG) by oral route every day 0 2 Active Additional Information Patient not taking.Reported on 12/06/2022 potassium 99 mg tablet 99 mg. 0 2 Active ascorbic acid (VITAMIN C) 500 mg tablet,chewable 500 mg. 0 2 Active black cohosh (MENOPAUSE SUPPORT) 20 mg tablet take 2 Capsule by Oral route every 2 days 0 2 Active tocilizumab (ACTEMRA) 162 mg/0.9 mL syringe inject 0.9 milliliter by subcutaneous route every week 0 Syringe 0 6 Active hydroxychloroqu ine (PLAQUENIL) 200 mg tablet take 1 tablet by oral route every 2 days 0 0 6 Active ondansetron (ZOFRAN) 8 mg tablet take 1 tablet by oral route every 8 hours for 2 days 0 0 6 Active lisinopril (PRINIVIL,ZESTR IL) 20 mg tablet take 1 tablet by oral route every day 0 0 6 Active Active Problems Problem Noted Date Diagnosed Date Rheumatoid arthritis 07/26/2021 Painful orthopaedic hardware 07/02/2021 Flexion contracture of right knee 07/02/2021 Open wound of left ankle with tendon involvement 02/05/2016 Dizziness 12/17/2015 Overview (07/21/2016): Dizziness Palpitations 12/17/2015 Overview (07/21/2016): Palpitations Essential hypertension 12/17/2015 Overview (07/21/2016): Essential hypertension Abnormal electrocardiography 12/17/2015 Overview (07/21/2016): Abnormal EKG Drug therapy finding 08/28/2012 Overview (07/22/2016): Therapeutic Drug Monitoring 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 Overview (07/23/2016): JUV RHEUM ARTHRITIS NOS Encounters Date Type Department Care Team Description 10/15/2024 12:00 PM CDT Office Visit [facility] Orthopaedic Surgery [address] [facility] Medical Office Building [address] [place] [phone] Karen Monroe MD Chronic pain of left ankle (Primary Dx); History of total replacement of left ankle 10/15/2024 11:05 AM CDT - 10/15/2024 11:59 PM CDT Hospital Encounter [facility] [address] [place] [address] [address] [place] [phone] Chronic pain of left ankle Discharge Disposition: Discharge to home or self care from Last 3 Months Medical History Medical History Date Comments Hx Other Medical Rhuematic fever Hx Other Medical R Knee Replacem ent Hx Other Medical 2000 L Knee Replacem ent Hx Other Medical 2003 R Shoulder Repl aced Hx Other Medical 2007 R Hip Replaced Hx Other Medical L Hip Replaceme nt Hx Other Medical 2011 L Shoulder Repl aced Rheumatoid arthritis (HCC) History of total bilateral knee replacement 04/18 001 &11/2020 H/O shoulder replacement 09/2003 RIGHT History of hip replacement 01/2008 &02/2008 Family History Medical History Relation Name Comments Hypertension Brother Heart disease Father Diabetes Other 1 Family history of Diabetes mellitus; Hypertension Other 2 Family history of Hypertension; Osteoarthritis Other 3 Family histor y of Osteoarthritis; Other Other 4 No family histo ry of Other; Stroke Other 5 Family history of Stroke; Hypertension Sister Relation Name Status Comments Brother Father Other 1 Other 2 Other 3 Other 4 Other 5 Sister Social History Tobacco Use Types Packs/Day Years Used Date Smoking Tobacco: Never Smokeless Tobacco: Never Tobacco Cessation:Counseling Given: Not Answered Alcohol Use Standard Drinks/Week Comments No 0 (1 standard drink = 0.6 oz pur e alcohol) Comments Unknown Sex and Gender Information Value Date Recorded Sex Assigned at Not on file 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 Gender Identity Not on file Sexual Orientation Not on file Occupation Industry Job Start Date Job End Date RETIRED Not on file Not on file Not on file Obstetrics History Last Filed Vital Signs Vital Sign Reading Time Taken Comments Blood Pressure 126/84 12/17/2015 12:30 PM CDT Pulse 66 12/17/2015 11:46 AM CDT Temperature - - Respiratory Rate - - Oxygen Saturation 100% 08/19/2015 8:00 AM CDT Inhaled Oxygen Concentration - - Weight 56.7 kg (125 lb) 10/15/2024 11:45 AM CDT Height 166.4 cm (5' 5.5) 10/15/2024 11:45 AM CD T Body Mass Index 20.48 10/15/2024 11:45 AM CDT Plan of Treatment Health Maintenance Due Date Last Done Comments Breast Cancer Screening-Mammogram 1957 Colon Cancer Screening-Colonoscopy 1957 Depression Screening 1957 Fall Risk Assessment 1957 Hepatitis C Screening 1957 Osteoporosis Screening-Bone Density Scan 1957 DTaP/Tdap/Td Vaccine (1 - Tdap) 1968 Hepatitis B Screening 11/22/1975 Pneumococcal vaccine 65+ (1 of 2 - PCV) 1976 Zoster Vaccine (1 of 2) 1976 Covid-19 Vaccine (2 - Charlie risk series) 10/02/2020 09/04/2020 Well Visit 65+ 2022 Influenza Vaccine (#1) 2024 Procedures Procedure Name Priority Date/Time Associated Diagnosis Comments XR ANKLE LEFT 3 OR MORE VIEWS Schedule Routine, Read Routine (OP Routine) 10/15/2024 11:14 AM CDT Chronic pain of left ankle from Last 3 Months Results * XR Ankle Left 3 or More Views (10/15/2024 11:14 AM CDT) Anatomical Region Laterality Modality Lower Extremities, Ankle Left Compute d Radiography 10/15/2024 2:13 PM CDT Impressions 10/15/2024 2:13 PM CDT 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 Electronically signed by: Renlado Infante M.D. Narrative 10/15/2024 2:13 PM CDT EXAMINATION: XR ANKLE LEFT 3 OR MORE VIEWS HISTORY: Ankle osteoarthritis FINDINGS: 3 views of the left ankle were performed with comparison made to 07/26/2021. There is a left total ankle arthroplasty in near-anatomic position. There is periprosthetic lucency underlying the tibial tray. There is mild to moderate subtalar osteoarthritis. 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 Prior talonavicular arthrodesis is noted. There is no periprosthetic fracture. Procedure Note Renaldo Infante MD PhD - 10/15/2024 EXAMINATION: XR ANKLE LEFT 3 OR MORE VIEWS HISTORY: Ankle osteoarthritis FINDINGS: 3 views of the left ankle were performed with comparison made to 07/26/2021. There is a left total ankle arthroplasty in near-anatomic position. There is periprosthetic lucency underlying the tibial tray. There is mild to moderate subtalar osteoarthritis. 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 Prior talonavicular arthrodesis is noted. There is no periprosthetic fracture. 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 Electronically signed by: Renaldo Infante M.D. Karen Monroe MD IMG XR PROCEDURES Final Re sult from Last 3 Months Insurance AETNA MEDICARE [facility] Address: [address] [place] [address] [employer] [place] [employer] OPEN ACCESS [facility] MEDICARE Care Teams Workforce Advisor Relationship Specialty Start Date End Date Krunal Sarmiento DO [address] [place] [address] PCP - General Family Medicine 07/01/21
--- OUTSIDE RECORDS SUMMARY | 2024-10-23 08:59 | XMS_ITS | Referral Summary ---
Author Organization [facility] Medical Office Building 1 [address] [facility] [address] [place] [phone] Care Team Providers Care Embroidery Specialist Name Role Phone Krunal Sarmiento Primary Care Provider Encounters Date Type Department Care Team Description 10/15/2024 11:05 AM CDT - 10/15/2024 11:59 PM CDT Hospital Encounter [facility] [address] [facility] [address] [place] [address] Chronic pain of left ankle Discharge Disposition: Discharge to home or self care 10/15/2024 12:00 PM CDT Office Visit [facility] Orthopaedic Surgery [address] [facility] Medical Office Building [address] [place] [address] Karen Monroe MD Chronic pain of left ankle (Primary Dx); History of total replacement of left ankle from Last 3 Months Allergies Active Allergy Reactions Criticality Noted Date [...] 08/28/2012 Overview (07/23/2016): JUV RHEUM ARTHRITIS NOS Social History Tobacco Use Types Packs/Day Years Used Date Smoking Tobacco: Never Smokeless Tobacco: Never Tobacco Cessation:Counseling Given: Not Answered Alcohol Use Standard Drinks/Week Comments No 0 (1 standard drink = 0.6 oz pur e alcohol) Comments Unknown Sex and Gender Information Value Date Recorded Sex Assigned at Not on file 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 Electronically signed by: Renaldo Infante M.D. Narrative 10/15/2024 2:13 PM CDT [...] from Last 3 Months Insurance AETNA MEDICARE [facility] OPEN ACCESS AET MEDICARE Care Teams Embroidery Specialist Relationship Specialty Start Date End Date Krunal Sarmiento DO [address] [place] [address] PCP - General Family Medicine 07/01/21
--- OUTSIDE RECORDS SUMMARY | 2024-10-23 08:59 | XMS_ITS | Encounter Summary ---
Author Organization [facility] Address [address] [place] [address] Care Team Providers Care Robotic Machine Tender Production Name Role Phone Bart Connor MD Primary Care Provider [phone] Encounter Details Date Type Department Care Team (Latest Contact Info) Description 05/16/2000 Inpatient Historical [facility] Neal Talamantes MD NO ADDRESS ON FILE Polyarticular juvenile rheumatoid arthritis, chronic or unspecified (CMS/HCC) (Primary Dx) Social History Tobacco Use Types Packs/Day Years Used Date Smoking Tobacco: Never Assessed Comments Unknown Sex and Gender Information Value Date Recorded Sex Assigned at Not on file 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
--- OUTSIDE RECORDS SUMMARY | 2024-10-23 08:59 | XMS_ITS | Patient Health Record ---
Author Organization [facility] sarah Address [address] [facility] [address] [place], [place] [address] Care Team Providers Care On Site Services Specialist Name Role Phone Lakesha Flor Unavailable [phone] ALLERGIES Allergen (clinical drug ingredient) Drug/Non Drug Allergy documented on EMR Reaction Allergy Type Onset Date Status penicillin Unknown Drug Allergy Active Ceftin Unknown Drug Allergy Active REASON FOR REFERRAL No Information MEDICATIONS Medication SIG (Take, Route, Fr equency, Duration) Notes Start Date End Date Status Vitamin C 04/17/2024 04/17/2024 Active methotrexate 2.5 mg 6 TAB orally once a week 12/11 Active Vitamin D2 (obsolete) 04/17/2024 001 Active Vitamin A, D 04/17/2024 04/17/2024 Activ e Boniva 150 mg 1 tab(s) orally once a month for 90 day(s) 09/29/2011 Active Simponi 50 MG 50 MG subcutaneously ONCE A MONTH for 90 day(s) 11/24/2009 Active black cohosh 04/17/2024 04/17/2024 Activ e folic acid 04/17/2024 04/17/2024 Active raNITIdine 150 mg 1 cap(s) orally 2 ti mes a day for 90 DAY 12/23/2010 Active PROBLEMS Problem Type ICD Code Onset Dates Problem Status W/U Status Risk SNOMED Code Notes Problem MONITOR MED (V58.69) Active confirmed Long-term drug therapy (696532855) Problem Rheumatoid Arthritis (714.0) Active confirmed Rheumatoid arthritis (00699477) PLAN OF TREATMENT Pending Test Test Name Order Date T4 Free 09/23/2008 TSH 09/23/2008 C-Reactive Protein, Quant 09/05/2008 C-Reactive Protein, Quant 09/23/2008 Insurance Providers Payer Name Payer Address Payer Phone Subscriber Number Group Number Insured Name Patient Relationship to Insured Coverage Start Date Coverage End Date [employer] OPEN ACCESS [address] [place] [address] [id number] ÁLVARO TEJADA Self - patient is the insured 7 MEDICAL (GENERAL) HISTORY Medical History History ICD Code sinus problems Neck pain bronchitis knee pain Surgical History Surgery Date(Month/Year) T& A 1995 wrist surgery 1994 multiple knee surgery 1994 synovectomy lashon knees 1987 synovectomy lashon knees 1969 hip replacement (both hips) 2007 Right knee 2010
[2024-10-23 09:03] LABS: Hematocrit 34.3 % (35.0-42.0); Hemoglobin 11.0 g/dL (11.7-13.8); Mean Corpuscular HGB Conc 32.1 g/dL (32-36); Mean Corpuscular Hemoglobin 32.4 pg (27.0-31.0); Mean Corpuscular Volume 101.2 fL (78.0-102.0); Platelet Count Result 261 K/mm3 (150-420); Red Blood Count 3.39 M/mm3 (4.20-5.40); White Blood Count 3.7 K/mm3 (4.8-10.8)
[2024-10-23 09:20] LABS: Alanine Aminotransferase 21 U/L (6-35); Aspartate Amino Transferase 39 U/L (14-36); Band Neutrophils Percent 0 % (0-6); Basophils Absolute Manual 0.03 K/mm3 (0-0.1); Basophils Percent Manual 1 % (0-1); Eosinophils Absolute Manual 0.07 K/mm3 (0.02-0.50); Eosinophils Percent Manual 2 % (1-6); Lymphocytes Absolute Manual 1.18 K/mm3 (1.1-4.5); Lymphocytes Percent Manual 32 % (18-44); Monocytes Absolute Manual 0.25 K/mm3 (0.1-0.90); Monocytes Percent Manual 7 % (3-9); Neutrophils Absolute Manual 2.14 K/mm3 (1.3-6.7); Neutrophils Percent Manual 58 % (46-73); Schistocytes None Seen; Total Cells Counted 100
[2024-10-23 09:21] LABS: Anisocytosis 1+; Hypochromasia 2+
== END 2024-10-23 08:50 | disposition home or self-care (01) ==
LOC: CHSLAB 08:54
PROVIDERS: PCP Family Medicine
DX: Z79.899 Other long term (current) drug therapy (principal)
CPT/HCPCS: 36415; 84450; 84460; 85025

== ENCOUNTER 2025-02-17 08:17 | Emergency (ER) | payer MEDICARE, SELFPAY ==
--- OUTSIDE RECORDS SUMMARY | 2025-01-15 04:00 | XMS_ITS | Continuity of Care Document ---
Author Organization [facility] Address [address] [place] [address] Phone Care Team Providers Care Wrapper Opener Name Role Phone Laurie Jon MD, Delmar Unavailable Unavailab le Allergies, Adverse Reactions, Alerts Substance Reaction Status Criticality sulfamethoxazole Active No Informat ion clindamycin Active No Information CEFUROXIME AXETIL Active No Informa tion Sulfa (Sulfonamide Antibiotics) Active No Information Penicillins Active No Information Medications Medication Instructions Dosage Effective Dates (start - stop) Status Comments Rinvoq 15 mg tablet,extended release take 1 tablet by oral route every day 15 MG - Active lisinopril 20 mg tablet take 1 tablet by oral route every day 20 MG - Active POTASSIUM GLYCINATE (unknown strength) Not Available - Active omeprazole 40 mg capsule,delayed release take 1 capsule by oral route 2 times every day before a meal 40 MG - Active cranberry 500 mg capsule - Active black cohosh 540 mg capsule - Active Vitamin C 500 mg tablet - Active Vitamin D3 25 mcg (1,000 unit) tablet - Active folic acid 800 mcg tablet take 1 tablet by oral route 4 times every day 0.8 MG - Active Procedures Procedure Date RADEX KNE 3 VIEWS OFFICE/OUTPATIENT VISIT NEW Advance Directives Directive Yes / No Effective Date File Name Other Directive No N/A N/A WARNING:The information contained in this section is historical and is provided for information only and does not constitute a legal document or any assurance that the information is still accurate. Please verify the information with the sweeney of the legal document before using it for clinical purposes. Encounters Encounter Description Practice Location Reason(s) For Visit Diagnoses Date Provider Providers Copied on Encounter OFFICE/OUTPA TIENT VISIT NEW [facility], [address], [place], [address], tel:[phone] [facility] Pain in left kneePain in right knee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, initial encounterHistory of total left knee replacement (TKR) [address] Laurie Jacobsen. [address], [place], [address], [place]. tel: [phone] Family History Family Member Type Diagnosis Age At Onset No Information Payers Payer name Insurance type Covered constitution party ID Jacky hodge(s) Aetna Medicare PPO [id number] [id number] Social History Type Description Quantity Date Captured Comments Alcohol Use Details No Caffeine Use Details Unknown Tobacco Use Status Current non-smoker Smoking Status Never smoker Non-Smoking Tobacco Use Details : No Details Available : No Details Available Sex Female Vital Signs Date / Time: Height Weight BMI Pulse Rate Blood Pressure Temperature Respiratory Rate Body Surface Area Head Circumference Head Circ. Percentile Wt./Jerzy. Percentile BMI percentile Pulse Ox Inhaled Ox 10:43 AM 65.50 in 56.699 kg (125.00 lbs) 20.4 8 kg/m eter (2) Chief Complaint And Reason For Visit No Information Reason For Referral Reason For Referral No Information Plan Of Treatment Date Type Action Status Referral Ordered: FLUORO GUIDED NEEDLE PLCMNT RT knee Appointment date/timeframe: 01/29/2025 ordered Referral Ordered: B1&/JT IMG 3 PHASE STD RT knee Appointment date/timeframe: 02/07/2025 ordered Referral Ordered: RADEX KNE 3 VIEWS Bilateral ordered Appointment Qing Mcnair Scheduled Future Order: Lab Order C-Reacti ve Protein, Quant ([id number]), Ordered on: Ordered Future Order: Lab Order Sediment ation Rate-Westergren ([id number]), Ordered on: Ordered History Of Present Illness Encounter Date Complaint History Of Prese nt Illness No Information Functional Status Date Functional Assessmen t No Information Instructions Date Instruction Additional Infor mation Fall prevention home exercise program handout provided Assessments Type Assessment Date assessment Pain in left knee assessment Pain in right knee assessment Pain due to total right knee rep lacement, initial encounter assessment History of total left knee repla cement (TKR) Patient Care Teams Name Effective Dates (start - stop) Status Members No Information
[2025-02-17] VITALS (16 sets, daily range): BP systolic 98–165; BP diastolic 45–81; PULSE 63–82; RESP 15–18; TEMP 37.2; O2SAT 90–98
--- NOTE | ~2025-02-17 | CT_ITS ---
EXAMINATION: CT lumbar spine wo con DATE: 02/17/2025 09:20 INDICATION: Low back pain. TECHNIQUE: Computed tomography (CT) of the lumbar spine was performed without intravenous contrast. Automated exposure control and iterative reconstruction technique were employed. The dose-length product was 467.51 mGy-cm. COMPARISON: None FINDINGS: There are multiple stones in right kidney measuring up to 8 mm. There is 4 degrees dextrocurvature of lumbar spine. There is a burst fracture of L3 with 2/5 loss of height and retropulsion of bone 2 mm into central spinal canal. There is 2 mm anterolisthesis of L4 on L5. There is mild chronic anterior wedging of T11 vertebral body. There is severely decreased disc height at L5-S1. 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 The following disc levels are specifically discussed: L1-L2: The disc does not extend beyond the endplate margin. There is moderate bilateral facet joint osteoarthritis. There is mild left neural foraminal stenosis. There is no central canal stenosis. L2-L3: The disc is bulging. There is severe bilateral facet joint osteoarthritis. There is mild bilateral neural foraminal stenosis. There is mild central canal stenosis. L3-L4: The disc is bulging. There is severe bilateral facet joint osteoarthritis. There is mild bilateral neural foraminal stenosis. There is no central canal stenosis. L4-L5: The disc is bulging. There is severe bilateral facet joint osteoarthritis. There is mild bilateral neural foraminal stenosis. There is mild bilateral central canal stenosis. L5-S1: The disc is bulging. There is severe bilateral facet joint osteoarthritis. There is moderate bilateral neural foraminal stenosis. There is mild central canal stenosis. IMPRESSION: 1. Acute versus subacute L3 burst fracture. 2. Severe lumbar spondylosis. Reviewed, dictated and finalized at location [facility] [employer]
--- OUTSIDE RECORDS SUMMARY | 2025-02-17 08:25 | XMS_ITS | Clinical Summary ---
Author Organization [facility] [email or web address] Address [address] [place] [address] Care Team Providers Care Cook Italian Style Food Name Role Phone NataliaKrunal foster Primary Care Provider [phone] Source Comments [facility],non-owned Affiliates and Associated Physician Practices is amultiple site organization consisting of ambulatory clinics and hospital sitesin [place], [place], [place] and [place]. This disclosure is being madepursuant to the Care Everywhere program and may not contain all information available regarding this patient. Last updated 18.[facility] [email or web address] Social History Tobacco Use Types Packs/Day Years [...] FLEX SIG - COLON CA SCREENING 1957 LIPID TESTING 1957 MAMMOGRAM 1957 HEPATITIS C SCREENING 11/17/1975 DTAP/TDAP/TD VACCINES (1 - Tdap) 1976 PNEUMOCOCCAL VACCINE 50+ (1 of 1 - PCV) 11/22/2007 ZOSTER VACCINE (1 of 2) 11/22/2007 DEPRESSION SCREENING 04/17/2024 MEDICARE AWV CALENDAR YEAR 2024 COVID-19 VACCINE (2023-2 5 season) 2024 INFLUENZA VACCINE (#1) 2024 Respiratory Syncytial Virus [...] patient's age to complete this topic Insurance [facility] Address: [facility] [id number] [place] [address] [employer] [facility] AETNA MEDICARE ADV * Guarantor: ÁLVARO MCNAIR Account Type Relation to Patient Date of Phone Billing Address Personal/Family [address] [place] [address] * Guarantor: ÁLVARO MCNAIR Account Type Relation to Patient Date of Phone Billing Address Personal/Family [address] [place] [address] * Guarantor: ÁLVARO MCNAIR Account Type Relation to Patient Date of Phone Billing Address Personal/Family [address] [place] [address] Care Teams Cook Italian Style Food Relationship Specialty Start Date End Date Krunal Sarmiento DO [address] [place] [address] PCP - General Family Medicine 07/10/20
--- OUTSIDE RECORDS SUMMARY | 2025-02-17 08:25 | XMS_ITS | Clinical Summary ---
Author Organization [facility] Medical Office Building 1 Address [address] [address] Care Team Providers Care Fruit Harvester Name Role Phone Krunal Sarmiento Primary Care [...] Active Additional Information Patient not taking.Reported on 02/05/2025 potassium 99 mg tablet 99 mg. 0 2 Active ascorbic acid (VITAMIN C) 500 mg tablet,chewable 500 mg. 0 2 Active Additional Information Patient not taking.Reported on 02/05/2025 black cohosh (MENOPAUSE SUPPORT) 20 mg tablet take 2 Capsule by Oral route every 2 days 0 2 Active tocilizumab (ACTEMRA) 162 mg/0.9 mL syringe inject 0.9 milliliter by subcutaneous route every week 0 Syringe 0 6 Active Additional Information Patient not taking.Reported on 02/05/2025 hydroxychloroqu ine (PLAQUENIL) 200 mg tablet take 1 tablet by oral route every 2 days 0 0 6 Active Additional Information Patient not taking.Reported on 02/05/2025 ondansetron (ZOFRAN) 8 mg tablet take 1 tablet by oral route every 8 hours for 2 days 0 0 6 Active Additional Information Patient not taking.Reported on 02/05/2025 lisinopril (PRINIVIL,ZESTR IL) 20 mg tablet take 1 tablet by oral route every day 0 0 6 Active Rinvoq 15 mg extended release tablet Take 1 tablet (15 mg total) by mouth daily 5 Active calcium carbonate-vitam in D3 1,250mg (500mg elemental) - 5 mcg (200 units) per tablet Take 1 tablet by mouth 2 (two) times a day with meals Active magnesium glycinate 100 mg tablet Take by mouth Active amitriptyline (ELAVIL) 25 mg tablet Take 1 tablet (25 mg total) by mouth nightly 90 tablet 3 5 Active Active Problems Problem Noted Date Diagnosed Date History of total replacement of left ankle 12/26 Rheumatoid arthritis 07/26/2021 Painful orthopaedic hardware 07/02/2021 [...] Encounters Date Type Department Care Team Description 02/06/2025 Results Follow-Up [facility] G[facility]ology at [address] [place] [phone] Sridhar Patel MD IgA, Tissue transglutaminase IgA (TGG-IgA Ab), Lipase, Additional followed-up results: 4 02/05/2025 2:00 PM CDT Lab [address] [address] Abdominal pain, unspecified abdominal location 02/05/2025 1:30 PM CDT Office Visit [facility] at [address] [place] [phone] Sridhar Patel MD Abdominal pain, unspecified abdominal location (Primary Dx) 01/08/2025 Transcribe Orders [facility] Gastroenterology at [address] [place] [phone] James Holm MA History of colon polyps (Primary Dx); Gastroesophageal reflux disease with esophagitis without hemorrhage; Nausea 12/26/2024 8:56 AM CDT - 12/26/2024 11:59 PM CDT Hospital Encounter [facility] [address] [facility] [address] [place] [phone] Cyn Carrera MD History of total replacement of left ankle; Chronic pain of left ankle Discharge Disposition: Discharge to home or self care 12/23/2024 Telephone Radiology - [address] [facility] [address] [place] [address] Melina Nelson, 12/17/2024 Orders Only [facility] Medicine Orthopaedic Surgery [address] [facility] 2nd [address] [place] [address] Karen Monroe MD History of total replacement of left ankle (Primary Dx); Chronic pain of left ankle 12/14/2024 8:53 AM CDT - 12/14/2024 11:59 PM CDT Hospital Encounter [facility] [address] [place] [address] Chronic pain of left ankle; History of total replacement of left ankle Discharge Disposition: Discharge to home or self care from Last 3 Months Surgical History Surgery Date Site/Laterality Comments FLUORO GUIDED INJECTION ANKLE LEFT 12/26/2024 Left Medical History Medical History Date Comments Hx [...] History of total bilateral knee replacement 04/18 &11/2020 H/O shoulder replacement 09/2003 RIGHT History [...] on file 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 Gender Identity Not on file Sexual Orientation Not on file Occupation Industry Job Start Date Job End Date RETIRED Not on file Not on file Not on file Last Filed Vital Signs Vital Sign Reading Time Taken Comments Blood Pressure 126/86 02/05/2025 1:21 PM CDT Pulse 100 02/05/2025 1:21 PM CDT Temperature - - Respiratory Rate - - Oxygen Saturation 96% 02/05/2025 1:21 PM CDT Inhaled Oxygen Concentration - - Weight 58.1 kg (128 lb) 02/05/2025 1:21 PM CDT Height 165.1 cm (5' 5) 02/05/2025 1:21 PM CDT Body Mass Index 21.3 02/05/2025 1:21 PM CDT Plan of Treatment Health Maintenance Due [...] Procedure Name Priority Date/Time Associated Diagnosis Comments EGFR Routine 02/05/2025 2:00 PM CDT Abdominal pain, unspecified abdominal location DIFFERENTIAL AUTO Routine 02/05/2025 2:0 0 PM CDT Abdominal pain, unspecified abdominal location CBC WITH AUTO DIFFERENTIAL Routine 02/05/2025 2:00 PM CDT Abdominal pain, unspecified abdominal location COMPREHENSIVE METABOLIC PANEL Routine 02/05/2025 2:00 PM CDT Abdominal pain, unspecified abdominal location LIPASE Routine 02/05/2025 2:00 PM CDT Abdominal pain, unspecified abdominal location TISSUE TRANSGLUTAMINASE, IGA Routine 02/05/2025 2:00 PM CDT Abdominal pain, unspecified abdominal location IGA Routine 02/05/2025 2:00 PM CDT Abdominal pain, unspecified abdominal location FLUORO GUIDED INJECTION ANKLE LEFT Schedule Routine, Read Routine (OP Routine) 12/26/2024 9:29 AM CDT History of total replacement of left ankle Chronic pain of left ankle CT ANKLE LEFT WO CONTRAST Schedule Routine, Read Routine (OP Routine) 12/14/2024 9:09 AM CDT Chronic pain of left ankle History of total replacement of left ankle from Last 3 Months Results * eGFR (02/05/2025 2:00 PM CDT) [facility] eGFR >90 >=60 mL/min/1. 73 m2 Comment: Interpretive Data Reference Interval Normal >/= 90 mL/min/1.73m2 Mildly decreased* 60 - 89 mL/min/1.73m2 Mildly to moderately decreased 45 - 59 mL/min/1.73m2 Moderately to severely decreased 30 - 44 mL/min/1.73m2 Severely decreased 15 - 29 mL/min/1.73m2 Kidney Failure < 15 mL/min/1.73m2 *Relative to young adult level Estimated glomerular filtration rate is determined by the 2020 CKD-EPI equation recommended by the National Kidney Foundation (A Unifying Approach to GFR Estimation: Recommendations of the NKF-ASK Task Force on Reassessing the Inclusion of Race in Diagnosing Kidney Disease, JASN 2020). The CKD-EPI equation should not be used for patients with unstable renal function and has not been validated in children and those over 70. Current interpretive data was last reviewed 2021. Blood 02/05/2025 2:00 PM CDT 02/05/2025 6:19 PM CDT us Sridhar Patel MD LAB BLOOD ORDERABLES Final R esult [facility] [address] [facility] Department [place] [address] * Differential, auto (02/05/2025 2:00 PM CDT) [facility] Neutrophil abs 2.28 1.50 - 6.50 K/cumm Imm gran abs 0.02 0.00 - 0.10 K/cumm [facility] Lymphocyte abs 1.40 0.80 - 3.30 K/cumm [facility] Monocyte abs 0.40 0.20 - 0.80 K/cumm [facility] Eosinophil abs 0.04 0.00 - 0.50 K/cumm [facility] Basophil abs 0.04 0.00 - 0.10 K/cumm [facility] Neutrophil pct 54.4 % [facility] Comment: Interpretive Data Percent cell count reference ranges are not reported, since discordance with absolute values may lead to misinterpretation of CBC data. Current Interpretive Data was last revised on 2017. Imm gran pct 0.5 % [facility] Comment: Interpretive Data Percent cell count reference ranges are not reported, since discordance with absolute values may lead to misinterpretation of CBC data. Current Interpretive Data was last revised on 2017. Lymphocyte pct 33.5 % [facility] Comment: Interpretive Data Percent cell count reference ranges are not reported, since discordance with absolute values may lead to misinterpretation of CBC data. Current Interpretive Data was last revised on 2017. Monocyte pct 9.6 % [facility] Comment: Interpretive Data Percent cell count reference ranges are not reported, since discordance with absolute values may lead to misinterpretation of CBC data. Current Interpretive Data was last revised on 2017. Eosinophil pct 1.0 % [facility] Comment: Interpretive Data Percent cell count reference ranges are not reported, since discordance with absolute values may lead to misinterpretation of CBC data. Current Interpretive Data was last revised on 2017. Basophil pct 1.0 % [facility] Comment: Interpretive Data Percent cell count reference ranges are not reported, since discordance with absolute values may lead to misinterpretation of CBC data. Current Interpretive Data was last revised on 2017. Blood 02/05/2025 2:00 PM CDT 02/05/2025 6:19 PM CDT Sridhar Patel MD LAB BLOOD ORDERABLES Final R esult [facility] [address] [facility] Department of Laboratories [place], [place] [phone] * (ABNORMAL) CBC with auto differential (02/05/2025 2:00 PM CDT) WBC 4.18 3.80 - 9.90 K/cumm Hgb 11.7(L) 11.9 - 15.5 g/dL [facility] Hct 36.4 35.6 - 45.5 % [facility] Plt 286 150 - 400 K/cumm [facility] MPV 10.0 9.1 - 12.3 fL [facility] RBC 3.47(L) 3.90 - 5.20 M/cumm [facility] MCV 104.9(H) 81.3 - 96.4 fL [facility] MCH 33.7(H) 27.1 - 33.3 pg [facility] MCHC 32.1(L) 32.3 - 35.7 g/dL [facility] RDW CV 13.2 11.1 - 14.9 % [facility] RDW SD 50.6(H) 35.7 - 48.1 fL [facility] NRBC abs 0.00 0.00 - 0.01 K/cumm [facility] Blood 02/05/2025 2:00 PM CDT 02/05/2025 6:19 PM CDT Sridhar Patel MD LAB BLOOD ORDERABLES Final R esult Performing Organization Address [facility] Co de Phone Number [address] [place] [address] * Tissue transglutaminase IgA (TGG-IgA Ab) (02/05/2025 2:00 PM CDT) [facility] TTG ab, IgA <0.5 <=14.9 units/mL Comment: Interpretive data Negative: <15 units/mL Positive: > or equal to 15 units/mL Current interpretive data was last revised on 2016. Testing performed by: [facility], [address] [place] [address] Blood 02/05/2025 2:00 PM CDT 02/05/2025 9:33 PM CDT Sridhar Patel MD LAB BLOOD ORDERABLES Final R esult Performing Organization Address City/[facility]/ZIP Co de Phone Number [address] [place] [address] * Lipase (02/05/2025 2:00 PM CDT) Pathologist [facility] Lipase 30 10 - 99 Units/L Blood 02/05/2025 2:00 PM CDT 02/05/2025 6:19 PM CDT Sridhar Patel MD LAB BLOOD ORDERABLES Final R esult Performing Organization Address [facility] Co de Phone Number [address] [address] * IgA (02/05/2025 2:00 PM CDT) Pathologist [facility] Immunoglobulin A 130 70 - 400 mg/dL Blood 02/05/2025 2:00 PM CDT 02/05/2025 6:19 PM CDT Sridhar Patel MD LAB BLOOD ORDERABLES [facility] Performing Organization Address [facility] de Phone Number [address] [address] * (ABNORMAL) Comprehensive metabolic panel (02/05/2025 2:00 PM CDT) Pathologist [facility] Sodium 136 135 - 145 mmol/L Potassium, pl 4.6 3.3 - 4.9 mmol/L [facility] Chloride 98 97 - 110 mmol/L [facility] CO2 28 22 - 32 mmol/L [facility] Anion gap 10 2 - 15 mmol/L [facility] BUN 13 6 - 25 mg/dL [facility] Creatinine 0.57(L) 0.60 - 1.10 mg/dL [facility] Glucose 92 70 - 199 mg/dL [facility] Comment: Interpretive Data Fasting glucose >/= 126 mg/dl is diagnostic for diabetes. Fasting is defined as no caloric intake for at least 8 hours. Fasting glucose between 100 mg/dl to 125 mg/dl is diagnostic of prediabetes. In a patient with classic symptoms of hyperglycemia or hyperglycemic crisis, a random glucose >/= 200 mg/dl is diagnostic for diabetes. In the absence of unequivocal hyperglycemia, results should be confirmed by repeat testing. The classification and Diagnosis of Diabetes Diabetes Care 202; 46: S19-S40. Current interpretive data was last revised 2022. Calcium 10.3 8.5 - 10.3 mg/dL [facility] Bilirubin, total 0.5 0.1 - 1.2 mg/dL [facility] Protein, pl 7.4 6.5 - 8.5 g/dL [facility] Albumin 5.0 3.5 - 5.0 g/dL [facility] Alk phos 81 40 - 130 Units/L [facility] ALT 22 7 - 45 Units/L [facility] AST 39 10 - 45 Units/L [facility] Blood 02/05/2025 2:00 PM CDT 02/05/2025 6:19 PM CDT us Sridhar Patel MD LAB BLOOD ORDERABLES Final R esult Performing Organization Address [facility] Co de Phone Number [facility] [address] [facility] Department [place] [address] * FL Fluoro Guided Injection Ankle Left (12/26/2024 9:29 AM CDT) Narrative [email or web address] - 12/26/2024 9:29 AM CDT The images from this study are not interpreted by Radiology. Please refer to the physician's procedure / OR operative note. us Karen Monroe MD IMG FLUOROSCOPY PROCEDURES Final Result Performing Organization Address [facility] Co de Phone Number [email or web address] * CT Ankle Left WO Contrast (12/14/2024 9:09 AM CDT) Anatomical Region Laterality Modality Ankle Left Computed Tomogra phy 12/14/2024 3:05 PM CDT Impressions 12/14/2024 3:05 PM CDT 1. Left total ankle arthroplasty in near-anatomic alignment with slightly increased osteolysis along the talar component. 2. 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 Electronically signed by: Jordan Khan M.D. Narrative 12/14/2024 3:05 PM CDT EXAMINATION: CT ANKLE LEFT WO CONTRAST HISTORY: 69 years-old Female with left ankle pain, replacement. TECHNIQUE: Transaxial computed tomographic images of the left ankle were obtained without the use of intravenous contrast. Coronal and sagittal reformations were performed and also reviewed. COMPARISON: 08/09/2021 FINDINGS: Again seen are postsurgical changes of left total ankle arthroplasty, which is in near-anatomic position. No evidence of acute periprosthetic fracture. Components are in grossly similar alignment to 12/14/2024. Suggested osteolysis about the tibial tray is not significantly changed from 08/09/2021. There is slightly increased osteolysis slight cystic change along the anteromedial aspect of the tibial component. Moderate subtalar joint osteoarthritis and moderate to severe midfoot/hindfoot osteoarthritis is also similar. There is no acute fracture. Heterotopic ossification is noted in the peroneal tendons at the level of the lateral malleolus. Ankle joint effusion is present. Procedure Note Jordan Khan MD - 12/14/2024 EXAMINATION: CT ANKLE LEFT WO CONTRAST HISTORY: 69 years-old Female with left ankle pain, replacement. TECHNIQUE: Transaxial computed tomographic images of the left ankle were obtained without the use of intravenous contrast. Coronal and sagittal reformations were performed and also reviewed. COMPARISON: 08/09/2021 FINDINGS: Again seen are postsurgical changes of left total ankle arthroplasty, which is in near-anatomic position. No evidence of acute periprosthetic fracture. Components are in grossly similar alignment to 12/14/2024. Suggested osteolysis about the tibial tray is not significantly changed from 08/09/2021. There is slightly increased osteolysis slight cystic change along the anteromedial aspect of the tibial component. Moderate subtalar joint osteoarthritis and moderate to severe midfoot/hindfoot osteoarthritis is also similar. There is no acute fracture. Heterotopic ossification is noted in the peroneal tendons at the level of the lateral malleolus. Ankle joint effusion is present. IMPRESSION: 1. Left total ankle arthroplasty in near-anatomic alignment with slightly increased osteolysis along the talar component. 2. 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 Electronically signed by: Jordan Khan M.D. Karen Monroe MD IMG CT PROCEDURES Final Re sult from Last 3 Months Insurance AETNA MEDICARE [facility] OPEN ACCESS AETNA MEDICARE Care Teams Fruit Harvester Relationship Specialty Start Date End Date Krunal Sarmiento DO [address] [place] [address] PCP - General Family Medicine 07/01/21
--- OUTSIDE RECORDS SUMMARY | 2025-02-17 08:25 | XMS_ITS | Encounter Summary ---
Author Organization [facility] Address 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
--- OUTSIDE RECORDS SUMMARY | 2025-02-17 08:25 | XMS_ITS | Patient Health Record ---
Author Organization [facility] [facility] [facility] sarah Address [address] [facility] [address] [place], [place] [address] Care Team Providers Care Hospitality Host Name Role Phone Lakesha Flor Unavailable [phone] ALLERGIES Allergen (clinical drug ingredient) Drug/Non Drug [...] MED (V58.69) Active confirmed Long-term drug therapy (011251388) Problem Rheumatoid Arthritis (714.0) Active confirmed Rheumatoid arthritis (87113616) PLAN OF TREATMENT Pending Test Test Name Order Date T4 Free 09/23/2008 TSH 09/23/2008 C-Reactive Protein, Quant 09/05/2008 C-Reactive Protein, Quant 09/23/2008 Insurance Providers Payer Name Payer Address Payer Phone Subscriber Number Group Number Insured Name Patient Relationship to Insured Coverage Start Date Coverage End Date [employer] OPEN ACCESS [address] [place] [address] [id number] ÁLVARO TEJADA Self - patient is the insured 7 MEDICAL (GENERAL) HISTORY Medical History History ICD Code sinus problems Neck pain bronchitis knee pain Surgical History Surgery Date(Month/Year) T& A 1995 wrist surgery 1994 multiple knee surgery 1994 synovectomy lashon knees 1987 synovectomy lashon knees 1969 hip replacement (both hips) 2007 Right knee 2010
--- OUTSIDE RECORDS SUMMARY | 2025-02-17 08:25 | XMS_ITS | Clinical Summary ---
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 Pulse 71 02/28/2024 4:30 PM DIE SINKING MACHINE OPERATOR Temperature 37.1 C (98.8 F) 02/28/2024 4:30 PM DIE SINKING MACHINE OPERATOR Respiratory Rate 16 02/28/2024 4:30 PM DIE SINKING MACHINE OPERATOR Oxygen Saturation 92% 02/28/2024 4:30 PM DIE SINKING MACHINE OPERATOR Inhaled Oxygen Concentration - - Weight 57.5 kg (126 lb 12.2 oz) 024 10:45 AM DIE SINKING MACHINE OPERATOR Height 166.4 cm (5' 5.5) 02/28/2024 10 :45 AM DIE SINKING MACHINE OPERATOR Body Mass Index 20.77 02/28/2024 10:45 AM DIE SINKING MACHINE OPERATOR Plan of Treatment Health Maintenance Due Date Last Done Comments Colorectal Cancer Screening Colonoscopy (10 Years) 1957 Hepatitis C 11/22/1975 DTaP, Tdap and Td Vaccines ( 1 - Tdap) 1976 Mammogram Screening 1997 Pneumococcal Vaccine: 50+ Ye ars (1 of 1 - PCV) 11/22/2007 Zoster Vaccines (1 of 2) 11/22/2007 Annual Medicare Wellness Visit 2022 Dexa Scan (General) 2022 COVID-19 Vaccine (2 - 2024-2 6 season) 2024 09/04/2020 Influenza Adult (#1) 2025 RSV Immunization or 60+ Years (1 - 1-dose 75+ series) 2032 Hepatitis A Vaccines Aged Out No long er eligible based on patient's age to complete this topic Meningococcal B Vaccine Aged Out No l onger eligible based on patient's age to complete this topic Meningococcal Vaccine Aged Out No reese reji eligible based on patient's age to complete this topic RSV Immunizations Under 20 Months Aged Out No longer eligible based on patient's age to complete this topic Medical Devices Implanted Type Area Plate Shop Helper Device Identifier Shelf Expiration Date Model / Serial / Lot Cement Bone Refobacin Sterile Latex Free Disposable - [id number] Implanted:Qty : 2 on 11/02/2021 by Gilberto Ponce MD at [facility] Cement Implant Right: Knee [employer] 09/15/2023 [id number] / / Component Tibial Stemmed Porous Megan Size 5 - [id number] Implanted:Qty : 1 on 11/02/2021 by Gilberto Ponce MD at [facility] Knee Components Right: Knee [employer] [id number] 01/04/2025 [id number] / / [id number] Stem Megan Femur Ext 11 X 130mm Fluted - [id number] Implanted:Qty : 1 on 11/02/2021 by Gilberto Ponce MD at [facility] Knee Components Right: Knee [employer] [id number] 06/14/2028 [id number] / / [id number] Stem Megan Tibial Ext 10 X 145mm Str - [id number] Implanted:Qty : 1 on 11/02/2021 by Gilberto Ponce MD at [facility] Knee Components Right: Knee [employer] [id number] 10/15/2027 [id number] / / [id number] Stent Ureteral Contour Vl 4.8fr X 22-30cm - [id number] Implanted:Qty : 1 on 11/08/2023 by Clyde Tom MD at [facility] Stent Right: Ureter [employer] [id number] 09/04/2026 [id number] / / [id number] Anti-Rotation Screw Implanted:Qty : 1 on 11/02/2021 by Gilberto Ponce MD at [facility] Right: Knee [employer] 09/25/[id number] / / Rotating Hinge Knee Femoral Component Implanted:Qty : 1 on 11/02/2021 by Gilberto Ponce MD at [facility] Right: Knee [employer] [id number] 09/14/2024 / / [id number] Articular Surface Implanted:Qty : 1 on 11/02/2021 by Gilberto Ponce MD at [facility] Right: Knee [employer] [id number] 06/28/2025 / / [id number] Femoral Metaphyseal Cone Implanted:Qty : 1 on 11/02/2021 by Gilberto Ponce MD at [facility] Right: Knee [employer] [id number] 10/04/2030 [id number] / / [id number] Tibia Central Cone Implanted:Qty : 1 on 11/02/2021 by Gilberto Ponce MD at [facility] Right: Knee [employer] [id number] 11/16/2029 [id number] 08 / / [id number] Explanted Type Area Plate Shop Helper Device Identifier Shelf Expiration Date Model / Serial / Lot System Bone Cement Clearmix 1 2 - [id number] Explanted:Qty: 1 on 11/02/2021 by Gilberto Ponce MD at [facility] Cement Implant Right: Knee [employer] [id number] / / 2mm Set Screw Bilingual Research Interviewer Explanted:Qty: 1 on 11/02/2021 by Gilberto Ponce MD at [facility] Right: Knee [employer] [id number] / / Insurance AETNA MEDICARE Advance Directives * Full Code (Latest Code Status on File) Date Activated Date Inactivated Comments 11/02/2021 6:57 PM 11/03/2021 7:03 PM Care Teams General Clerk Relationship Specialty Start Date End Date Krunal Sarmiento DO [address] [place] [address] PCP - General FAMILY PRACTICE 10/08/19
--- OUTSIDE RECORDS SUMMARY | 2025-02-17 08:25 | XMS_ITS | Clinical Summary ---
Author Organization [address] Address [address] [place] [address] Care Team Providers Care Hat Measurer Name Role Phone Bart Connor MD Primary Care Provider Allergies Active Allergy Reactions [...] of left ankle with tendon involvement 02/05/2016 Encounters Date Type Department Care Team Description 02/07/2025 10:39 AM CDT - 02/07/2025 11:59 PM CDT Hospital Encounter [facility] [address] [place] [address] Delmar Sullivan MD Discharge Disposition: Home or Self Care 02/07/2025 7:51 AM CDT - 02/07/2025 11:59 PM CDT Hospital Encounter [facility] [address] [place] [address] Delmar Sullivan MD Discharge Disposition: Home or Self Care 02/05/2025 External Device Data STL ABSTRACTION Provider, Abstract 02/05/2025 External Device Data STL ABSTRACTION Provider, Abstract 02/04/2025 External Device Data ST[facility] ABSTRACTION Provider, Abstract 01/29/2025 10:09 AM CDT - 01/29/2025 11:59 PM CDT Hospital Encounter [facility] [address] [place] [address] Delmar Sullivan MD Discharge Disposition: Home or Self Care 01/21/2025 Transcribe Orders [facility] [address] [place] [address] Delmar Sullivan MD 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, initial encounter (Primary Dx) 01/16/2025 Transcribe Orders [facility] [address] [place] [address] Delmar Sullivan MD 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, initial encounter (Primary Dx) from Last 3 Months Family History Medical History Relation Name Comments [...] on file 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 Gender Identity Not on file Sexual Orientation [...] ) (1 - 1-dose 75+ series) 2032 Procedures Procedure Name Priority Date/Time Associated Diagnosis Comments NM BONE SCAN 3 PHASE Routine 02/07/2025 12:48 PM CDT 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, initial encounter XR FLUORO NEEDLE PLACEMENT Routine 01/29/2025 12:22 PM CDT 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, initial encounter from Last 3 Months Results * NM BONE SCAN 3 PHASE (02/07/2025 12:48 PM CDT) Anatomical Region Laterality Modality Nuclear Medicine 02/07/2025 12:4 8 PM CDT Impressions 02/07/2025 2:53 PM CDT IMPRESSION: Cellulitis with low-grade infection or loosening of the right knee arthroplasty Left knee arthroplasty shows some evidence of cellulitis and slight increased delayed uptake but much less than on the right DICTATION LOCATION: Location [address] [place] [address] 02/07/2025 2:53 PM CDT THREE-PHASE BONE SCAN OF THE KNEES DATE: 02/07/2025 12:48 PM HISTORY: pain due to total right knee replacement. 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, initial encounter; 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, initial encounter COMPARISON: None TECHNIQUE: Flow images over the knees anteriorly posteriorly after intravenous injection of 27 mCi of technetium 99m MDP. Blood pool images were followed by delayed images. Sagittal coronal and axial SPECT images were fused to CT images FINDINGS: Blood flow images show increased blood flow to the right knee compared to the left knee. Blood pool images show increased blood pool around the right knee arthroplasty. There is also some less blood pool activity around the left knee. Delayed images show increased uptake around the right knee much greater than the left knee. Both tibial and femoral components show increased uptake INCIDENTAL FINDINGS: None. Procedure Note Phill Medina MD - 02/07/2025 THREE-PHASE BONE SCAN OF THE KNEES DATE: 02/07/2025 12:48 PM HISTORY: pain due to total right knee replacement. 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, initial encounter; 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, initial encounter COMPARISON: None TECHNIQUE: Flow images over the knees anteriorly posteriorly after intravenous injection of 27 mCi of technetium 99m MDP. Blood pool images were followed by delayed images. Sagittal coronal and axial SPECT images were fused to CT images FINDINGS: Blood flow images show increased blood flow to the right knee compared to the left knee. Blood pool images show increased blood pool around the right knee arthroplasty. There is also some less blood pool activity around the left knee. Delayed images show increased uptake around the right knee much greater than the left knee. Both tibial and femoral components show increased uptake INCIDENTAL FINDINGS: None. IMPRESSION: Cellulitis with low-grade infection or loosening of the right knee arthroplasty Left knee arthroplasty shows some evidence of cellulitis and slight increased delayed uptake but much less than on the right DICTATION LOCATION: [address] [place] Delmar Sullivan MD NM ORDERABLES Final Result * XR FLUORO NEEDLE PLACEMENT (01/29/2025 12:22 PM CDT) Anatomical Region Laterality Modality Computed Radiogr aphy 01/29/2025 12:2 2 PM CDT Impressions 01/29/2025 2:34 PM CDT IMPRESSION: Attempted right knee joint aspiration, with no fluid obtained. DICTATION LOCATION: Location [address] [place] [address] 01/29/2025 2:34 PM CDT FLUOROSCOPIC-GUIDED RIGHT KNEE ASPIRATION DATE: 01/29/2025 12:22 PM HISTORY: Right knee replacement, right knee pain COMPARISON: None available FLUOROSCOPY TIME: 0.2 minutes REFERENCE AIR KERMA DOSE: 2.5 mGy TECHNIQUE AND FINDINGS: The risks of the procedure were explained to the patient, including bleeding, infection, and structural image, as well as the potential benefit of obtaining fluid from the joint. Informed consent was obtained. The patient was positioned supine on the fluoroscopy table. Correct patient, procedure, and laterality was confirmed. Under fluoroscopy, the intended access site was marked. The skin was prepped and draped in sterile fashion. Local anesthesia was obtained using 4 mL of 1% lidocaine. Next, a 20-gauge needle was advanced toward the right knee joint under fluoroscopic guidance using a lateral approach. The needle was positioned in 3 different spots at the expected location of the joint and suprapatellar recess in attempt to obtain joint fluid, however no fluid was able to be aspirated. There were no immediate complications following the procedure and there is no evidence of significant blood loss. Procedure Note Az Spicer MD - 01/29/2025 FLUOROSCOPIC-GUIDED RIGHT KNEE ASPIRATION DATE: 01/29/2025 12:22 PM HISTORY: Right knee replacement, right knee pain COMPARISON: None available FLUOROSCOPY TIME: 0.2 minutes REFERENCE AIR KERMA DOSE: 2.5 mGy TECHNIQUE AND FINDINGS: The risks of the procedure were explained to the patient, including bleeding, infection, and structural image, as well as the potential benefit of obtaining fluid from the joint. Informed consent was obtained. The patient was positioned supine on the fluoroscopy table. Correct patient, procedure, and laterality was confirmed. Under fluoroscopy, the intended access site was marked. The skin was prepped and draped in sterile fashion. Local anesthesia was obtained using 4 mL of 1% lidocaine. Next, a 20-gauge needle was advanced toward the right knee joint under fluoroscopic guidance using a lateral approach. The needle was positioned in 3 different spots at the expected location of the joint and suprapatellar recess in attempt to obtain joint fluid, however no fluid was able to be aspirated. There were no immediate complications following the procedure and there is no evidence of significant blood loss. IMPRESSION: Attempted right knee joint aspiration, with no fluid obtained. DICTATION LOCATION: Location [address] [place] [address] Delmar Sullivan MD DIAGNOSTIC IMAGING OR DERABLES Final Result from Last 3 Months Insurance [employer] PPO MCR Advance Directives For more information, please contact: [phone] * Full Code (Latest Code Status on File) Date Activated Date Inactivated Comments 01/28/2016 9:25 AM 01/28/2016 3:07 PM * Full Code Date Activated Date Inactivated Comments 01/28/2016 8:24 AM 01/28/2016 9:25 AM Care Teams Hat Measurer Relationship Specialty Start Date End Date Bart Connor MD [facility] [place] [address] PCP - General Family Practice 01/13/16
--- OUTSIDE RECORDS SUMMARY | 2025-02-17 08:25 | XMS_ITS | Encounter Summary ---
Author Organization [employer] Address 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
--- NOTE | 2025-02-17 08:35 | ED.GENADULT ---
HPI - General Adult General Chief complaint: Nausea/Vomiting/Diarrhea Stated complaint: vomiting Time Seen by Provider: 02/17/25 08:34 Source: patient and EMS Mode of arrival: EMS History of Present Illness HPI narrative: 69 YEARS OLD WHITE FEMALE CAME TO THE ED FROM HOME BY AMBULANCE BECAUSE OF WITH JODIE STOOL X3 YESTERDAY, VOMITING X3 THIS MORNING WITH DRY HEAVE. PATIENT WAS SNEEZING FELT POP AT HER LOWER BACK AND COULD NOT WALK. SHE DENIES RADIATION OF PAIN, FEVER, CHILLS, SICK CONTACT. HISTORY OF HYPERTENSION AND ADVANCED RHEUMATOID ARTHRITIS. HISTORY OF HIP REPLACEMENT BILATERALLY, SHOULDER REPLACEMENT BILATERALLY, KNEE REPLACEMENT BILATERALLY AND LEFT ANKLE REPLACEMENT. Related Data Home Medications ?Medication ?Instructions ?Recorded ?Confirmed ?Last Taken ?Type cholecalciferol (vitamin D3) 125 125 mcg PO DAILY 05/27/19 07/18/24 10/01/23 History mcg (5,000 unit) capsule (Dialyvite Vitamin D) upadacitinib 15 mg tablet,extended 15 mg PO DAILY 10/22/19 07/18/24 10/04/23 History release 24 hr (Rinvoq) black cohosh 200 mg capsule 200 mg PO DAILY 11/20/23 07/18/24 Unknown History cholecalciferol (vitamin D3) 10 10 mcg PO DAILY 11/20/23 07/18/24 Unknown History mcg (400 unit) capsule cranberry 500 mg capsule 500 mg PO BID 11/20/23 07/18/24 Unknown History Allergies Allergy/AdvReac Type Severity Reaction Status Date / Time levofloxacin (Levaquin) Allergy Intermediate Unknown Verified 02/17/25 08:29 Penicillins Allergy Intermediate Unknown Verified 02/17/25 08:29 Sulfa (Sulfonamide Allergy Unknown Unknown Verified 02/17/25 08:29 Antibiotics) clindamycin AdvReac Severe Itching on Verified 02/17/25 08:29 scalp Cephalosporins AdvReac Mild Itching Verified 02/17/25 08:29 Mushroom AdvReac Intermediate ARTHRITIS Uncoded 11/20/23 10:55 SWELLS UP. PMFSH Past Medical History Medical History Abdominal pain Arthrofibrosis of knee joint Colon cancer screening Decreased appetite Dysphagia GERD with esophagitis History of revision of total replacement of right knee joint (~06/2010) Hypertension Nausea Pancreatitis Rheumatoid arthritis RLQ abdominal pain RUQ pain Surgical History Surgical History History of left ankle joint replacement (~08/2015) History of left hip replacement (~02/2008) History of left knee replacement (~11/2000) History of left shoulder replacement (~06/2011) History of total replacement of right shoulder joint (~09/2003) History of total right hip replacement (~01/2008) History of total right knee replacement (~04/2000) Family History Family History Other Cerebrovascular accident Diabetes mellitus Hypertension Social History Social History Smoking status: Never smoker Alcohol intake: never Substance use: never Substance use type: does not use Do You Feel Safe in your Home?: Yes Lack of Transportation: No Lack of Food: Never True Current Housing: I Have Housing Concerned About Future Housing: No Difficulty Paying Gas/Electric Bills: No Difficulty Paying for Meds: No Currently Unemployed: No Education: Bachelor's Degree Difficulty w/ Childcare or Family Care: No Living arrangements: with family Occupation/Education: unemployed Course Consultations Consultation #1: DR. SANTOYO HOSPITALIST AT [facility] WHO ACCEPTED PATIENT TRANSFER Date: 02/17/25 Time: 10:33 Vital Signs Vital signs: Vital Signs Temperature 37.2 C 02/17/25 08:19 Pulse Rate 81 02/17/25 08:19 Respiratory Rate 18 02/17/25 08:19 Blood Pressure 165/81 H 02/17/25 08:19 Pulse Oximetry 97 02/17/25 08:19 Oxygen Delivery Room Air 02/17/25 08:19 Temperature 37.2 C 02/17/25 09:00 Pulse Rate 80 02/17/25 10:00 Respiratory Rate 15 02/17/25 10:00 Blood Pressure 132/69 02/17/25 10:00 Pulse Oximetry 97 02/17/25 10:18 Oxygen Delivery Room Air 02/17/25 10:00 Medical Decision Making MDM Narrative Medical decision making narrative: PATIENT CAME WITH NAUSEA, VOMITING AND DIARRHEA, SNEEZED HARD, FELT POP AT THE LOWER BACK VITAL SIGNS SHOWING BLOOD PRESSURE 165/81 OTHERWISE WITHIN NORMAL LIMIT PHYSICAL EXAMINATION SHOWING DIFFUSE TENDERNESS ACROSS THE LUMBAR AREA DIFFERENTIAL DIAGNOSIS INCLUDE GASTROENTERITIS, STRAIN/SPRAIN OF THE LOWER BACK VERSUS COMPRESSION FRACTURE PATIENT HAVE LONG HISTORY OF ADVANCED RHEUMATOID ARTHRITIS. BLOOD WORKUP TODAY INCLUDES CBC, CMP SHOWED SODIUM [address] LUMBAR SPINE WITHOUT CONTRAST SHOWED ACUTE VERSUS SUBACUTE L3 BURST FRACTURE. TRANSFERRED TO [facility] FOR POSSIBLE KYPHOPLASTY. Differential Diagnosis Differential Diagnosis: ABOVE Vital Signs Vital Signs: Vital Signs Temperature 37.2 C 02/17/25 08:19 Pulse Rate 81 02/17/25 08:19 Respiratory Rate 18 02/17/25 08:19 Blood Pressure 165/81 H 02/17/25 08:19 Pulse Oximetry 97 02/17/25 08:19 Oxygen Delivery Room Air 02/17/25 08:19 Temperature 37.2 C 02/17/25 09:00 Pulse Rate 80 02/17/25 10:00 Respiratory Rate 15 02/17/25 10:00 Blood Pressure 132/69 02/17/25 10:00 Pulse Oximetry 97 02/17/25 10:18 Oxygen Delivery Room Air 02/17/25 10:00 Lab Data 02/17/25 08:48 02/17/25 08:48 Labs: Lab Results 02/17/25 Range/Units 08:48 WBC 5.3 (4.8-10.8) K/mm3 RBC 3.47 L (4.20-5.40) M/mm3 Hgb 11.8 (11.7-13.8) g/dL Hct 37.2 (35.0-42.0) % MCV 107.2 H (78.0-102.0) fL MCH 34.0 H (27.0-31.0) pg MCHC 31.7 L (32-36) g/dL RDW 12.8 (11.6-14.4) % Plt Count 196 (150-420) K/mm3 MPV 9.0 L (9.2-11.8) fl Immature Gran % (Auto) 0.9 H (0.0-0.0) % Neut % (Auto) 85.5 H (50.0-70.0) % Lymph % (Auto) 5.3 L (18.0-42.0) % Levy % (Auto) 7.7 (2.0-11.0) % Eos % (Auto) 0.2 L (1.0-6.0) % Baso % (Auto) 0.4 (0.0-1.0) % Lymph # (Auto) 0.28 L (1.10-4.50) K/mm3 Levy # (Auto) 0.41 (0.10-0.90) K/mm3 Eos # (Auto) 0.01 L (0.02-0.50) K/mm3 Baso # (Auto) 0.02 (0.00-0.10) K/mm3 Abs Immat Gran (auto) 0.05 H (0.00-0.00) K/mm3 Absolute Neuts (auto) 4.56 (1.70-7.20) K/mm3 Absolute Nucleated RBC 0.00 (0.00-0.00) K/mm3 Nucleated RBC % 0.0 (0-0.0) % Sodium 131 L (137-145) mmol/L Potassium 4.2 (3.4-5.0) mmol/L Chloride 97 L (98-107) mmol/L Carbon Dioxide 25 (22-30) mmol/L Anion Gap 9 (4-12) mmol/L BUN 9 (7-17) mg/dL Creatinine 0.52 L (0.7-1.0) mg/dL Estim Creat Clear Calc 76 ml/min Estimated GFR > 60 (59 - ) Glucose 118 H (65-110) mg/dL Calculated Osmolality 271 L (285-295) mOsm/kg Calcium 9.4 (8.4-10.2) mg/dL Total Bilirubin 1.7 H (0.2-1.3) mg/dL AST 49 H (14-36) U/L ALT 31 (6-35) U/L Alkaline Phosphatase 93 (38-126) U/L Total Protein 7.4 (6.3-8.2) g/dL Albumin 5.0 (3.5-5.1) g/dL Imaging Data Radiologist's impression: Impressions Lumbar Spine CT 02/17/25 09:23 IMPRESSION: 1. Acute versus subacute L3 burst fracture. 2. Severe lumbar spondylosis. Critical Care Time Critical Care Time Critical Care Time: No Discharge Plan Discharge Clinical Impression: Gastroenteritis, Burst fracture of lumbar vertebra Patient Disposition: Acute Care Hospital Condition: Stable Patient Language: Mongolian Prescriptions: No Action cholecalciferol (vitamin D3) [Dialyvite Vitamin D] 125 mcg (5,000 unit) capsule 125 mcg PO DAILY Rinvoq 15 mg tablet extended release 24 hr 15 mg PO DAILY duloxetine 60 mg capsule,delayed release(DR/EC) 60 mg PO DAILY Qty: 30 3RF cranberry 500 mg capsule 500 mg PO BID Rx Instructions: administer with meals cholecalciferol (vitamin D3) 10 mcg (400 unit) capsule 10 mcg PO DAILY black cohosh 200 mg capsule 200 mg PO DAILY fluticasone propionate 50 mcg/actuation spray,suspension See Rx Instructions .ROUTE .COMPLEX Qty: 16 0RF Dose Instruction: 1 SPRAY INTRANASALLY DAILY; ADMINISTER INTO EACH NOSTRIL Rx Instructions: 1 SPRAY INTRANASALLY DAILY; ADMINISTER INTO EACH NOSTRIL omeprazole 40 mg capsule,delayed release(DR/EC) See Rx Instructions .ROUTE .COMPLEX Qty: 180 0RF Dose Instruction: TAKE ONE CAPSULE BY MOUTH TWICE A DAY Rx Instructions: TAKE ONE CAPSULE BY MOUTH TWICE A DAY lisinopril 20 mg tablet See Rx Instructions .ROUTE .COMPLEX Qty: 90 3RF Dose Instruction: TAKE ONE TABLET BY MOUTH DAILY Rx Instructions: TAKE ONE TABLET BY MOUTH DAILY Follow-up/Referrals: Krunal Sarmiento DO [Primary Care Provider, Family Practice]
[2025-02-17 08:54] LABS: Hematocrit 37.2 % (35.0-42.0); Hemoglobin 11.8 g/dL (11.7-13.8); Immature Granulocyte Percent A 0.9 % (0.0-0.0); Lymphocytes Absolute Auto 0.28 K/mm3 (1.10-4.50); Mean Corpuscular HGB Conc 31.7 g/dL (32-36); Mean Corpuscular Hemoglobin 34.0 pg (27.0-31.0); Mean Corpuscular Volume 107.2 fL (78.0-102.0); Nucleated Red Blood Cells Absolute Auto 0.00 K/mm3 (0.00-0.00); Nucleated Red Blood Cells Perc 0.0 % (0-0.0); Platelet Count Result 196 K/mm3 (150-420); Red Blood Count 3.47 M/mm3 (4.20-5.40); White Blood Count 5.3 K/mm3 (4.8-10.8)
[2025-02-17 09:05] LABS: Alanine Aminotransferase 31 U/L (6-35); Albumin Level 5.0 g/dL (3.5-5.1); Alkaline Phosphatase 93 U/L (38-126); Anion Gap 9 mmol/L (4-12); Aspartate Amino Transferase 49 U/L (14-36); Bilirubin,Total 1.7 mg/dL (0.2-1.3); Blood Urea Nitrogen 9 mg/dL (7-17); Calcium 9.4 mg/dL (8.4-10.2); Carbon Dioxide 25 mmol/L (22-30); Chloride 97 mmol/L (98-107); Estimated CRCL calculation 76 ml/min; Estimated Glomerular Filt Rate > 60; Glucose 118 mg/dL (65-110); Osmolality Calculated 271 mOsm/kg (285-295); Potassium 4.2 mmol/L (3.4-5.0); Sodium 131 mmol/L (137-145); Total Protein 7.4 g/dL (6.3-8.2)
--- OUTSIDE RECORDS SUMMARY | 2025-02-17 09:10 | XMS_ITS | Encounter Summary ---
Author Organization [employer] Address 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
--- OUTSIDE RECORDS SUMMARY | 2025-02-17 09:10 | XMS_ITS | Data Portability ---
Author Organization [facility], [address] [place] [address] [place]rology ([place]) Address [address] [place] [address] Care Team Providers Care Technical Documentation Specialist Name Role Phone FOZIA GRAMAJO Primary Care Provider [phone] Assessment Encounter Date Assessment Date Assessment LastModified by Organization Details LastModified Time 02/09/2024 02/09/2024 Seropositive erosive rheumatoid arthritis. We [...] on this date of service including both tqgk-zr-wtzb and cfy-nffy-um-face time excluding any separately reportable services. [facility] Not available 02/10/2024 04:44:22 06/14/2024 06/14/2024 SUBJECTIVE: [...] significant decreased range of motion and hand dispersion mixer strength reduced. Elbows: Limited range of motion. [...] on this date of service including both wjui-rc-wayb and edp-jtzt-hu-face time excluding any separately reportable services. 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 She is maintained on Rinvoq 15 mg once daily monotherapy which she has tolerated without any reported complications. No febrile illnesses. No cardiovascular events, MACE events, or embolic events. She has [facility] her left ankle arthrodesis which has [...] with complications. Scheduled to follow up with [facility] Orthopedics. 5. Follow up in 4-5 months. I personally spent a total of 20 minutes on the patient on this date of service including both igat-ui-kilx and lnr-cfpr-la-face time excluding any separately reportable services. [email or web address] Not available 10/04/2024 10:27:43 01/31/2025 01/31/2025 1. Seropositive erosive rheumatoid arthritis - stable on Rinvoq 15 mg once daily monotherapy - Continue Rinvoq 15 mg once daily - Blood tests obtained/ordered today for ongoing drug monitoring - ACR COVID-19 guidelines and Oral Surveillance data reviewed and discussed with patient; patient expressed understanding 2. Right knee deformity with fibrosis/ankylosi s - Proceed with second orthopedic opinion regarding possible surgical intervention; evaluation scheduled - Monitor symptoms and functional status Follow-up in 4 months. Total time spent: 22 minutes (Tracked by [employer]) [email or web address] Not available 01/31/2025 10:16:04 Plan of Treatment Reminders Order Date Submit Date Provider Last Modified By Organization Details Last Modified Time Details Appointments Establish ed Patient 15.EST 2025 09:00A M Dr. Aristeo Kerr Not available Not available Not available Establish ed Patient 15.EST 2025 09:00A M Dr. Aristeo Kerr Not available Not available Not available Lab ALT (alanine aminotran sferase), serum or plasma 2024 025 [facility] Only - [facility] Laboratory, [address] [place] [address], [id number], 01/31/2025 12:44:00 AST/SGOT (aspartat e aminotran sferase), serum or plasma 2024 025 [facility] Only - [facility] Laboratory, [address] [place] [address], [id number], 01/31/2025 12:44:01 CBC w/ auto diff 2024 025 [facility] Only - [facility] Laboratory, [address] [place] [address], [id number], 01/31/2025 12:22:52 ALT (alanine aminotran sferase), serum or plasma 2024 025 [facility] Only - Wi Laboratory, [address] [place] [address], [id number], 10/29/2024 08:35:21 AST/SGOT (aspartat e aminotran sferase), serum or plasma [address] Laboratory, [address] [place] [address], [id number], 11/05/2024 16:47:32 CBC w/ auto diff [address] Laboratory, [address] [place] [address], [id number], 10/29/2024 08:35:21 ALT (alanine aminotran sferase), serum or plasma 2024 025 [facility] Only [facility] Laboratory, [address] [place] [address], 746[address], 06/14/2024 13:37:25 AST/SGOT (aspartat e aminotran sferase), serum or plasma 2024 025 [facility] - Wi Laboratory, [address] [place] [address], [id number], 06/14/2024 13:37:21 CBC w/ auto diff 2024 025 [facility], [address] [place] [address], [id number], 06/14/2024 12:58:33 ESR (erythroc yte sedimenta tion rate), blood 2024 025 [facility] Only - [facility] Laboratory, [address] [place] [address], [id number], 06/14/2024 13:15:20 C-reactiv e protein, quantitat shelly, serum or plasma 2024 025 [facility] Only - [facility] Laboratory, [address] [place] [address], [id number], 06/14/2024 13:37:23 Referral None recorded. Procedures None recorded. Surgeries None recorded. Imaging XR, lumbosacr al spine, 2 or 3 view 2024 025 [facility] Only - [facility] Radiology, [address] [place] [address], [id number], 06/14/2024 11:19:03 Medication Orders None recorded. Patient TargetsNo targets recorded. Patient InstructionsNo instructions recorded. Reason for Referral None Reported. Results Created Date Observation Date Name Description Value Unit Range Abnormal Flag Note LastModifiedBy Organization Detail LastModifiedTime 06/14/1906/14/2024 CBC w/ auto diff CBC with differential Not Available [facility] [address] [place] [address], [id number], 06/14/2024 12:58:33 06/14/19 25 06/14/2024 CBC w/ auto diff WBC 4.0 K/uL 3.8-11 .2 Not Available [facility] Only - [facility] [address] [place] [address], [id number], 06/14/2024 12:58:33 06/14/19 25 06/14/2024 CBC w/ auto diff RBC 3.76 M/uL 3.92-5 .10 low Not Available [facility] - [facility] [address] [place] [address], [id number], 06/14/2024 12:58:33 06/14/19 25 06/14/2024 CBC w/ auto diff HGB 12.5 g/dL 11.8-1 5.3 Not Available [facility] Only - [facility] [address] [place] [address], 68093, 06/14/2024 12:58:33 06/14/19 25 06/14/2024 CBC w/ auto diff HCT 38.7 % 36.5-4 4.8 Not Available [facility] Only - [facility] [address] [place] [address], [id number], 06/14/2024 12:58:33 06/14/19 25 06/14/2024 CBC w/ auto diff MCV 102.9 fL 80.0-9 9.0 high Not Available [facility] Only - [facility] [address] [place] [address], [id number], 06/14/2024 12:58:33 06/14/19 25 06/14/2024 CBC w/ auto diff MCH 33.2 pg 25.5-3 3.6 Not Available [facility] Only - [facility] [address] [place] [address], 31806, 06/14/2024 12:58:33 06/14/19 25 06/14/2024 CBC w/ auto diff MCHC 32.3 g/dL 32.0-3 6.0 Not Available [facility] Only - [facility] [address] [place] [address], [id number], 06/14/2024 12:58:33 06/14/19 25 06/14/2024 CBC w/ auto diff RDW-SD 52.5 fL 35.1 - 46.3 high Not Available [facility] Only - [facility] Laboratory [address] [place] [address], 45897, 06/14/2024 12:58:33 06/14/19 25 06/14/2024 CBC w/ auto diff plt 300 K/uL 130-40 0 Not Available [facility] Only - [facility] Laboratory [address] [place] [address], 24386, 06/14/2024 12:58:33 06/14/19 25 06/14/2024 CBC w/ auto diff MPV 9.4 fL 9.3-12 .8 Not Available [facility] Only - [facility] [address] [place] [address], 70519, 06/14/2024 12:58:33 06/14/19 25 06/14/2024 CBC w/ auto diff natacha% 57.9 % not estab Not Available [facility] Only - [facility] Laboratory [address] [place] [address], 18656, 06/14/2024 12:58:33 06/14/19 25 06/14/2024 CBC w/ auto diff lym% 30.7 % not estab Not Available [facility] Only - [facility] [address] [place] [address], 57606, 06/14/2024 12:58:33 06/14/19 25 06/14/2024 CBC w/ auto diff mono% 9.1 % not estab Not Available [facility] [address] [place] [address], 54731, 06/14/2024 12:58:33 06/14/19 25 06/14/2024 CBC w/ auto diff eos% 1.5 % not estab Not Available [facility] [address] [place] [address], 89224, 06/14/2024 12:58:33 06/14/19 25 06/14/2024 CBC w/ auto diff baso% 0.5 % not estab Not Available [facility] [address] [place] [address], 32095, 06/14/2024 12:58:33 06/14/19 25 06/14/2024 CBC w/ auto diff abs natacha 2.3 K/uL 1.8-7. 5 Not Available [facility] [address] [place] [address], 31664, 06/14/2024 12:58:33 06/14/19 25 06/14/2024 CBC w/ auto diff abs lym 1.2 K/uL 1.1-3. 3 Not Available [facility] [address] [place] [address], [id number], 06/14/2024 12:58:33 06/14/19 25 06/14/2024 CBC w/ auto diff abs mono 0.4 K/uL 0.1-1. 0 Not Available [facility] [address] [place] [address], 65996, 06/14/2024 12:58:33 06/14/19 25 06/14/2024 CBC w/ auto diff abs eos 0.1 K/uL 0.0-0. 7 Not Available [facility] [address] [place] [address], 85794, 06/14/2024 12:58:33 06/14/19 25 06/14/2024 CBC w/ auto diff abs baso 0.0 K/uL 0.0-0. 2 Not Available [facility] - [facility] [address] [place] [address], 94930, 06/14/2024 12:58:33 06/14/19 25 06/14/2024 CBC w/ auto diff imm. gran % 0.3 % 0-5 Not Available [facility] - [facility] [address] [place] [address], 73016, 06/14/2024 12:58:33 06/14/19 25 06/14/2024 CBC w/ auto diff NRBC % 0.0 % 0.0-0. 2 Not Available [facility] [address] [place] [address], 18236, 06/14/2024 12:58:33 06/14/19 25 06/14/2024 ESR (eryt hrocy te sedim entat ion rate) , blood sed rate 17 mm/HR 0 - 30 Not Available [facility] [address] [place] [address], [id number], 06/14/2024 13:15:20 06/14/19 25 06/14/2024 AST/S GOT (aspa rtate amino trans feras e), serum or plasm a AST (SGOT) high Not Available [facility] [address] [place] [address], 89017, 06/14/2024 13:37:21 06/14/19 25 06/14/2024 AST/S GOT (aspa rtate amino trans feras e), serum or plasm a AST (SGOT) 47 U/L 10-40 high Not Available [facility] - [facility] [address] [place] [address], 23480, 06/14/2024 13:37:21 06/14/19 25 06/14/2024 C-eliseo ctive prote in, quant itati ve, serum or plasm a CRP Not Available [facility] - [facility] [address] [place] [address], 77137, 06/14/2024 13:37:23 06/14/19 25 06/14/2024 C-eliseo ctive prote in, quant itati ve, serum or plasm a CRP <0.5 mg/dL <0.4-0 .5 Not Available [facility] [address] [place] [address], 18429, 06/14/2024 13:37:23 06/14/19 25 06/14/2024 ALT (rhina ine amino trans feras e), serum or plasm a ALT (SGPT) high Not Available [facility] [address] [place] [address], [id number], 06/14/2024 13:37:25 06/14/19 25 06/14/2024 ALT (rhina ine amino trans feras e), serum or plasm a ALT (SGPT) 39 U/L 8-35 high Not Available [facility] [address] [place] [address], 49157, 06/14/2024 13:37:25 02/01/20 25 01/31/2025 CBC w/ auto diff CBC with differential Not Available [facility] [address] [place] [address], 17744, 01/31/2025 12:22:52 02/01/20 25 01/31/2025 CBC w/ auto diff WBC 4.1 K/uL 3.8-11 .2 Not Available [facility] [address] [place] [address], 95045, 01/31/2025 12:22:52 02/01/20 25 01/31/2025 CBC w/ auto diff RBC 3.73 M/uL 3.92-5 .10 low Not Available [facility] Only - [facility] [address] [place] [address], 36980, 01/31/2025 12:22:52 02/01/2001/31/2025 CBC w/ auto diff HGB 12.5 g/dL 11.8-1 5.3 Not Available [facility] Only - [facility] [address] [place] [address], 00082, 01/31/2025 12:22:52 02/01/2001/31/2025 CBC w/ auto diff HCT 38.7 % 36.5-4 4.8 Not Available [facility] - [facility] [address] [place] [address], 14126, 01/31/2025 12:22:52 02/01/20 25 01/31/2025 CBC w/ auto diff MCV 103.8 fL 80.0-9 9.0 high Not Available [facility] - [facility] [address] [place] [address], 04249, 01/31/2025 12:22:52 02/01/20 25 01/31/2025 CBC w/ auto diff MCH 33.5 pg 25.5-3 3.6 Not Available [facility] - [facility] [address] [place] [address], 88063, 01/31/2025 12:22:52 02/01/20 25 01/31/2025 CBC w/ auto diff MCHC 32.3 g/dL 32.0-3 6.0 Not Available [facility] - [facility] [address] [place] [address], 57273, 01/31/2025 12:22:52 02/01/20 25 01/31/2025 CBC w/ auto diff RDW-SD 51.5 fL 35.1 - 46.3 high Not Available [facility] [address] [place] [address], 60600, 01/31/2025 12:22:52 02/01/2001/31/2025 CBC w/ auto diff plt 300 K/uL 130-40 0 Not Available [facility] [address] [place] [address], 22396, 01/31/2025 12:22:52 02/01/2001/31/2025 CBC w/ auto diff MPV 9.0 fL 9.3-12 .8 low Not Available [facility] [address] [place] [address], 91226, 01/31/2025 12:22:52 02/01/2001/31/2025 CBC w/ auto diff natacha% 61.1 % not estab Not Available [facility] [address] [place] [address], 06930, 01/31/2025 12:22:52 02/01/2001/31/2025 CBC w/ auto diff lym% 27.6 % not estab Not Available [facility] [address] [place] [address], 52556, 01/31/2025 12:22:52 02/01/2001/31/2025 CBC w/ auto diff mono% 9.4 % not estab Not Available [facility] [address] [place] [address], [id number], 01/31/2025 12:22:52 02/01/2001/31/2025 CBC w/ auto diff eos% 0.5 % not estab Not Available [facility] - [facility] [address] [place] [address], 46049, 01/31/2025 12:22:52 02/01/2001/31/2025 CBC w/ auto diff baso% 0.7 % not estab Not Available [facility] Only - [facility] [address] [place] [address], 94361, 01/31/2025 12:22:52 02/01/20 25 01/31/2025 CBC w/ auto diff abs natacha 2.5 K/uL 1.8-7. 5 Not Available [facility] [address] [place] [address], 90965, 01/31/2025 12:22:52 02/01/20 25 01/31/2025 CBC w/ auto diff abs lym 1.1 K/uL 1.1-3. 3 Not Available [facility] [address] [place] [address], 33982, 01/31/2025 12:22:52 02/01/2001/31/2025 CBC w/ auto diff abs mono 0.4 K/uL 0.1-1. 0 Not Available [facility] [address] [place] [address], 03315, 01/31/2025 12:22:52 02/01/20 25 01/31/2025 CBC w/ auto diff abs eos 0.0 K/uL 0.0-0. 7 Not Available [facility] [address] [place] [address], 64765, 01/31/2025 12:22:52 02/01/20 25 01/31/2025 CBC w/ auto diff abs baso 0.0 K/uL 0.0-0. 2 Not Available [facility] [address] [place] [address], 39160, 01/31/2025 12:22:52 02/01/20 25 01/31/2025 CBC w/ auto diff imm. gran % 0.7 % 0-5 Not Available [facility] [address] [place] [address], 76132, 01/31/2025 12:22:52 02/01/20 25 01/31/2025 CBC w/ auto diff NRBC % 0.0 % 0.0-0. 2 Not Available [facility] [address] [place] [address], 52315, 01/31/2025 12:22:52 02/01/2001/31/2025 ALT (rhina ine amino trans feras e), serum or plasm a ALT (SGPT) Not Available [facility] [address] [place] [address], 69417, 01/31/2025 12:44:00 02/01/20 25 01/31/2025 ALT (rhina ine amino trans feras e), serum or plasm a ALT (SGPT) 20 U/L 8-35 Not Available [facility] [address] [place] [address], 15105, 01/31/2025 12:44:00 02/01/2001/31/2025 AST/S GOT (aspa rtate amino trans feras e), serum or plasm a AST (SGOT) Not Available [facility] [address] [place] [address], 19071, 01/31/2025 12:44:01 02/01/2001/31/2025 AST/S GOT (aspa rtate amino trans feras e), serum or plasm a AST (SGOT) 35 U/L 10-40 Not Available [facility] [address] [place] [address], 59996, 01/31/2025 12:44:01 06/14/19 25 06/14/2024 XR, lumbo sacra l spine , 2 or [address] [address] Teleph one [phone] Name: Qing Walton 2224Ex am Date: 2024 [...] MRI. Electr onical ly signed in [place] cri by: RAND Goldberg MD on:05/19 10:16 AM cc: Page PAGE 1 of [facility] 1 [facility] Only - [facility] [address] [place] [address], 060[address], 06/17/2024 08:52:38 08/14/19 25 11/17/2021 imagi ng/di agnos tic resul t No [...] Lumbosacral Spine, 2 Or 3 View : [address] [address] Name: Qing Mcnair Date: 06/14/2024 Age: 68Physician: [...] is necessary consider MRI. Electronically signed in Power[employer] by: RAND GOMEZ MD on:06/14/2024 10:16 AM cc: Page PAGE 1 of [facility] 1 Aristeo Kerr MD [address] [place] [address], [phone], [facility] 06/17/2024 08:52:38 Problems Name Problem SNOMED Code Status Onset Date Resolution Date Notes Provider Name and Address Organization Details Recorded Time Seropositive erosive rheumatoid arthritis 347881581 Active 2023 Marti Bowen [facility], [facility] 4 13:27:03 Lumbar radiculopathy 122202154 Active 2024 Aristeo Kerr MD [address] [place] [address], [phone], [facility] 5 10:20:20 Seropositive rheumatoid arthritis 830339421 Active 2024 Aristeo Kerr MD [address] [place] [address], [phone], [facility] 5 10:28:57 Problem Notes None recorded. Medical Equipment None Reported. Allergies Allergen ID Allergen Name Allergen Category Reaction Reaction Severity Criticality Documentation Date Start Date Code Code System Note Provider Name and Address Organization Details Recorded Time [id number] mercapto urine medicatio n Not available Not available Not available 05/17/20232016 103 RxNorm Comme nt: Annot ation s: FAUSTINO HUNG, YOSELIN E 2016 1:25P M leuko penia ; ; Not Available [facility] 4 04:14:22 8260317 hydroxych loroquine sulfate medicatio n dizziness Not available Not available 05/17/20232016 14385 2 RxNorm React ion: Dizzi ness; Not Available [facility] 4 04:14:24 7258166 famotidin e medicatio n headache Not available Not available 05/17/20232019 4278 RxNorm React ion: Heada len; Not Available [facility] 4 04:14:25 546392 Product containin g penicilli n (product) medicatio n hives Not available Not available 05/15/20232013 78271 8001 SNOMED React ion: Hives ; Itchi ng; Not Available [facility] 4 21:21:35 518683 Ceftin medicatio n hives itching Not available Not available Not available 05/15/20232022 27419 6 RxNorm React ion: Itchi ng; Not Available [facility] 4 19:17:09 924592 clindamyc in Not available itching Not available Not available 05/15/20232022 2582 RxNorm React ion: Itchi ng; Not Available [facility] 4 19:17:10 811836 sulfasala zine medicatio n nausea Not available Not available 05/15/20232015 9524 RxNorm React ion: Nause a; Not Available [facility] 4 21:21:36 613513 Biaxin medicatio n other Not available Not available 05/15/2023202272 9 RxNorm React ion: Other ; Comme nt: Other Jesse salas ns: Healt h Note, ADPVe ndor 2022 10:54 AM garli c and onion s; ; Not Available [facility] 4 19:17:08 Medications Name Sig Start Date Stop [...] % 98 % 20 /min Denilson Leavitt [facility] 09:04:53 Date Recorded Body weight Heart rate Systolic And Diastolic Provider Name and Address Organization Details Last Updated DateTime 10/04/2024 47303.01 g 79 /min 124/76 mm[Hg] Aubrie Garcia [facility] 10/04/2024 09:42:26 Date Recorded Body weight Heart rate Systolic And Diastolic Provider Name and Address Organization Details Last Updated DateTime 01/31/2025 53728.05 g 83 /min 124/74 mm[Hg] Aubrie Garcia [facility] 01/31/2025 09:51:33 Date Recorded Body weight Systolic And Diastolic Provider Name and Address Organization Details Last Updated DateTime 02/09/2024 50455.82 g 158/90 mm[Hg] Debra Kern [facility] 02/09/2024 10:04:20 Social History None recorded. Functional Status None recorded. Mental Status None recorded. Family History Nothing Reported. Medical History No medical history recorded. Gynecological HistoryNo gynecological history recorded. Obstetrics History GPAL:G 0 P 0 0 0 0 Past Encounters Encounter ID Performer Location Encounter Start Date Encounter Closed Date Diagnosis/Indication Diagnosis SNOMED-CT Code Diagnosis ICD10 Code Diagnosis IMO Codes Diagnosis Note [id number] Aristeo Kerr MD [address] [facility] ([place]) [address] [place] [address] 3 10/13/2023 09:49:43 10/14/2023 07:10:34 Taking high risk medication 8149783586 39936 Z91.89 Seropositi ve erosive rheumatoid arthritis 074763800 M05.9 Long-term current use of immunosuppressive drug 693788210 Z79.622 [id number] Aristeo Kerr MD [address] [facility] ([place] [address] [place] [address] 3 02/09/2024 09:48:52 02/12/2024 18:06:08 Taking high risk medication 0026813622 77546 Z79.134 3873825 Seropositi ve erosive rheumatoid arthritis 004897105 M05.9 Long-term current use of drug therapy 741276972 Z79.622 8383241001 [id number] Aristeo Kerr MD [address] [facility] ([place]) [address] [place] [address] 65723-096 3 06/14/2024 09:43:23 06/16/2024 05:05:09 Lumbar radiculopathy 597557906 M54.16 82960 Taking hig h risk medication 0637765236 66568 Z79.507 1770080 Seropositi ve rheumatoid arthritis 839908041 M05.9 3512042 [id number] Jeremiah Chávez MD [address] [facility] ([place]) [address] [place] [address],[address] [address] 07/25/2024 08:45:52 07/25/2024 12:01:22 [id number] Aristeo Kerr MD [address] [facility] ([place]) [address] [place] [address],[place] [address] 10/04/2024 09:30:03 10/08/2024 18:21:41 Taking high risk medication 1897323744 93298 Z79.067 2353925 Seropositi ve erosive rheumatoid arthritis 212141974 M05.9 Long-term current use of drug therapy 911291743 Z79.622 1226188558 [id number] Aristeo Kerr MD [address] [facility] ([place]) [address] [place] [address],[place] [address] 01/31/2025 09:37:16 02/01/2025 06:31:28 Taking high risk medication 1293187043 23043 Z79.236 [id number] Health Concerns Section Related Observation LastModified by Organization Detai ls LastModified Time None Recorded Concern Status LastModified by Organization Details LastModified Time None Recorded Advance Directives Directive None Recorded Payers Insurance Date Sequence Insurance Name Policy Number Policy Jeffries Covered Member ID Jeffries Member ID Guarantor Name 02/01/2025 1 [employer] (MEDICARE REPLACEMENT/ ADVANTAGE - PPO) [id number] Qing Mcnair [id number] Qing Mcnair Notes Date Note Type Note Provider Name and Address Organization Details Recorded Time 02/09/2024 text/html This is a 68-year-old female [...] she remains at her normal state of health.klp Aristeo Kerr MD [address] [place] [address], [phone], [facility] 02/12/2024 08:51:10 07/25/2024 text/html 68 year old [...] any assistive devices. She works in the [employer]. She has not had any physical therapy for the back or the leg. She has had a gallbladder removal without any improvement of the right-sided pain. 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 Jeremiah Chávez MD [address] [place] [address], [phone], [facility] 07/25/2024 20:29:20 01/31/2025 text/html Qing Mcnair is a 69-year-old female with seropositive erosive rheumatoid arthritis presenting for routine follow-up. She remains on Rinvoq 15 mg once daily monotherapy and reports good tolerance without complications. She denies febrile illnesses and reports no cardiovascular or embolic events. She is under the care of orthopedics at [facility] for severe right knee ankylosis; a recent injection provided little improvement. She has consulted another orthopedic surgeon for right knee fibrosis and is scheduled for further evaluation. She tries to stay active. She notes significant low back issues, which she attributes to the severe loss of motion in her right knee. She denies constitutional symptoms. Aristeo Kerr MD [address] [facility], [place], [address], [facility] 01/31/2025 10:20:45 OBGyn Episode No OBEpisode recorded.
--- OUTSIDE RECORDS SUMMARY | 2025-02-17 09:10 | XMS_ITS | Clinical Summary ---
Author Organization [facility] Address [address] [place] [address] Care Team Providers Care Promotion Manager Name Role Phone NataliaKrunal foster Primary Care Provider [phone] Source Comments [facility],non-owned Affiliates and Associated Physician Practices is amultiple site organization consisting of ambulatory clinics and hospital sitesin [place], [place], [place] and [place]. This disclosure is being madepursuant to the Care Everywhere program and may not contain all information available regarding this patient. Last updated 18.[facility] Social History Tobacco Use Types Packs/Day Years [...] age to complete this topic Insurance [facility] Address: [facility] [id number] [place] [address] [facility] AETNA MEDICARE ADV * Guarantor: ÁLVARO MCNAIR Account Type Relation to Patient Date of Phone Billing Address Personal/Family [address] [place] [address] * Guarantor: ÁLVARO MCNAIR Account Type Relation to Patient Date of Phone Billing Address Personal/Family [address] [place] [address] * Guarantor: ÁLVARO MCNAIR Account Type Relation to Patient Date of Phone Billing Address Personal/Family [address] [place] [address] Care Teams Promotion Manager Relationship Specialty Start Date End Date Krunal Sarmiento DO [address] [place] [address] PCP - General Family Medicine 07/10/20
--- OUTSIDE RECORDS SUMMARY | 2025-02-17 09:10 | XMS_ITS | Encounter Summary ---
Author Organization [facility] Address 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
--- OUTSIDE RECORDS SUMMARY | 2025-02-17 09:10 | XMS_ITS | Clinical Summary ---
Author Organization [facility] Address [address] [place] [address] Care Team Providers Care District Branch Manager Name Role Phone Bart Connor MD [...] - 02/07/2025 11:59 PM CDT Hospital Encounter [facility] Nuclear Medicine [address] [place] [address] Delmar Sullivan MD Discharge Disposition: Home or Self Care 02/07/2025 7:51 AM CDT - 02/07/2025 11:59 PM CDT Hospital Encounter [facility] Medicine [address] [place] [address] Delmar Sullivan MD Discharge Disposition: Home or Self Care 02/05/2025 External Device Data STL ABSTRACTION Provider, Abstract 02/05/2025 External Device Data STL ABSTRACTION Provider, Abstract 02/04/2025 External Device Data ST[facility] ABSTRACTION Provider, Abstract 01/29/2025 10:09 AM CDT - 01/29/2025 11:59 PM CDT Hospital Encounter [facility] Diagnostic XR [address] [place] [address] Delmar Sullivan MD Discharge Disposition: Home or Self Care 01/21/2025 Transcribe Orders [facility] Radiology [address] [place] [address] Delmar Sullivan MD 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, initial encounter (Primary Dx) 01/16/2025 Transcribe Orders [facility] Radiology [address] [place] [address] Delmar Sullivan MD Pain due to total [...] on file 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 DICTATION LOCATION: Location [address] [place] [address] 01/29/2025 2:34 PM CDT FLUOROSCOPIC-GUIDED RIGHT KNEE [...] with no fluid obtained. DICTATION LOCATION: Location [address] [place] [address] Delmar Sullivan MD DIAGNOSTIC IMAGING OR DERABLES Final Result from Last 3 Months Insurance AETNA PPO MCR Advance Directives For more information, please contact: [phone] * Full Code (Latest Code Status on File) Date Activated Date Inactivated Comments 01/28/2016 9:25 AM 01/28/2016 3:07 PM * Full Code Date Activated Date Inactivated Comments 01/28/2016 8:24 AM 01/28/2016 9:25 AM Care Teams District Branch Manager Relationship Specialty Start Date End Date Bart Connor MD [facility] [place] [address] PCP - General Family Practice 01/13/16
--- OUTSIDE RECORDS SUMMARY | 2025-02-17 09:11 | XMS_ITS | Clinical Summary ---
Author Organization [facility] Address [address] [place] [address] Care Team Providers Care C++ Professor Name Role Phone NataliaKrunal foster Primary Care Provider [phone] Allergies Active Allergy Reactions Criticality Noted Date [...] Comments Blood Pressure 134/70 02/28/2024 4:30 PM BOOKKEEPER RECEPTIONIST Pulse 71 02/28/2024 4:30 PM BOOKKEEPER RECEPTIONIST Temperature 37.1 C (98.8 F) 02/28/2024 4:30 PM BOOKKEEPER RECEPTIONIST Respiratory Rate 16 02/28/2024 4:30 PM BOOKKEEPER RECEPTIONIST Oxygen Saturation 92% 02/28/2024 4:30 PM BOOKKEEPER RECEPTIONIST Inhaled Oxygen Concentration - - Weight 57.5 kg (126 lb 12.2 oz) 024 10:45 AM BOOKKEEPER RECEPTIONIST Height 166.4 cm (5' 5.5) 02/28/2024 10 :45 AM BOOKKEEPER RECEPTIONIST Body Mass Index 20.77 02/28/2024 10:45 AM BOOKKEEPER RECEPTIONIST Plan of Treatment Health Maintenance Due Date [...] this topic Medical Devices Implanted Type Area Stamping Bench Die Maker Device Identifier Shelf Expiration Date Model / Serial / Lot Cement Bone Refobacin Sterile Latex Free Disposable - [id number] Implanted:Qty : 2 on 11/02/2021 by Gilberto Ponce MD at [facility] Cement Implant Right: Knee [employer] 09/15/2023 [id number] / / Component Tibial Stemmed Porous Megan Size 5 - [id number] Implanted:Qty : 1 on 11/02/2021 by Gilberto Ponce MD at [facility] Knee Components Right: Knee [employer] [id number] 01/04/2025 [id number] / / [id number] Stem Megan Femur Ext 11 X 130mm Fluted - [id number] Implanted:Qty : 1 on 11/02/2021 by Gilberto Ponce MD at [facility] Knee Components Right: Knee [employer] [id number] 06/14/2028 [id number] / / [id number] Stem Megan Tibial Ext 10 X 145mm Str - [id number] Implanted:Qty : 1 on 11/02/2021 by Gilberto Ponce MD at [facility] Knee Components Right: Knee [employer] [id number] 10/15/2027 [id number] / / [id number] Stent Ureteral Contour Vl 4.8fr X 22-30cm - [id number] Implanted:Qty : 1 on 11/08/2023 by Clyde Tom MD at [facility] Stent Right: Ureter Trist [id number] 09/04/2026 [id number] / / [id number] Anti-Rotation Screw Implanted:Qty : 1 on 11/02/2021 by Gilberto Ponce MD at [facility] Right: Knee [employer] 09/25/[id number] / / Rotating Hinge Knee Femoral Component Implanted:Qty : 1 on 11/02/2021 by Gilberto Ponce MD at [facility] Right: Knee [employer] [id number] 09/14/2024 / / [id number] Articular Surface Implanted:Qty : 1 on 11/02/2021 by Gilberto Ponce MD at [facility] Right: Knee [employer] [id number] 06/28/2025 / / [id number] Femoral Metaphyseal Cone Implanted:Qty : 1 on 11/02/2021 by Gilberto Ponce MD at [facility] Right: Knee [employer] [id number] 10/04/2030 [id number] / / [id number] Tibia Central Cone Implanted:Qty : 1 on 11/02/2021 by Gilberto Ponce MD at [facility] Right: Knee [employer] [id number] 11/16/2029 [id number] / / [id number] Explanted Type Area Stamping Bench Die Maker Device Identifier Shelf Expiration Date Model / Serial / Lot System Bone Cement Clearmix 1 2 - [id number] Explanted:Qty: 1 on 11/02/2021 by Gilberto Ponce MD at [facility] Cement Implant Right: Knee [employer] [id number] / / 2mm Set Screw Assembly Manager Explanted:Qty: 1 on 11/02/2021 by Gilberto Ponce MD at [facility] Right: Knee [employer] [id number] / / Insurance AETNA MEDICARE Advance Directives * Full Code (Latest Code Status on File) Date Activated Date Inactivated Comments 11/02/2021 6:57 PM 11/03/2021 7:03 PM Care Teams C++ Professor Relationship Specialty Start Date End Date Krunal Sarmiento DO [address] [place] [address] PCP - General FAMILY PRACTICE 10/08/19
--- OUTSIDE RECORDS SUMMARY | 2025-02-17 09:11 | XMS_ITS | Clinical Summary ---
Author Organization [facility] Medical Office Building 1 Address [address] [address] Care Team Providers Care Corporate Director Of Human Resources Name Role Phone Krunal Sarmiento Primary Care [...] Department Care Team Description 02/06/2025 Results Follow-Up [facility] Gastroenterology at [address] [place] [address] Sridhar Patel MD IgA, Tissue transglutaminase IgA (TGG-IgA Ab), Lipase, Additional followed-up results: 4 02/05/2025 2:00 PM CDT Lab [address] [address] Abdominal pain, unspecified abdominal location 02/05/2025 1:30 PM CDT Office Visit [facility] Gastroenterology at [address] [place] [address] Sridhar Patel MD Abdominal pain, unspecified abdominal location (Primary Dx) 01/08/2025 Transcribe Orders [facility] Gastroenterology at [address] [place] [address] James Holm MA History of colon polyps (Primary Dx); Gastroesophageal reflux disease with esophagitis without hemorrhage; Nausea 12/26/2024 8:56 AM CDT - 12/26/2024 11:59 PM CDT Hospital Encounter [facility] [address] [facility] [address] [place] [address] Cyn Carrera MD History of total replacement of left ankle; Chronic pain of left ankle Discharge Disposition: Discharge to home or self care 12/23/2024 Telephone Radiology - [address] [facility] [address] [place] [address] Melina Nelson, 12/17/[address] 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 73 m2 Comment: [...] MD LAB BLOOD ORDERABLES Final R esult [facility] [address] [facility] [place] [address] * Differential, auto (02/05/2025 2:00 PM CDT) [facility] Neutrophil abs 2.28 1.50 - 6.50 K/cumm Imm gran abs 0.02 0.00 - 0.10 K/cumm [facility] Lymphocyte abs 1.40 0.80 - 3.30 K/cumm [facility] Monocyte abs 0.40 0.20 - 0.80 K/cumm [facility] Eosinophil abs 0.04 0.00 - 0.50 K/cumm [facility] Basophil abs 0.04 0.00 - 0.10 K/cumm [facility] Neutrophil pct 54.4 % [facility] Comment: Interpretive Data Percent cell count reference ranges are not reported, since discordance with absolute values may lead to misinterpretation of CBC data. Current Interpretive Data was last revised on 2017. Imm gran pct 0.5 % [facility] Comment: Interpretive Data Percent cell count reference ranges are not reported, since discordance with absolute values may lead to misinterpretation of CBC data. Current Interpretive Data was last revised on 2017. Lymphocyte pct 33.5 % [facility] Comment: Interpretive Data Percent cell count reference ranges are not reported, since discordance with absolute values may lead to misinterpretation of CBC data. Current Interpretive Data was last revised on 2017. Monocyte pct 9.6 % [facility] Comment: Interpretive Data Percent cell count reference ranges are not reported, since discordance with absolute values may lead to misinterpretation of CBC data. Current Interpretive Data was last revised on 2017. Eosinophil pct 1.0 % [facility] Comment: Interpretive Data Percent cell count reference ranges are not reported, since discordance with absolute values may lead to misinterpretation of CBC data. Current Interpretive Data was last revised on 2017. Basophil pct 1.0 % [facility] Comment: Interpretive Data Percent cell count reference ranges are not reported, since discordance with absolute values may lead to misinterpretation of CBC data. Current Interpretive Data was last revised on 2017. Blood 02/05/2025 2:00 PM CDT 02/05/2025 6:19 PM CDT Sridhar Patel MD LAB BLOOD ORDERABLES Final R esult [facility] [address] [facility] Department of Laboratories [place], [place] [id number] * (ABNORMAL) CBC with auto differential (02/05/2025 2:00 PM CDT) WBC 4.18 3.80 - 9.90 K/cumm Hgb 11.7(L) 11.9 - 15.5 g/dL [facility] Hct 36.4 35.6 - 45.5 % [facility] Plt 286 150 - 400 K/cumm [facility] MPV 10.0 9.1 - 12.3 fL [facility] RBC 3.47(L) 3.90 - 5.20 M/cumm [facility] MCV 104.9(H) 81.3 - 96.4 fL [facility] MCH 33.7(H) 27.1 - 33.3 pg [facility] MCHC 32.1(L) 32.3 - 35.7 g/dL [facility] RDW CV 13.2 11.1 - 14.9 % [facility] RDW SD 50.6(H) 35.7 - 48.1 fL [facility] NRBC abs 0.00 0.00 - 0.01 K/cumm [facility] Blood 02/05/2025 2:00 PM CDT 02/05/2025 6:19 PM CDT Sridhar Patel MD LAB BLOOD ORDERABLES Final R esult Performing Organization Address [facility] Co de Phone Number [address] [place] [address] * Tissue transglutaminase IgA (TGG-IgA Ab) (02/05/2025 2:00 PM CDT) [facility] TTG ab, IgA <0.5 <=14.9 units/mL Comment: Interpretive data Negative: <15 units/mL Positive: > or equal to 15 units/mL Current interpretive data was last revised on 2016. Testing performed by: [facility], [address] [place] [address] Blood 02/05/2025 2:00 PM CDT 02/05/2025 9:33 PM CDT Sridhar Patel MD LAB BLOOD ORDERABLES Final R esult Performing Organization Address City/[facility]/ZIP Co de Phone Number [address] [place] [address] * Lipase (02/05/2025 2:00 PM CDT) Pathologist [facility] Lipase 30 10 - 99 Units/L Blood 02/05/2025 2:00 PM CDT 02/05/2025 6:19 PM CDT Sridhar Patel MD LAB BLOOD ORDERABLES Final R esult Performing Organization Address [facility] Co de Phone Number [address] [address] * IgA (02/05/2025 2:00 PM CDT) Pathologist [facility] Immunoglobulin A 130 70 - 400 mg/dL Blood 02/05/2025 2:00 PM CDT 02/05/2025 6:19 PM CDT Sridhar Patel MD LAB BLOOD ORDERABLES Final R [facility] Performing Organization Address [facility] de Phone Number [address] [address] * (ABNORMAL) Comprehensive metabolic panel (02/05/2025 2:00 PM CDT) Pathologist [facility] Sodium 136 135 - 145 mmol/L Potassium, pl 4.6 3.3 - 4.9 mmol/L [facility] Chloride 98 97 - 110 mmol/L [facility] CO2 28 22 - 32 mmol/L [facility] Anion gap 10 2 - 15 mmol/L [facility] BUN 13 6 - 25 mg/dL [facility] Creatinine 0.57(L) 0.60 - 1.10 mg/dL [facility] Glucose 92 70 - 199 mg/dL [facility] Comment: Interpretive Data Fasting glucose >/= 126 [...] 2022. Calcium 10.3 8.5 - 10.3 mg/dL [facility] Bilirubin, total 0.5 0.1 - 1.2 mg/dL [facility] Protein, pl 7.4 6.5 - 8.5 g/dL [facility] Albumin 5.0 3.5 - 5.0 g/dL [facility] Alk phos 81 40 - 130 Units/L [facility] ALT 22 7 - 45 Units/L [facility] AST 39 10 - 45 Units/L [facility] Blood 02/05/2025 2:00 PM CDT 02/05/2025 6:19 PM CDT us Sridhar Patel MD LAB BLOOD ORDERABLES Final R esult Performing Organization Address [facility] Co de Phone Number [facility] [address] [facility] [place] [address] * FL Fluoro Guided Injection Ankle Left (12/26/2024 9:29 AM CDT) Narrative [email or web address] - 12/26/2024 9:29 AM CDT The images from this study are not interpreted by Radiology. Please refer to the physician's procedure / OR operative note. us Karen Monroe MD IMG FLUOROSCOPY PROCEDURES Final Result Performing Organization Address [facility] Co de Phone Number [email or web address] * CT [...] from Last 3 Months Insurance AETNA MEDICARE [facility] OPEN ACCESS AETNA MEDICARE Care Teams Corporate Director Of Human Resources Relationship Specialty Start Date End Date Krunal Sarmiento DO [address] [place] [address] PCP - General Family Medicine 07/01/21
[2025-02-17] MEDS: SODIUM CHLORIDE 0.9% IV 1,000 ML 999 ML IV CONT (09:16)
[2025-02-17] MEDS: KETOROLAC 30 MG/ML VIAL (*BKC) IV PUSH (09:16)
[2025-02-17] MEDS: ONDANSETRON INJ 4 MG/2 ML VIAL IV PUSH (09:17)
[2025-02-17 10:46] LABS: Add Urine Microscopic? NO; Appearance Urine Clear (Clear); Glucose Urine UA Negative (Negative); Leukocyte Esterase Ur Negative LEU/UL (Negative); Nitrate Urine Negative (Negative); Specific Grav Ur 1.020 (1.010-1.020)
== END 2025-02-17 11:55 | disposition short-term general hospital (02) ==
PROVIDERS: Emergency Provider Emergency Medicine; PCP Family Medicine
DX: K52.9 Noninfective gastroenteritis and colitis, unspecified (principal); S32.031A Stable burst fracture of third lumbar vertebra, initial encounter for closed fracture; I10 Essential (primary) hypertension; M06.9 Rheumatoid arthritis, unspecified; X58.XXXA Exposure to other specified factors, initial encounter
CPT/HCPCS: 36415; 72131; 80053; 81003; 85025; 96361; 96374; 96375; 99284; 99285; J1885; J2405; J7030